=== PATIENT | male | born 1960 | race Caucasian/White ===

== ENCOUNTER 2021-03-27 00:45 | Inpatient (IN) | payer BC, SELFPAY ==
--- NOTE | ~2021-03-27 | US_ITS ---
EXAMINATION: US liver CLINICAL INFORMATION: Evaluate gallbladder, bile duct COMPARISON: CT scan from 03/27/2021 same day TECHNIQUE: High-frequency linear transducer ultrasound utilized, area of interest scanned, liver gallbladder and biliary tree FINDINGS: Cyst in the left lobe of the liver 1.8 x 1.8 x 1.3 cm, cyst in the right lobe 1.3 x 1.6 x 1.3 cm. The liver is diffusely echogenic suggesting hepatic steatosis. Difficult to confidently correlate to the finding on ultrasound by the described lesion on CT scan given the limitation of ultrasound. Gallbladder: There are multiple gallstones. No ultrasound evidence of cholecystitis. No wall thickening, no tenderness, no pericholecystic fluid. CBD normal in diameter 0.4 cm. Right kidney normal in size and texture 15.5 cm, there is a cyst in the right kidney 2.7 x 3.2 x 2.8 cm. US/US abdomen limited IMPRESSION: 1. Cholelithiasis without ultrasound evidence of acute cholecystitis. 2. Left kidney was not included on this limited liver ultrasound, described complex cystic lesion in the left kidney by CT scan not seen by ultrasound or evaluated, consider correlation with follow-up MRI. 3. Consider correlation with follow-up MRI to further characterize the hypodense liver cystic lesions seen on the CT scan.
--- NOTE | ~2021-03-27 | CT_ITS ---
EXAMINATION: CT ABDOMEN AND PELVIS WITHOUT CONTRAST CLINICAL INFORMATION: Right-sided pain COMPARISON: None TECHNIQUE: Multidetector volumetric imaging was performed from the superior aspect of the liver through the pubic symphysis. Sagittal and coronal reformatted images were obtained on the technologist's workstation. This CT examination was performed using dose optimization techniques as appropriate, variously including the following: *Automated exposure control *Adjustment of mA and/or kV according to patient size (this includes techniques or standardized protocols for targeted exams where dose is matched to indication/reason for exam; i.e. extremities or head) *Use of iterative reconstruction technique DLP: 893 mGy-cm FINDINGS: LUNG BASES: Minimal nodular density right base posteriorly measuring approximately 2 mm as well as the middle lobe x2 measuring 3 and 4 mm lateral segment. Pleural-based nodular density left base posterolaterally measures approximately 7 mm. There is nonspecific pleural thickening at the right base posteriorly. Minor pleural fluid not excluded. No pericardial disease. LIVER, GALLBLADDER, AND BILIARY TREE: Hepatomegaly with a slightly irregular contour to the liver prominence of the left lobe suggesting cirrhosis. Low-density focus within the right lobe measuring up to 11 mm segment 5. No biliary ductal dilatation grossly. Gallstones without acute inflammatory changes within the gallbladder lumen. PANCREAS: Mild peripancreatic haziness infiltration suggesting mild pancreatitis within the pancreatic head. The pancreatic duct dilatation or any gross abnormality on this nonenhanced study. Pancreatic duct appears top normal he up to 3 mm best seen coronally. No fluid collection. Acute inflammatory changes extend into the pelvis where there is free fluid measuring simple fluid at 2 Hounsfield units. SPLEEN: Splenule noted. ADRENAL GLANDS: Unremarkable. KIDNEYS AND URETERS: No hydronephrosis but there are multiple cysts high density well-defined lesions as well as cystic lesions. Lesion upper pole measures up to 73 Hounsfield units and up to 4.6 cm maximum diameter. These are all consistent with hyperdense cysts. No perinephric collection. No definite calculus obstructive uropathy. BLADDER: Unremarkable. GASTROINTESTINAL TRACT: The small and large bowel are unremarkable. The appendix is unremarkable. ABDOMINAL WALL: Small fat-containing umbilical hernia. LYMPH NODES: There is generalized reactive appearing lymphadenopathy starting at the bouchra hepatis as well as along the retroperitoneum. No pathologic enlargement. VASCULAR: Unremarkable. PELVIC VISCERA: Unremarkable. OSSEOUS STRUCTURES: Unremarkable. CT/CT abdomen pelvis wo con IMPRESSION: 1. Findings are most consistent with acute pancreatitis on this nonenhanced study. Consider elective follow-up to exclude an underlying lesion with contrast. 2. Findings of cirrhosis with nonspecific segment 5 lesion which should be assessed with MRI with contrast more definitively. 3. Multiple renal lesions favoring hyperdense cyst and benign cysts which can also be definitively characterized on MRI. 4. Gallstones without acute inflammatory changes. 5. Nonspecific pulmonary nodules at the bases as above. According to the UPDATED 2017 Fleischner Society recommendations, the advised follow-up imaging for multiple solid nodules, the largest measuring 6 mm or greater, is: LOW RISK PATIENT: CT at 3-6 months, then consider CT at 18-24 months. HIGH RISK PATIENT: CT at 3-6 months, then at 18-24 months.
[2021-03-27 01:04] VITALS: BP 153/89; PULSE 105; RESP 22; TEMP 36.5; O2SAT 96; BMI 30.9
[2021-03-27 06:34] VITALS: BP 135/89; PULSE 109; RESP 16; TEMP 37; O2SAT 96
[2021-03-27 06:52] LABS: MANUAL DIFF FLAG NO
--- NOTE | 2021-03-27 06:53 | ED.ABDPAIN ---
HPI - Abdominal Pain General Chief Complaint: Abdominal Pain Stated Complaint: abd and side pain Time Seen by Provider: 03/27/21 06:53 Source: patient Mode of arrival: ambulatory Limitations: no limitations History of Present Illness HPI narrative: Patient constipated for last 2 weeks, took stool softener moving his bowels now, complaining of diffuse abdominal pain mostly localized in right upper quadrant epigastric and left lower quadrant patient keep moving from 1 location on the location no relation with food patient does not feel hungry feel bloated all the time . Patient never had any gallstone or kidney stone no hematuria no fever no chills no blood in the stool never had similar pain in the past no abdominal surgeries in the past. Related Data Home Medications Medication Instructions Recorded Confirmed allopurinol 300 mg tablet 300 mg PO DAILY 12/02/20 03/27/21 timolol 0.25 % eye drops 1 drp OPHTHALMIC (EYE) DAILY 12/02/20 03/27/21 B-complex with vitamin C 1 tab PO DAILY 03/27/21 03/27/21 clonidine HCl 0.1 mg tablet 0.1 mg PO DAILY 03/27/21 03/27/21 multivitamin 1 tab PO DAILY 03/27/21 03/27/21 Previous Rx's Medication Instructions Recorded lisinopril 5 mg tablet 5 mg PO DAILY #100 tab 09/25/20 metformin 500 mg tablet 500 mg PO BID #60 tab 01/12/21 atorvastatin 10 mg tablet 10 mg PO DAILY #30 tab 02/25/21 amlodipine 5 mg tablet 5 mg PO DAILY #30 tab 03/09/21 Allergies Allergy/AdvReac Type Severity Reaction Status Date / Time No Known Allergies Allergy Unverified 12/02/20 07:42 [No Known Allergies*] Review of Systems Review of Systems Constitutional : No Weight loss, No Fever, No Chills ENT/Mouth : No sore throat, No Rhinorrhea Eyes: No Eye Pain, No Swelling Cardiovascular : No Chest Pain, no palpitations Respiratory : No Cough, No Sputum, no shortness of breath Gastrointestinal : no Nausea, No Vomiting, No Diarrhea, + abdominal Pain, no black stools Genitourinary : No Dysuria, No Urinary Frequency Musculoskeletal : No joint pain, No Myalgias, No Joint Swelling Skin : No Skin Lesions, No rash Neuro : No Weakness, No Numbness, No Dizziness, No Headache Psych : No Anxiety/Panic, No Depression Heme/Lymph: No Bruising, No Lymphadenopathy Endocrine : No Polyuria, No Polydipsia All other systems reviewed and are negative Physical Exam Vital Signs: Vital Signs: Last Vital Signs Temp 98.6 F 03/27/21 06:34 Pulse 94 03/27/21 10:51 Resp 18 03/27/21 10:51 BP 139/82 03/27/21 10:51 Pulse Ox 97 03/27/21 10:51 Body Mass Index 30.9 Appearance: Alert. Oriented X3. No acute distress. Eyes: No pallor or icterus ENT: Pharynx normal. Oral Mucosa moist Neck: Normal inspection. Neck supple. CVS: Normal heart rate and rhythm. Pulses normal. Respiratory: No respiratory distress. Equal air entry bilateral, no wheezing/rales/rhonchi Abdomen: Soft, mild tenderness epigastric area and right upper quadrant and mid abdomen no rebound tenderness or guarding Bowel sounds are present, no mass palpable, no CVA tenderness Skin: Skin warm and dry. Normal skin color. Normal skin turgor. Extremities: No lower extremity edema. No calf tenderness Neuro: Oriented X 3. MDM - Abdominal Pain MDM Narrative Medical decision making narrative: Patient history of alcohol use never had any pancreatitis in the past came here for 2 weeks of mid abdominal pain with slight nausea and fullness CT scan showed pancreatitis uncomplicated with gallstones. Lipase 3885. Will admit patient for IV hydration and pain management. Patient's triglyceridein 2018 was normal Differential Diagnosis Differential diagnosis: Likely abdominal pain Lab Data Attestation: I reviewed the patient's lab results. Result diagrams: 03/27/21 06:48 03/27/21 11:48 Labs: Lab Results 03/27/21 03/27/21 03/27/21 Range/Units 06:48 06:48 06:48 WBC 13.0 H (4.8-10.8) X10*3/uL RBC 4.37 L (4.60-5.80) X10*6/uL Hgb 14.7 (14.0-18.0) g/dl Hct 41.2 L (42-52) % MCV 94.3 (80-98) fL MCH 33.6 H (27.0-33.0) pg MCHC 35.7 (31.0-36.0) g/dl RDW 12.7 (11.0-16.0) % Plt Count 235 (160-400) X10*3/uL MPV 9.8 (9.4-12.4) fL Immature Gran % (Auto) 0.7 H (0.0-0.4) % Neut % (Auto) 78.2 H (45-73) % Lymph % (Auto) 9.2 L (20-40) % [place] % (Auto) 11.5 H (2-11) % Eos % (Auto) 0.2 (0-4) % Baso % (Auto) 0.2 (0-2) % Lymph # (Auto) 1.2 (1.2-4.9) X10*3/uL [place] # (Auto) 1.5 H (0.1-1.2) X10*3/uL Eos # (Auto) 0.0 (0.0-0.4) X10*3/uL Baso # (Auto) 0.0 (0.0-0.2) X10*3/uL Abs Immat Gran (auto) 0.09 H (0.00-0.03) X10*3/uL Absolute Neuts (auto) 10.2 H (2.0-8.3) X10*3/uL Absolute Nucleated RBC 0.000 (0.0-0.012) X10*3/uL Nucleated RBC % (auto) 0.0 (0.0-0.2) /100WBC Sodium 125 L (135-145) mmol/L Potassium 4.7 (3.3-5.1) mmol/L Chloride 92 L (96-108) mmol/L Carbon Dioxide 21 L (22-29) mmol/L Anion Gap 17 (12-20) BUN 7 L (9-16) mg/dL Creatinine 0.70 (0.5-1.4) mg/dL Estim Creat Clear Calc 151.9 Estimated GFR > 60 POC Glucose (60-115) mg/dL Random Glucose 173 H (60-115) mg/dL Osmolality (281-305) mosm/kg Calcium 9.7 (8.4-10.2) mg/dL Magnesium 2.1 (1.6-2.6) mg/dL Total Bilirubin 0.9 (0.0-1.0) mg/dL Direct Bilirubin 0.5 (0.0-0.5) mg/dL AST 70 H (5-37) U/L ALT 67 H (0-40) U/L Alkaline Phosphatase 261 H (39-117) U/L Total Protein 8.1 H (6.5-8.0) g/dL Albumin 4.2 (3.5-5.0) g/dL Triglycerides 104 mg/dL LDL Cholesterol Direct Cancelled Lipase 3885 H (8-78) U/L COVID-19 (RACHEL) (Negative) COVID-19 Clin Com 03/27/21 03/27/21 03/27/21 Range/Units 06:48 10:22 10:31 WBC (4.8-10.8) X10*3/uL RBC (4.60-5.80) X10*6/uL Hgb (14.0-18.0) g/dl Hct (42-52) % MCV (80-98) fL MCH (27.0-33.0) pg MCHC (31.0-36.0) g/dl RDW (11.0-16.0) % Plt Count (160-400) X10*3/uL MPV (9.4-12.4) fL Immature Gran % (Auto) (0.0-0.4) % Neut % (Auto) (45-73) % Lymph % (Auto) (20-40) % [place] % (Auto) (2-11) % Eos % (Auto) (0-4) % Baso % (Auto) (0-2) % Lymph # (Auto) (1.2-4.9) X10*3/uL [place] # (Auto) (0.1-1.2) X10*3/uL Eos # (Auto) (0.0-0.4) X10*3/uL Baso # (Auto) (0.0-0.2) X10*3/uL Abs Immat Gran (auto) (0.00-0.03) X10*3/uL Absolute Neuts (auto) (2.0-8.3) X10*3/uL Absolute Nucleated RBC (0.0-0.012) X10*3/uL Nucleated RBC % (auto) (0.0-0.2) /100WBC Sodium (135-145) mmol/L Potassium (3.3-5.1) mmol/L Chloride (96-108) mmol/L Carbon Dioxide (22-29) mmol/L Anion Gap (12-20) BUN (9-16) mg/dL Creatinine (0.5-1.4) mg/dL Estim Creat Clear Calc Estimated GFR POC Glucose 161 H (60-115) mg/dL Random Glucose (60-115) mg/dL Osmolality 266 L (281-305) mosm/kg Calcium (8.4-10.2) mg/dL Magnesium (1.6-2.6) mg/dL Total Bilirubin (0.0-1.0) mg/dL Direct Bilirubin (0.0-0.5) mg/dL AST (5-37) U/L ALT (0-40) U/L Alkaline Phosphatase (39-117) U/L Total Protein (6.5-8.0) g/dL Albumin (3.5-5.0) g/dL Triglycerides mg/dL LDL Cholesterol Direct Lipase (8-78) U/L COVID-19 (RACHEL) Negative (Negative) COVID-19 Clin Com See Note Imaging Data CT scan - abdomen: Attestation: I personally reviewed and interpreted this imaging study as follows: Radiologist's impression: [place] [id number] CT Scan Report Signed Patient: Jose De MR#: [id number] : 1960 Acct:[id number] Age/Sex: 61 / M ADM Date: 03/27/21 Loc: HO.ED Attending Dr: Ordering Physician: Juanito Vila MD Date of Service: 03/27/21 Procedure(s): CT abdomen pelvis wo con Accession Number(s): [id number] cc: Juanito Vila MD~ EXAMINATION: CT ABDOMEN AND PELVIS WITHOUT CONTRAST? CLINICAL INFORMATION: Right-sided pain? COMPARISON: None? TECHNIQUE: Multidetector volumetric imaging was performed from the superior aspect of the liver through the pubic symphysis. Sagittal and coronal reformatted images were obtained on the technologist's workstation.? This CT examination was performed using dose optimization techniques as appropriate, variously including the following: *Automated exposure control *Adjustment of mA and/or kV according to patient size (this includes techniques or standardized protocols for targeted exams where dose is matched to indication/reason for exam; i.e. extremities or head) *Use of iterative reconstruction technique DLP: 893 mGy-cm FINDINGS: LUNG BASES: Minimal nodular density right base posteriorly measuring approximately 2 mm as well as the middle lobe x2 measuring 3 and 4 mm lateral segment. Pleural-based nodular density left base posterolaterally measures approximately 7 mm. There is nonspecific pleural thickening at the right base posteriorly. Minor pleural fluid not excluded. No pericardial disease.? LIVER, GALLBLADDER, AND BILIARY TREE: Hepatomegaly with a slightly irregular contour to the liver prominence of the left lobe suggesting cirrhosis. Low-density focus within the right lobe measuring up to 11 mm segment 5. No biliary ductal dilatation grossly. Gallstones without acute inflammatory changes within the gallbladder lumen.? PANCREAS: Mild peripancreatic haziness infiltration suggesting mild pancreatitis within the pancreatic head. The pancreatic duct dilatation or any gross abnormality on this nonenhanced study. Pancreatic duct appears top normal he up to 3 mm best seen coronally. No fluid collection. Acute inflammatory changes extend into the pelvis where there is free fluid measuring simple fluid at 2 Hounsfield units. SPLEEN: Splenule noted.? ADRENAL GLANDS: Unremarkable.? KIDNEYS AND URETERS: No hydronephrosis but there are multiple cysts high density well-defined lesions as well as cystic lesions. Lesion upper pole measures up to 73 Hounsfield units and up to 4.6 cm maximum diameter. These are all consistent with hyperdense cysts. No perinephric collection. No definite calculus obstructive uropathy.? BLADDER: Unremarkable.? GASTROINTESTINAL TRACT: The small and large bowel are unremarkable. The appendix is unremarkable.? ABDOMINAL WALL: Small fat-containing umbilical hernia.? LYMPH NODES: There is generalized reactive appearing lymphadenopathy starting at the bouchra hepatis as well as along the retroperitoneum. No pathologic enlargement. VASCULAR: Unremarkable. PELVIC VISCERA: Unremarkable.? OSSEOUS STRUCTURES: Unremarkable.? CT/CT abdomen pelvis wo con IMPRESSION: ? 1. Findings are most consistent with acute pancreatitis on this nonenhanced study. Consider elective follow-up to exclude an underlying lesion with contrast. 2. Findings of cirrhosis with nonspecific segment 5 lesion which should be assessed with MRI with contrast more definitively. 3. Multiple renal lesions favoring hyperdense cyst and benign cysts which can also be definitively characterized on MRI. 4. Gallstones without acute inflammatory changes. 5. Nonspecific pulmonary nodules at the bases as above. According to the UPDATED 2017 Fleischner Society recommendations, the advised follow-up imaging for multiple solid nodules, the largest measuring 6 mm or greater, is: ?? LOW RISK PATIENT: CT at 3-6 months, then consider CT at 18-24 months. ?? HIGH RISK PATIENT: CT at 3-6 months, then at 18-24 months. Discharge Plan Discharge Clinical Impression: Pancreatitis Qualifiers: Chronicity: acute Pancreatitis type: alcohol induced Acute pancreatitis complication: no infection or necrosis Qualified Code(s): K85.20 - Alcohol induced acute pancreatitis without necrosis or infection Patient Disposition: Admitted As Inpatient [facility] Past Medical History Medical History Diabetes ETOH abuse HTN (hypertension) Hx of gout Hyperlipidemia Tobacco use Surgical History (Updated 03/27/21 @ 11:00 by ELIEL Azevedo) H/O left knee surgery Family History Family History (Updated 03/27/21 @ 11:04 by ELIEL Azevedo) Father Lung cancer Mother Diabetes Social History Social History (Updated 03/27/21 @ 11:05 by ELIEL Azevedo) Household Members: Spouse Alcohol intake: current Alcohol intake frequency: holidays/special occasions only Patient Tobacco Use Status: Never used Tobacco Use of substances other than those prescribed or required for medical reasons: No Advance Directives: No Advance Directives Information Provided: Yes
[2021-03-27 06:54] LABS: Basophils Percent Auto 0.2 % (0-2); Eosinophils Percent Auto 0.2 % (0-4); Hematocrit 41.2 % (42-52); Hemoglobin 14.7 g/dl (14.0-18.0); Imm Gran Abs Auto 0.09 X10*3/uL (0.00-0.03); Imm Gran Pct Auto 0.7 % (0.0-0.4); Lymphocytes Absolute Auto 1.2 X10*3/uL (1.2-4.9); Lymphocytes Percent Auto 9.2 % (20-40); Mean Corpuscular HGB Conc 35.7 g/dl (31.0-36.0); Mean Corpuscular Hemoglobin 33.6 pg (27.0-33.0); Mean Corpuscular Volume 94.3 fL (80-98); Mean Platelet Volume 9.8 fL (9.4-12.4); Monocytes Absolute Auto 1.5 X10*3/uL (0.1-1.2); Monocytes Percent Auto 11.5 % (2-11); Neutrophils Absolute Auto 10.2 X10*3/uL (2.0-8.3); Neutrophils Percent Auto 78.2 % (45-73); Platelet Count 235 X10*3/uL (160-400); Red Blood Count 4.37 X10*6/uL (4.60-5.80); Red Cell Distribution Width 12.7 % (11.0-16.0)
[2021-03-27 07:50] LABS: Alanine Aminotransferase 67 U/L (0-40); Albumin Level 4.2 g/dL (3.5-5.0); Alkaline Phosphatase 261 U/L (39-117); Anion Gap 17 (12-20); Aspartate Amino Transferase 70 U/L (5-37); Bilirubin Direct 0.5 mg/dL (0.0-0.5); Bilirubin Total 0.9 mg/dL (0.0-1.0); Blood Urea Nitrogen 7 mg/dL (9-16); Calcium 9.7 mg/dL (8.4-10.2); Carbon Dioxide 21 mmol/L (22-29); Chloride 92 mmol/L (96-108); Creatinine Clr Calc Pharmacy 151.9; Estimated Glomerular Filt Rate > 60; Glucose Random 173 mg/dL (60-115); Potassium 4.7 mmol/L (3.3-5.1); Sodium 125 mmol/L (135-145); Total Protein 8.1 g/dL (6.5-8.0)
[2021-03-27 07:55] LABS: Lipase 3885 U/L (8-78)
[2021-03-27] MEDS: 0.9 % Sodium Chloride 1,000 ML 999 ML IVCONT ×2 (08:17→10:41)
--- NOTE | 2021-03-27 08:18 | PC.NURSE ---
nad, ndeclined all meds, nad, sitting in chair w legs crossed
--- NOTE | 2021-03-27 10:27 | ECG_ITS ---
Test Reason : PANCREATITIS Blood Pressure : / mmHG Vent. Rate : 096 BPM Atrial Rate : 096 BPM P-R Int : 186 ms QRS Dur : 110 ms QT Int : 396 ms P-R-T Axes : 026 -28 016 degrees QTc Int : 500 ms Normal sinus rhythm Prolonged QT Abnormal ECG No previous ECGs available Referred By: Juanito Vila Electronically Signed By:SHI MONTIEL
--- NOTE | 2021-03-27 10:32 | PHA.MEDREC ---
Pharmacy Consult ? Medication Reconciliation Pharmacy has completed the medication reconciliation.
[2021-03-27 10:35] LABS: Glucose, Whole Blood 161 mg/dL (60-115)
[2021-03-27 10:48] LABS: Triglycerides 104 mg/dL
[2021-03-27 10:51] VITALS: BP 139/82; PULSE 94; RESP 18; O2SAT 97
[2021-03-27 10:52] LABS: COVID-19 Test Negative (Negative); IDNOW Serial# 9DD0AD1C
--- NOTE | 2021-03-27 10:55 | P.HPHOSP_ITS ---
History of Present Illness Date of Service: 03/27/21 <ELIEL Azevedo - Last Filed: 03/27/21 11:21> Chief Complaint: Abdominal pain <ELIEL Azevedo - Last Filed: 03/27/21 11:21> This is a <ELIEL Azevedo - Last Filed: 03/27/21 11:21> [facility] Medical History: Medical History Diabetes ETOH abuse HTN (hypertension) Hx of gout Hyperlipidemia Tobacco use <ELIEL Azevedo - Last Filed: 03/27/21 11:21> Functional capacity: independent ambulation <ELIEL Azevedo - Last Filed: 03/27/21 11:21> Family History: Family History (Updated 03/27/21 @ 11:04 by ELIEL Azevedo) Father Lung cancer Mother Diabetes <ELIEL Azevedo - Last Filed: 03/27/21 11:21> Surgical History: Surgical History (Updated 03/27/21 @ 11:00 by ELIEL Azevedo) H/O left knee surgery <ELIEL Azevedo - Last Filed: 03/27/21 11:21> Social History: Social History (Updated 03/27/21 @ 11:05 by ELIEL Azevedo) Household Members: Spouse Alcohol intake: current Alcohol intake frequency: holidays/special occasions only Patient Tobacco Use Status: Never used Tobacco Use of substances other than those prescribed or required for medical reasons: No Advance Directives: No Advance Directives Information Provided: Yes <ELIEL Azevedo - Last Filed: 03/27/21 11:21> Meds Allergies/Adverse reactions: Allergies Allergy/AdvReac Type Severity Reaction Status Date / Time No Known Allergies Allergy Unverified 12/02/20 07:42 [No Known Allergies*] <ELIEL Azevedo - Last Filed: 03/27/21 11:21> Active Medications: Current Medications Generic Name Dose Route Start Last Admin Trade Name Freq PRN Reason Stop Dose Admin Pharmacy Consult 1 each 03/27/21 10:17 Consult Rx Perform Med Rec MISCELLANE ONCE PRN Consult order <ELIEL Azevedo - Last Filed: 03/27/21 11:21> Home medications: Home Medications Medication Instructions Recorded Confirmed Last Taken Type allopurinol 300 mg tablet 300 mg PO DAILY 12/02/20 03/27/21 03/26/21 History timolol 0.25 % eye drops 1 drp OPHTHALMIC (EYE) DAILY 12/02/20 03/27/21 03/26/21 History B-complex with vitamin C 1 tab PO DAILY 03/27/21 03/27/21 03/26/21 History clonidine HCl 0.1 mg tablet 0.1 mg PO DAILY 03/27/21 03/27/21 03/26/21 History multivitamin 1 tab PO DAILY 03/27/21 03/27/21 03/26/21 History <ELIEL Azevedo - Last Filed: 03/27/21 11:21> Physical Exam Vital Signs and Narrative: Vital Signs: Last Vital Signs Temp 98.6 F 03/27/21 06:34 Pulse 94 03/27/21 10:51 Resp 18 03/27/21 10:51 BP 139/82 03/27/21 10:51 Pulse Ox 97 03/27/21 10:51 Body Mass Index 30.9 <ELIEL Azevedo - Last Filed: 03/27/21 11:21> Const: General: healthy appearing, comfortable, alert and awake <ELIEL Azevedo Last Filed: 03/27/21 11:21> Nutritional Appearance: well nourished <ELIEL Azevedo Last Filed: 03/27/21 11:21> Orientation/consciousness: patient oriented x3 <ELIEL Azevedo Last Filed: 03/27/21 11:21> HENMT: Head: Yes normocephalic and Yes atraumatic <ELIEL Azevedo Last Filed: 03/27/21 11:21> Eyes: Sclerae: sclerae normal <ELIEL Azevedo Last Filed: 03/27/21 11:21> Chest: Chest palpation & inspection: normal inspection of the chest <ELIEL Landa Last Filed: 03/27/21 11:21> Resp: Effort & Inspection: normal respiratory effort and no respiratory distress <ELIEL Azevedo Last Filed: 03/27/21 11:21> Cardio: Rate: regular rate <ELIEL Azevedo - Last Filed: 03/27/21 11:21> Rhythm: regular rhythm <ELIEL Azevedo - Last Filed: 03/27/21 11:21> GI: Other: mild tenderness to palpation in epigastrum <ELIEL Azevedo - Last Filed: 03/27/21 11:21> Palpation (GI): Soft to palpation and no guarding <ELIEL Azevedo - Last Filed: 03/27/21 11:21> Neuro: General: patient oriented x3 <ELIEL Azevedo - Last Filed: 03/27/21 11:21> Cranial nerves: Yes CN's II-XII intact bilaterally and Yes Bilaterally intact EOM present <ELIEL Azevedo - Last Filed: 03/27/21 11:21> Results Labs CBC and Chem 7: : 03/27/21 06:48 03/27/21 11:48 <ELIEL Azevedo - Last Filed: 03/27/21 11:21> Labs: Laboratory Results - last 24 hr 03/27/21 03/27/21 03/27/21 06:48 06:48 06:48 MCV 94.3 MCH 33.6 H MCHC 35.7 RDW 12.7 Plt Count 235 MPV 9.8 Immature Gran % (Auto) 0.7 H Neut % (Auto) 78.2 H Lymph % (Auto) 9.2 L [place] % (Auto) 11.5 H Eos % (Auto) 0.2 Baso % (Auto) 0.2 Lymph # (Auto) 1.2 [place] # (Auto) 1.5 H Eos # (Auto) 0.0 Baso # (Auto) 0.0 Abs Immat Gran (auto) 0.09 H Absolute Neuts (auto) 10.2 H Absolute Nucleated RBC 0.000 Nucleated RBC % (auto) 0.0 Anion Gap 17 Estim Creat Clear Calc 151.9 Estimated GFR > 60 POC Glucose Random Glucose 173 H Calcium 9.7 Total Bilirubin 0.9 Direct Bilirubin 0.5 AST 70 H ALT 67 H Alkaline Phosphatase 261 H Total Protein 8.1 H Albumin 4.2 Triglycerides 104 LDL Cholesterol Direct Cancelled Lipase 3885 H COVID-19 (RACHEL) COVID-19 Clin Com 03/27/21 03/27/21 10:22 10:31 MCV MCH MCHC RDW Plt Count MPV Immature Gran % (Auto) Neut % (Auto) Lymph % (Auto) [place] % (Auto) Eos % (Auto) Baso % (Auto) Lymph # (Auto) [place] # (Auto) Eos # (Auto) Baso # (Auto) Abs Immat Gran (auto) Absolute Neuts (auto) Absolute Nucleated RBC Nucleated RBC % (auto) Anion Gap Estim Creat Clear Calc Estimated GFR POC Glucose 161 H Random Glucose Calcium Total Bilirubin Direct Bilirubin AST ALT Alkaline Phosphatase Total Protein Albumin Triglycerides LDL Cholesterol Direct Lipase COVID-19 (RACHEL) Negative COVID-19 Clin Com See Note <ELIEL Azevedo - Last Filed: 03/27/21 11:21> Imaging Radiologist's Impressions: Impressions Abdomen/Pelvis CT 03/27/21 07:22 IMPRESSION: 1. Findings are most consistent with acute pancreatitis on this nonenhanced study. Consider elective follow-up to exclude an underlying lesion with contrast. 2. Findings of cirrhosis with nonspecific segment 5 lesion which should be assessed with MRI with contrast more definitively. 3. Multiple renal lesions favoring hyperdense cyst and benign cysts which can also be definitively characterized on MRI. 4. Gallstones without acute inflammatory changes. 5. Nonspecific pulmonary nodules at the bases as above. According to the UPDATED 2017 Fleischner Society recommendations, the advised follow-up imaging for multiple solid nodules, the largest measuring 6 mm or greater, is: LOW RISK PATIENT: CT at 3-6 months, then consider CT at 18-24 months. HIGH RISK PATIENT: CT at 3-6 months, then at 18-24 months. <ELIEL Azevedo - Last Filed: 03/27/21 11:21> Assessment and Plan (1) Pancreatitis: Qualifiers: Acute pancreatitis complication: no infection or necrosis Chronicity: acute Pancreatitis type: alcohol induced Qualified Code(s): K85.20 - Alcohol induced acute pancreatitis without necrosis or infection <ELIEL Azevedo - Last Filed: 03/27/21 11:21> Status: Acute <ELIEL Azevedo - Last Filed: 03/27/21 11:21> 61-year-old male with history of hypertension, hyperlipidemia, diabetes, alcohol use disorder who presents to emergency department with abdominal pain found to have acute pancreatitis Acute pancreatitis Likely secondary to underlying alcohol use -will check TG; gallstones on imaging but without acute inflammatory -clear liquid diet, ADAT -pain control -IV fluid -trend lipase Hyponatremia Likely secondary to etoh -check urine studies -repeat BMP this afternoon Elevated LFTs likely r/t etoh use -follow liver function alcohol use disorder no evidence of alcohol withdrawal at this time no h/o alcohol withdrawal -CIWA -vitamin supplementation -check lytes, replace prn DM -hold metformin -SSI HTN BP controlled -continue Norvasc, clonidine HLD -continue statin Gout -hold allopurinol dvt ppx - lovenox code status - full Attending: Dr. Henriquez <ELIEL Azevedo - Last Filed: 03/27/21 11:21> 61-year-old male with history of hypertension, hyperlipidemia, diabetes, alcohol use disorder who presents to emergency department with abdominal pain found to have acute pancreatitis Acute pancreatitis Likely secondary to underlying alcohol use -will check TG; gallstones on imaging but without acute inflammatory -clear liquid diet, ADAT -pain control -IV fluid -trend lipase Hyponatremia Likely secondary to etoh -check urine studies -repeat BMP this afternoon Elevated LFTs likely r/t etoh use -follow liver function alcohol use disorder no evidence of alcohol withdrawal at this time no h/o alcohol withdrawal -CIWA -vitamin supplementation -check lytes, replace prn DM -hold metformin -SSI HTN BP controlled -continue Norvasc, clonidine HLD -continue statin Gout -hold allopurinol dvt ppx - lovenox code status - full Attending: Dr. Henriquez Attending Attestation: Patient seen and examined independently and I was present during [place] portion of E/M service. Agree with ELIEL Braxton's history, physical, assessment, and plan as above. 61 yo being admitted for pancreatitis, suspected due to EtOH use. Also has sto nabila on CT. Will hydrate, pain control. Check u/s to rule out biliary issues. <Igor Henriquez MD - Last Filed: 03/27/21 13:12> Quality Stroke Does the patient have a stroke diagnosis?: No <ELIEL Azevedo - Last Filed: 03/27/21 11:21> VTE Prior VTE?: No <ELIEL Azevedo - Last Filed: 03/27/21 11:21> VTE Risk Level:: Medical - moderate - high <ELIEL Azevedo - Last Filed: 03/27/21 11:21> VTE Device Contraindication: Treatment Not Indicated <ELIEL Azevedo - Last Filed: 03/27/21 11:21> VTE Drug Contraindication: N/A - Med Ordered <ELIEL Azevedo - Last Filed: 03/27/21 11:21>
[2021-03-27 11:17] LABS: Magnesium 2.1 mg/dL (1.6-2.6)
[2021-03-27 11:27] LABS: Osmolality, Serum 266 mosm/kg (281-305)
[2021-03-27 12:08] LABS: Glucose, Whole Blood 142 mg/dL (60-115)
[2021-03-27 12:31] LABS: Anion Gap 13 (12-20); Blood Urea Nitrogen 6 mg/dL (9-16); Calcium 8.7 mg/dL (8.4-10.2); Carbon Dioxide 19 mmol/L (22-29); Chloride 98 mmol/L (96-108); Creatinine Clr Calc Pharmacy 180.2; Estimated Glomerular Filt Rate > 60; Glucose Random 145 mg/dL (60-115); Potassium 4.2 mmol/L (3.3-5.1); Sodium 126 mmol/L (135-145)
[2021-03-27 17:10] LABS: Glucose, Whole Blood 128 mg/dL (60-115)
[2021-03-27 17:20] LABS: Glucose Urine UA NEG (NEG); Leukocyte Esterase Urine NEG (NEG); Nitrite Urine NEG (NEG); Specific Gravity - Urine <= 1.005 (1.005-1.025); Urine Blood NEG (NEG); Urine Ketones NEG (NEG); Urine Protein NEG (NEG-TRACE)
[2021-03-27 17:24] LABS: Appearance Urine CLEAR; Color Urine YELLOW
[2021-03-27 17:44] LABS: RBC Urine 0 /HPF (0); Squamous Epithelial Cell Urine TRACE /LPF; WBC Urine 0-2 /HPF (0-4)
[2021-03-27 20:31] VITALS: BP 146/86; PULSE 103; RESP 20; TEMP 36.8; O2SAT 94
[2021-03-27] MEDS: Lactated Ringers 1,000 ML 125 ML IVCONT (20:32)
[2021-03-27] MEDS: 0.9 % Sodium Chloride Flush 3 ML SYRINGE IVFLUSH (20:32)
[2021-03-27 20:40] LABS: Glucose, Whole Blood 147 mg/dL (60-115)
[2021-03-27] MEDS: Enoxaparin Sodium 40 MG/0.4 ML SYRINGE SUBCUT (20:41)
[2021-03-27 23:31] VITALS: BP 136/69; PULSE 88; RESP 19; TEMP 36.7; O2SAT 95
[2021-03-28] VITALS (8 sets, daily range): BP systolic 113–158; BP diastolic 61–95; PULSE 72–87; RESP 18–20; TEMP 36.2–37; O2SAT 94–96
[2021-03-28] MEDS: Lactated Ringers 1,000 ML 125 ML IVCONT ×3 (04:03→20:09)
[2021-03-28 06:57] LABS: Hematocrit 37.6 % (42-52); Hemoglobin 13.3 g/dl (14.0-18.0); Mean Corpuscular HGB Conc 35.4 g/dl (31.0-36.0); Mean Corpuscular Hemoglobin 33.7 pg (27.0-33.0); Mean Corpuscular Volume 95.2 fL (80-98); Mean Platelet Volume 10.3 fL (9.4-12.4); Platelet Count 197 X10*3/uL (160-400); Red Blood Count 3.95 X10*6/uL (4.60-5.80); White Blood Count 6.4 X10*3/uL (4.8-10.8)
[2021-03-28 07:22] LABS: Glucose, Whole Blood 146 mg/dL (60-115)
[2021-03-28 07:29] LABS: Alanine Aminotransferase 56 U/L (0-40); Albumin Level 3.7 g/dL (3.5-5.0); Alkaline Phosphatase 233 U/L (39-117); Anion Gap 14 (12-20); Aspartate Amino Transferase 54 U/L (5-37); Bilirubin Direct 0.5 mg/dL (0.0-0.5); Bilirubin Total 0.8 mg/dL (0.0-1.0); Blood Urea Nitrogen 7 mg/dL (9-16); Calcium 9.3 mg/dL (8.4-10.2); Carbon Dioxide 23 mmol/L (22-29); Chloride 100 mmol/L (96-108); Creatinine Clr Calc Pharmacy 161.1; Estimated Glomerular Filt Rate > 60; Glucose Random 142 mg/dL (60-115); Potassium 4.7 mmol/L (3.3-5.1); Sodium 132 mmol/L (135-145); Total Protein 7.1 g/dL (6.5-8.0)
[2021-03-28 08:10] LABS: Lipase 1467 U/L (8-78)
[2021-03-28] MEDS: lisinopriL 5 MG TABLET PO (08:46)
[2021-03-28] MEDS: cloNIDine HCL 0.1 MG TABLET PO (08:46)
[2021-03-28] MEDS: Atorvastatin Calcium 10 MG TABLET PO (08:46)
[2021-03-28] MEDS: Multivitamin TABLET 1 TAB PO (08:46)
[2021-03-28] MEDS: Thiamine HCL 100 MG TABLET PO (08:46)
[2021-03-28] MEDS: amLODIPine Besylate 5 MG TABLET PO (08:47)
[2021-03-28] MEDS: Folic Acid 1 MG TABLET PO (08:47)
--- NOTE | 2021-03-28 10:39 | HO.PM.IMPN ---
Subjective Subjective Date of Service: 03/28/21 Interval History: seen and examined this AM feeling better, no abdominal pain wants to advance diet Review of Systems General - no fevers or chills Cardiovascular - no chest pain Respiratory - no shortness of breath or cough Abdominal- no abdominal pain, nausea, vomiting, diarrhea Physical Exam Vital Signs: Vital Signs: Last Vital Signs Temp 98.6 F 03/28/21 07:23 Pulse 87 03/28/21 08:47 Resp 19 03/28/21 07:23 BP 134/78 03/28/21 08:47 Pulse Ox 94 03/28/21 07:23 Body Mass Index 30.9 Const: Other: General - no acute distress, appears comfortable Cardiovascular - regular rate and rhythm, S1-S2 Lungs - normal respiratory effort, clear to auscultation bilaterally, no wheezing Abdomen - soft, nontender, no rebound or guarding Extremities - no edema bilaterally Neuro - awake and alert, no focal deficits General: healthy appearing, comfortable, alert and awake Nutritional Appearance: well nourished Orientation/consciousness: patient oriented x3 HENMT: Head: Yes normocephalic and Yes atraumatic Eyes: Sclerae: sclerae normal Chest: Chest palpation & inspection: normal inspection of the chest Resp: Effort & Inspection: normal respiratory effort and no respiratory distress Cardio: Rate: regular rate Rhythm: regular rhythm GI: Other: mild tenderness to palpation in epigastrum Palpation (GI): Soft to palpation and no guarding Neuro: General: patient oriented x3 Cranial nerves: Yes CN's II-XII intact bilaterally and Yes Bilaterally intact EOM present Objective Data Current Medications Generic Name Dose Route Start Last Admin Trade Name Batool PRN Reason Stop Dose Admin Acetaminophen 650 mg 03/27/21 20:05 Acetaminophen 325 Mg Tablet PO Q6H PRN Pain, Mild (Pain Scale 1-3) Amlodipine Besylate 5 mg 03/28/21 09:00 03/28/21 08:47 Amlodipine Besylate 5 Mg Tablet PO 5 mg DAILY LUAREN Administration Protocol Atorvastatin Calcium 10 mg 03/28/21 09:00 03/28/21 08:46 Atorvastatin Calcium 10 Mg Tablet PO 10 mg DAILY LAUREN Administration Clonidine HCl 0.1 mg 03/28/21 09:00 03/28/21 08:46 Clonidine Hcl 0.1 Mg Tablet PO 0.1 mg DAILY LAUREN Administration Protocol Dextrose 25 gm 03/27/21 11:16 Dextrose 50 % 25 Gm/50 Ml Vial IVPUSH Q15M PRN per Hypoglycemia Standing Ord. Protocol Docusate Sodium 100 mg 03/27/21 20:05 Docusate Sodium 100 Mg Capsule PO DAILY PRN Constipation Enoxaparin Sodium 40 mg 03/27/21 21:00 03/27/21 20:41 Enoxaparin Sodium 40 Mg/0.4 Ml Syringe SUBCUT 40 mg Q24H LAUREN Administration Folic Acid 1 mg 03/28/21 09:00 03/28/21 08:47 Folic Acid 1 Mg Tablet PO 1 mg DAILY LAUREN Administration Glucose 15 gm 03/27/21 11:16 Glucose Gel 15 Gm Gel..Gram. PO Q15M PRN per Hypoglycemia Standing Ord. Protocol Lactated Ringer's 1,000 mls @ 125 mls/hr 03/27/21 20:05 03/28/21 04:03 Lr IVCONT 125 mls/hr .Q8H LAUREN Administration Insulin Human Lispro 0 unit 03/27/21 11:30 03/28/21 07:25 Insulin Lispro 100 Unit/Ml 3 Ml Vial SUBCUT Not Given QIDACHS [facility] Protocol Lisinopril 5 mg 03/28/21 09:00 03/28/21 08:46 Lisinopril 5 Mg Tablet PO 5 mg DAILY LAUREN Administration Protocol Morphine Sulfate 2 mg 03/27/21 20:05 Morphine Sulfate 4 Mg/Ml Cartridge IVPUSH Q4H PRN Pain, Severe (Pain Scale 7-10) Protocol Multivitamins 1 tab 03/28/21 09:00 03/28/21 08:46 B-Complex With Vitamin C Tablet PO 1 tab DAILY LAUREN Administration Multivitamins/Vitamin C 1 tab 03/28/21 09:00 03/28/21 08:46 Multivitamin Tablet PO 1 tab DAILY LAUREN Administration Ondansetron HCl 4 mg 03/27/21 20:05 Ondansetron Hcl 4 Mg/2 Ml Vial IVPUSH Q8H PRN Nausea and Vomiting Pharmacy Consult 1 each 03/27/21 10:17 Consult Rx Perform Med Rec MISCELLANE ONCE PRN Consult order Sodium Chloride 3 ml 03/27/21 20:05 03/28/21 08:50 0.9 % Sodium Chloride Flush 3 Ml Syringe IVFLUSH Not Given QSHIFT [facility] Thiamine HCl 100 mg 03/28/21 09:00 03/28/21 08:46 Thiamine Hcl 100 Mg Tablet PO 100 mg DAILY LAUREN Administration Timolol Maleate 1 drop 03/28/21 09:00 03/28/21 08:47 Timolol Maleate Xe 0.25 % Gel 5 Ml Drbtl EYE-BOTH 1 drop DAILY LAUREN Administration Labs CBC & Chem 7: 03/28/21 05:35 03/28/21 05:35 Labs: Laboratory Results - last 24 hr 03/27/21 03/27/21 03/27/21 06:48 06:48 06:48 MCV MCH MCHC RDW Plt Count MPV Absolute Nucleated RBC Nucleated RBC % (auto) Anion Gap Estim Creat Clear Calc Estimated GFR POC Glucose Random Glucose Osmolality 266 L Calcium Magnesium 2.1 Total Bilirubin Direct Bilirubin AST ALT Alkaline Phosphatase Total Protein Albumin Triglycerides 104 LDL Cholesterol Direct Cancelled Lipase Urine Color Urine Appearance Urine pH Ur Specific Jamison Urine Protein Urine Glucose (UA) Urine Ketones Urine Blood Urine Nitrite Ur Leukocyte Esterase Urine RBC Urine WBC Ur Squamous Epith Cells Urine Bacteria COVID-19 (RACHEL) COVID-19 Clin Com 03/27/21 03/27/21 03/27/21 10:22 11:48 12:00 MCV MCH MCHC RDW Plt Count MPV Absolute Nucleated RBC Nucleated RBC % (auto) Anion Gap 13 Estim Creat Clear Calc 180.2 Estimated GFR > 60 POC Glucose 142 H Random Glucose 145 H Osmolality Calcium 8.7 D Magnesium Total Bilirubin Direct Bilirubin AST ALT Alkaline Phosphatase Total Protein Albumin Triglycerides LDL Cholesterol Direct Lipase Urine Color Urine Appearance Urine pH Ur Specific Jamison Urine Protein Urine Glucose (UA) Urine Ketones Urine Blood Urine Nitrite Ur Leukocyte Esterase Urine RBC Urine WBC Ur Squamous Epith Cells Urine Bacteria COVID-19 (RACHEL) Negative COVID-19 Clin Com See Note 03/27/21 03/27/21 03/27/21 17:06 17:10 17:10 MCV MCH MCHC RDW Plt Count MPV Absolute Nucleated RBC Nucleated RBC % (auto) Anion Gap Estim Creat Clear Calc Estimated GFR POC Glucose 128 H Random Glucose Osmolality Calcium Magnesium Total Bilirubin Direct Bilirubin AST ALT Alkaline Phosphatase Total Protein Albumin Triglycerides LDL Cholesterol Direct Lipase Urine Color YELLOW Cancelled Urine Appearance CLEAR Cancelled Urine pH 6.0 Cancelled Ur Specific Jamison <= 1.005 Cancelled Urine Protein NEG Cancelled Urine Glucose (UA) NEG Cancelled Urine Ketones NEG Cancelled Urine Blood NEG Cancelled Urine Nitrite NEG Cancelled Ur Leukocyte Esterase NEG Cancelled Urine RBC 0 Urine WBC 0-2 Ur Squamous Epith Cells TRACE Urine Bacteria NONE COVID-19 (RACHEL) COVID-19 [employer] Com 03/27/21 03/28/21 03/28/21 20:34 05:35 05:35 MCV 95.2 MCH 33.7 H MCHC 35.4 RDW 13.0 Plt Count 197 MPV 10.3 Absolute Nucleated RBC 0.000 Nucleated RBC % (auto) 0.0 Anion Gap 14 Estim Creat Clear Calc 161.1 Estimated GFR > 60 POC Glucose 147 H Random Glucose 142 H Osmolality Calcium 9.3 D Magnesium Total Bilirubin 0.8 Direct Bilirubin 0.5 AST 54 H ALT 56 H Alkaline Phosphatase 233 H Total Protein 7.1 Albumin 3.7 Triglycerides LDL Cholesterol Direct Lipase Urine Color Urine Appearance Urine pH Ur Specific Jamison Urine Protein Urine Glucose (UA) Urine Ketones Urine Blood Urine Nitrite Ur Leukocyte Esterase Urine RBC Urine WBC Ur Squamous Epith Cells Urine Bacteria COVID-19 (RACHEL) COVID-19 [employer] Com 03/28/21 03/28/21 05:35 07:17 MCV MCH MCHC RDW Plt Count MPV Absolute Nucleated RBC Nucleated RBC % (auto) Anion Gap Estim Creat Clear Calc Estimated GFR POC Glucose 146 H Random Glucose Osmolality Calcium Magnesium Total Bilirubin Direct Bilirubin AST ALT Alkaline Phosphatase Total Protein Albumin Triglycerides LDL Cholesterol Direct Lipase 1467 H Urine Color Urine Appearance Urine pH Ur Specific Jamison Urine Protein Urine Glucose (UA) Urine Ketones Urine Blood Urine Nitrite Ur Leukocyte Esterase Urine RBC Urine WBC Ur Squamous Epith Cells Urine Bacteria COVID-19 (RACHEL) COVID-19 Clin [facility] Assessment and Plan (1) Pancreatitis: Status: Acute Assessment and Plan: 61-year-old male with history of hypertension, hyperlipidemia, diabetes, alcohol use disorder who presents to emergency department with abdominal pain found to have acute pancreatitis Acute pancreatitis suspected secondary to EtOH; has gallstones, but no evidence of cbd stones advance diet pain control ivf Cirrhosis / liver lesion by imaging patient not aware will get GI to see him outpatient MRI to better evaluate that lesion Hyponatremia ? beer potomania improved with fluids Elevated LFTs likely r/t etoh use decreased alcohol use disorder no evidence of alcohol withdrawal at this time no h/o alcohol withdrawal -CIWA -vitamin supplementation -check lytes, replace prn DM -hold metformin -SSI HTN BP controlled -continue Norvasc, clonidine HLD -continue statin Gout -hold allopurinol full code dvt pptx, lovenox Quality Stroke Does the patient have a stroke diagnosis?: No VTE Prior VTE?: No VTE Risk Level:: Medical - moderate - high VTE Device Contraindication: Treatment Not Indicated VTE Drug Contraindication: N/A - Med Ordered
[2021-03-28 11:50] LABS: Glucose, Whole Blood 135 mg/dL (60-115)
[2021-03-28 15:56] LABS: Glucose, Whole Blood 127 mg/dL (60-115)
--- NOTE | 2021-03-28 19:03 | P.EN_ITS ---
Event Note Date of Service: 03/28/21 Event Note: GI Consult-Full note dictated-Hx via patient and EMR Imp: Acute pancreatitis, as well as liver disease, most likely in relation to EtOH, although he does have gallstones as well. However, his imaging studies do not show any signs of biliary disease. He is clinically improving. He currently reports that he is pain free and tolerating his diet. His abdominal exam is benign. Rec: Continue supportive care and current diet. F/U labs in AM, including LFT's and lipase. I will order a liver w/u for the AM although this certainly appears to be EtOH-related. I did advise him of the diagnosis of gallstones and liver disease. 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 We discussed that he should have a F/U CT of his abdomen in 4-6 weeks. He can arrange that through his PCP. If he remains abstinent, but has further episodes of pancreatitis, he would then need to see a surgeon re: cholecystectomy. D/W patient in detail and he is comfortable with this plan. Thanks.
[2021-03-28 20:15] LABS: Glucose, Whole Blood 160 mg/dL (60-115)
--- NOTE | 2021-03-28 22:29 | CONS_ITS ---
DATE OF SERVICE: 03/28/2021 REASON FOR CONSULTATION: Abdominal pain, pancreatitis, and elevated LFTs. HISTORY OF PRESENT ILLNESS: This has been obtained from the patient and the medical record. The patient is a 61-year-old male with a long-standing history of chronic alcohol use, who was in his usual state of health up until about a week or so ago. He describes the progressive onset of some back and abdominal pain. The abdominal pain became quite severe in the mid abdomen, prompting his ER visit and subsequent admission. He describes a distant history of pancreatitis when he developed diabetes years ago. However, he has had no recurrent problems from that. Since admission here, he does report that he is feeling much better and today is tolerating his diet without any further abdominal pain. The patient does describe a daily history of beer drinking ranging from just 2 or 3 beers a day to as many as 6 or 8 beers a day. He does not drink any liquor. He denies any history of jaundice. He describes that his brother of cirrhosis in relation to alcohol and drug use. There is no family history of pancreatic disease. He has not noticed any jaundice. During the past week or so, he has not had any vomiting, diarrhea, hematochezia, nor melena. He denies any fevers. Prior to the past week or so, he reports he was eating comfortably and denies any dysphagia nor early satiety. MEDICATIONS: At home included allopurinol, amlodipine, atorvastatin, , clonidine, lisinopril, metformin, vitamins, and eyedrops. His medications here in the hospital include amlodipine, atorvastatin, clonidine, Colace, Lovenox, famotidine, folic acid, lisinopril, morphine, vitamins, Zofran, thiamine, eyedrops. PAST MEDICAL HISTORY: Knee surgery. Diabetes mellitus. Hyperlipidemia. Hypertension. Gout. SOCIAL HISTORY: He is . He is a former smoker. Alcohol as above. FAMILY HISTORY: Noncontributory. REVIEW OF SYSTEMS: CONSTITUTIONAL: Up until the past week or so, he had been feeling well with good energy and good appetite. SKIN: No rash. No pruritus. CARDIAC: No chest pain. PULMONARY: No cough. No hemoptysis. GASTROINTESTINAL: As above. URINARY: No dysuria. No hematuria. PHYSICAL EXAMINATION: GENERAL: The patient is a pleasant, alert, comfortable-appearing male. SKIN: Warm and dry. HEENT: Anicteric sclerae. NECK: Supple without lymphadenopathy. ABDOMEN: Soft, nondistended, nontender without palpable mass. EXTREMITIES: Without edema. LABORATORY DATA: Admitting white count 13.0 with repeat today is 6.4, hemoglobin 14.7 and today's hemoglobin is 13.3. Platelet count 197,000. Sodium 132, potassium 4.7, chloride 100, CO2 of 23, BUN 7, creatinine 0.7. Admitting liver profile showed total bilirubin 0.9, AST 70, ALT 67, alkaline phosphatase 261. The lipase on admission was 3885. Followup labs from today showed a total bilirubin of 0.8, AST 54, ALT 56, alkaline phosphatase 233, and lipase 1467. His CT scan on admission showed hepatomegaly and changes consistent with cirrhosis. There is a probable cyst in the right lobe of the liver. Gallstones, but without any sign of cholecystitis nor biliary disease. There was changes consistent with mild pancreatitis, but no definitive evidence of pancreatic mass. There was no sign of any necrosis nor pancreatic pseudocyst. His ultrasound of the abdomen described liver cysts, gallstones, and no biliary disease. IMPRESSION: Given the patient's clinical history, I suspect we are dealing with acute pancreatitis in relation to chronic alcohol use as opposed to his gallstones. However, given the elevated LFTs and the presence of the gallstones, this does raise the possibility of a biliary source of pancreatitis. Nonetheless, he is presently feeling quite well at the present time and his symptoms have improved, although his lipase did remain elevated today. At this point given his good clinical appearance and benign abdomen, I would continue his current diet and simply repeat his laboratories tomorrow. If he remains pain-free and his laboratories continued to improve, then he should be able to be discharged by tomorrow. I did have a detailed discussion with him today that his pancreatitis was most likely related to alcohol use. Based on that and his liver disease, he needs to remain completely abstinent from alcohol on a long-term basis in hopes of preventing further morbidity and early mortality in the future. Of note, we did review the possibility that his gallstones may have been contributing to the pancreatitis and if indeed he develops further episodes of pancreatitis despite abstinence from alcohol, then I would recommend that he see a surgeon to discuss cholecystectomy. PLAN: At this point, I would recommend a liver workup to exclude other causes of liver disease, although most likely this is in relation to his alcohol use. I have ordered a liver workup for the morning before he gets discharged. I would recommend a followup CAT scan in the next 4 to 6 weeks to reinspect the pancreas to be sure all the inflammation has resolved, and there is no underlying mass, that could be arranged to his primary care physician. I did review all this in detail with him and he is comfortable with this plan. Thank you for the consultation. MD GIANA Menjivar/CROW / [id number]
[2021-03-29 03:20] VITALS: BP 138/86; PULSE 81; RESP 18; TEMP 36.7; O2SAT 94
[2021-03-29] MEDS: Lactated Ringers 1,000 ML 125 ML IVCONT (03:53)
[2021-03-29 07:21] LABS: Ferritin 404 ng/mL (20-250)
[2021-03-29 07:22] LABS: Alanine Aminotransferase 52 U/L (0-40); Albumin Level 3.6 g/dL (3.5-5.0); Alkaline Phosphatase 230 U/L (39-117); Aspartate Amino Transferase 51 U/L (5-37); Bilirubin Direct 0.5 mg/dL (0.0-0.5); Bilirubin Total 0.9 mg/dL (0.0-1.0); Iron 41 mcg/dL (45-160); Lipase 375 U/L (8-78); Total Protein 6.9 g/dL (6.5-8.0)
[2021-03-29 07:47] VITALS: BP 151/65; PULSE 83; RESP 18; TEMP 36.8; O2SAT 93
[2021-03-29 08:02] LABS: Glucose, Whole Blood 149 mg/dL (60-115)
[2021-03-29 08:13] VITALS: BP 151/65; PULSE 83
[2021-03-29] MEDS: lisinopriL 5 MG TABLET PO (08:13)
[2021-03-29] MEDS: cloNIDine HCL 0.1 MG TABLET PO (08:13)
[2021-03-29] MEDS: Thiamine HCL 100 MG TABLET PO (08:13)
[2021-03-29] MEDS: Folic Acid 1 MG TABLET PO (08:13)
[2021-03-29 08:14] VITALS: BP 151/65; PULSE 83
[2021-03-29] MEDS: amLODIPine Besylate 5 MG TABLET PO (08:14)
[2021-03-29] MEDS: Atorvastatin Calcium 10 MG TABLET PO (08:14)
[2021-03-29] MEDS: Multivitamin TABLET 1 TAB PO (08:14)
--- NOTE | 2021-03-29 08:30 | P.DS_ITS ---
DS: Providers Provider Date of Service: 03/29/21 Date of admission: 03/27/21 10:51 Date of discharge: 03/29/21 Primary care physician: Cj Blackburn [facility] Admitting clinician: Luz Maria Vines Attending physician on admission: Igor Henriquez Consults: 03/28/21 10:42 Consult to Gastroenterology Routine Consulting Provider: Ben Duval Reason for consultation: acute pancreatitis, cirrhosis Attending physician on discharge: Ankush Mario Discharging clinician: Chayo Gomez DS: Diagnosis Discharge Diagnosis (1) Pancreatitis: Status: Acute DS: Medications Discharge Medications Home Medications: Home Medications Medication Instructions Recorded Confirmed allopurinol 300 mg tablet 300 mg PO DAILY 12/02/20 03/27/21 B-complex with vitamin C 1 tab PO DAILY 03/27/21 03/27/21 clonidine HCl 0.1 mg tablet 0.1 mg PO DAILY 03/27/21 03/27/21 multivitamin 1 tab PO DAILY 03/27/21 03/27/21 timolol maleate 0.25 % eye gel 1 drp QAM 03/27/21 03/27/21 forming solution Previous Rx's Medication Instructions Recorded lisinopril 5 mg tablet 5 mg PO DAILY #100 tab 09/25/20 metformin 500 mg tablet 500 mg PO BID #60 tab 01/12/21 atorvastatin 10 mg tablet 10 mg PO DAILY #30 tab 02/25/21 amlodipine 5 mg tablet 5 mg PO DAILY #30 tab 03/09/21 DS: Summary Hospital Course Hospital Course: 61-year-old male with history of hypertension, hyperlipidemia, diabetes, alcohol use disorder who presents to emergency department with abdominal pain found to have acute pancreatitis Pancreatitis. Patient has a hx of alcohol abuse. He drinks about 3-4 beers a day however he cut down from 10-12 beers a day from last year. He never really had significant complaints of pain, nausea or vomiting. His lipase peaked at 3885 and came down to 375. His diet was advanced and he did well with that. He was seen and evaluated by GI with rec to have a follow up CT in 4-6 weeks to assess for complete resolution of pancreatic inflammation. He was encouraged to stop drinking alcohol completely. Time Spent with Patient Time attestation: Total time spent providing and/or coordinating discharge services: Discharge coordination time: Greater than 30 minutes Quality: Stroke Does the patient have a stroke diagnosis?: No Physical Exam Vital Signs: Vital Signs: Last Vital Signs Temp 98.3 F 03/29/21 07:47 Pulse 83 03/29/21 08:14 Resp 18 03/29/21 07:47 BP 151/65 H 03/29/21 08:14 Pulse Ox 93 03/29/21 07:47 Body Mass Index 30.9 Appearing in no acute distress head is normocephalic atraumatic eyes pupils are PERRLA sclera is anicteric mouth throat mucous membranes are intact and moist neck is supple no lymphadenopathy, no JVD noted lung sounds are clear to auscultation heart regular rate rhythm, clear S1, S2 positive bowel sounds, abdomen is soft, nontender neuro patient is alert x3, no focal deficits DS: Data Data Completed and Pending Labs on day of discharge: Laboratory Results - last 24 hr 03/28/21 03/28/21 03/28/21 11:15 15:44 20:07 POC Glucose 135 H 127 H 160 H Iron Ferritin Total Bilirubin Direct Bilirubin AST ALT Alkaline Phosphatase Total Protein Albumin Lipase 03/29/21 03/29/21 05:31 07:57 POC Glucose 149 H Iron 41 L Ferritin 404 H Total Bilirubin 0.9 Direct Bilirubin 0.5 AST 51 H ALT 52 H Alkaline Phosphatase 230 H Total Protein 6.9 Albumin 3.6 Lipase 375 H Discharge Plan Discharge Anticipated Discharge Date/Time: 03/29/21 08:27 Patient Disposition: Home, Self-Care Discharge Diagnosis: Pancreatitis alcohol abuse Referrals: Cj Blackburn [facility] [Primary Care Provider] - 1 Week Discharge Medications: Continued lisinopril 5 mg tablet 5 mg PO DAILY Qty: 100 RF: 3 metformin 500 mg tablet 500 mg PO BID Qty: 60 RF: 2 atorvastatin 10 mg tablet 10 mg PO DAILY Qty: 30 RF: 3 amlodipine 5 mg tablet 5 mg PO DAILY Qty: 30 RF: 2 multivitamin Tablet 1 tab PO DAILY RF: 0 B-complex with vitamin C Tablet 1 tab PO DAILY RF: 0 clonidine HCl 0.1 mg tablet 0.1 mg PO DAILY RF: 0 timolol maleate 0.25 % gel forming solution 1 drp QAM RF: 0 allopurinol 300 mg tablet 300 mg PO DAILY RF: 0 Discharge Orders: Discharge Order (Routine); Ordered 03/29/21 Ordered By: Chayo Jason Diet: advance to usual diet Activity on Discharge: As tolerated Stand Alone Forms: Patient Portal Discharge page Care Plan Goals: Complete resolution of pancreatitis. Health Concerns: Pancreatitis Plan of Treatment: Follow up with your primary care provider as needed to arrange a follow up CT scan in 4-6 weeks to assess for complete improvement in inflammation of pancreas. Stop drinking alcohol. Assessment: See dischage summary
--- NOTE | 2021-03-29 08:54 | MHC.CM.PN ---
CM MET WITH PT WHO REPORTS HE LIVES AT HOME WITH HIS AND IS INDEPENDENT WITH ALL CARE AND MOBILITY. PT DENIES USE OF DME OR HOME/COMMUNITY SERVICES. PT REPORTS HE HAS A HCP COMPLETED NAMING HIS , ALIX, HIS AGENT AND HE CONFIRMS HIS PCP IS RANGEL FIGUEROA. PT REPORTS HE WAS TOLD BY THE MD HE WOULD BE DISCHARGED TODAY AND ASKS THAT IT BE EARLY POSSIBLE HE IS CONCERNED ABOUT THE EXPECTED STORM. PTS REQUEST WAS FORWARDED TO PROVIDER. PT WILL DC HOME TODAY WITH NO SERVICES PT WILL SELF ARRANGE TRANSPORT
[2021-03-30 03:28] LABS: HBsAGNum1 0.17 S/CO (0.00-0.99); Hepatitis B Core Antibody Nonreactive (Nonreactive); Hepatitis B Surface Antigen Negative (Negative); ~HepC Num1 0.34 S/CO (0.00-0.79); ~Hepatitis C Antibody Nonreactive (Nonreactive)
[2021-03-30 03:31] LABS: ~Hepatitis B Surface Antibody NONREACTIVE (Nonreactive)
[2021-03-30 12:36] LABS: Alpha Fetoprotein 18.3 ng/mL (<6.1)
[2021-03-30 17:42] LABS: Alpha 1 Anti-trypsin 217 mg/dL (83-199)
[2021-03-30 19:07] LABS: Anti Nuclear Antibody Screen POSITIVE (NEGATIVE)
[2021-03-31 15:57] LABS: Mitochondrial Antibodies NEGATIVE (NEGATIVE)
[2021-04-01 11:48] LABS: Smooth Muscle Antibody <20 U (<20)
[2021-04-01 15:07] LABS: Percent Iron Saturation 20 % (15-50); Total Iron Binding Capacity 209 mcg/dL (228-428); Unsaturated Iron Binding 168 ug/dL
== END 2021-03-29 10:12 | disposition home or self-care (01) | DRG 282 ==
LOC: HO.ED 10:27 → HO.EDOVER 10:59 → HO.IMC 19:19
PROVIDERS: Family Medicine; Internal Medicine; Admitting Provider Physician Assistant Medical; Emergency Provider Internal Medicine; PCP Nurse Practitioner Family; Visit Provider Internal Medicine
DX: K85.20 Alcohol induced acute pancreatitis without necrosis or infection (principal); K70.30 Alcoholic cirrhosis of liver without ascites; I10 Essential (primary) hypertension; E87.1 Hypo-osmolality and hyponatremia; E78.5 Hyperlipidemia, unspecified; M10.9 Gout, unspecified; F11.10 Opioid abuse, uncomplicated; E11.9 Type 2 diabetes mellitus without complications; Z20.822 Contact with and (suspected) exposure to COVID-19; Z79.84 Long term (current) use of oral hypoglycemic drugs; Z79.899 Other long term (current) drug therapy
CPT/HCPCS: 36415; 74176; 76705; 80048; 80076; 81001; 82103; 82105; 82728; 82947; 83540; 83690; 83735; 83930; 84478; 85025; 85027; 86038; 86039; 86255; 86256; 86704; 86706; 86803; 87340; 87635; 93005; 96361; 96374; 96375; 99285; J1650

== ENCOUNTER 2021-04-16 08:14 | Outpatient (REF) | payer BC, SELFPAY ==
--- NOTE | ~2021-04-16 | XR_ITS ---
EXAMINATION: XR CHEST CLINICAL INFORMATION: R06.02 - Shortness of breath COMPARISON: Chest radiographs 11/07/2015, CT abdomen 03/27/2021 TECHNIQUE: Frontal view and 2 lateral projections of the chest are obtained for 3 views. FINDINGS: There is band-like atelectasis at the right posterior medial base with probable trace right effusion. There is fine linear scar versus disc atelectasis left lateral base. There is no pneumothorax and no lobar or segmental airspace consolidation. The vascularity is normal. The heart is normal in size. The hilar and mediastinal contours are normal. No acute bony abnormality. Again, there is some mild loss of height midthoracic vertebral body similar to 2016. XR/XR chest 2V IMPRESSION: 1. Atelectasis right posterior medial base with probable trace right effusion. 2. Fine linear scar versus disc atelectasis left lateral base.
[2021-04-16 11:12] LABS: Basophils Absolute Auto 0.1 X10*3/uL (0.0-0.2); Basophils Percent Auto 0.2 % (0-2); Eosinophils Absolute Auto 0.1 X10*3/uL (0.0-0.4); Eosinophils Percent Auto 0.4 % (0-4); Hemoglobin 13.1 g/dl (14.0-18.0); Imm Gran Abs Auto 1.01 X10*3/uL (0.00-0.03); Imm Gran Pct Auto 4.6 % (0.0-0.4); Lymphocytes Absolute Auto 2.2 X10*3/uL (1.2-4.9); Lymphocytes Percent Auto 9.8 % (20-40); MANUAL DIFF FLAG SCAN; Mean Corpuscular HGB Conc 35.4 g/dl (31.0-36.0); Mean Corpuscular Hemoglobin 32.3 pg (27.0-33.0); Mean Corpuscular Volume 91.4 fL (80-98); Mean Platelet Volume 10.5 fL (9.4-12.4); Monocytes Absolute Auto 1.7 X10*3/uL (0.1-1.2); Monocytes Percent Auto 7.7 % (2-11); Neutrophils Absolute Auto 17.1 X10*3/uL (2.0-8.3); Neutrophils Percent Auto 77.3 % (45-73); Platelet Count 228 X10*3/uL (160-400); Red Blood Count 4.05 X10*6/uL (4.60-5.80); Red Cell Distribution Width 14.7 % (11.0-16.0); SCAN SMEAR FLAG 1; White Blood Count 22.1 X10*3/uL (4.8-10.8)
[2021-04-16 11:34] LABS: SLIDE REVIEW VERIFIED
[2021-04-16 11:52] LABS: Alanine Aminotransferase 69 U/L (0-40); Albumin Level 3.3 g/dL (3.5-5.0); Alkaline Phosphatase 578 U/L (39-117); Anion Gap 16 (12-20); Aspartate Amino Transferase 73 U/L (5-37); Bilirubin Total 4.2 mg/dL (0.0-1.0); Blood Urea Nitrogen 11 mg/dL (9-16); Calcium 9.3 mg/dL (8.4-10.2); Carbon Dioxide 21 mmol/L (22-29); Chloride 94 mmol/L (96-108); Cholesterol 142 mg/dL; Estimated Glomerular Filt Rate > 60; Glucose Fasting 123 mg/dL (60-99); HDL Cholesterol 13 mg/dL; LDL Cholesterol Calculated 105 mg/dl; Lipase 789 U/L (8-78); Potassium 4.5 mmol/L (3.3-5.1); Sodium 126 mmol/L (135-145); Triglycerides 120 mg/dL; Uric Acid 3.4 mg/dL (3.4-7.0)
[2021-04-16 12:01] LABS: Estimated Average Glucose 140 mg/dL; Hemoglobin A1c % 6.5 %
[2021-04-16 12:06] LABS: Prostate Specific Antigen Scr 0.26 ng/mL (<0.05-4.0); TSH reflex Free T4 1.72 uIU/mL (0.32-4.0)
== END 2021-04-16 08:15 | disposition home or self-care (01) ==
LOC: HO.HMGCX 08:14
PROVIDERS: PCP Nurse Practitioner Family; Visit Provider Nurse Practitioner Family
DX: Z00.00 Encounter for general adult medical examination without abnormal findings (principal); K85.90 Acute pancreatitis without necrosis or infection, unspecified; E11.9 Type 2 diabetes mellitus without complications; R06.02 Shortness of breath; Z12.5 Encounter for screening for malignant neoplasm of prostate; Z87.39 Personal history of other diseases of the musculoskeletal system and connective tissue
CPT/HCPCS: 36415; 71046; 80053; 80061; 83036; 83690; 84153; 84443; 84550; 85025

== ENCOUNTER 2021-04-16 17:47 | Inpatient (IN) | payer BC, SELFPAY ==
--- NOTE | ~2021-04-16 | US_ITS ---
EXAMINATION: ULTRASOUND-GUIDED LIVER BIOPSY CLINICAL INFORMATION: Pancreas and liver lesions COMPARISON: Previous CT of the abdomen and pelvis most recent 04/16/2021 and abdominal ultrasound March 2021 TECHNIQUE: Procedure and risks and benefits including bleeding and infection were discussed with the patient and informed consent was obtained. Using ultrasound guidance and a coaxial system, access to a lesion in the left lobe of the liver was obtained. 4 20-gauge core biopsies were obtained. There is no complication. Hemostasis was achieved using Gelfoam pledgets. Patient received Versed 1 mg and fentanyl 50 mcg intravenously during the procedure. Total sedation time was 20 minutes. FINDINGS: There are multiple hypoechoic liver lesions. A 4 x 5 cm hypoechoic lesion in the left lobe of the liver was targeted for biopsy. US/US biopsy liver IMPRESSION: Ultrasound-guided liver biopsy.
--- NOTE | ~2021-04-16 | CT_ITS ---
EXAMINATION: CT CHEST, ABDOMEN AND PELVIS WITHOUT CONTRAST CLINICAL INFORMATION: Abdominal pain. Hyponatremia. COMPARISON: Chest radiograph done earlier the same day. CT abdomen/pelvis dated 03/27/2021. TECHNIQUE: Contiguous axial thin section helical images of the chest, abdomen and pelvis were performed without IV contrast. The data set was reformatted in the coronal and sagittal planes and reviewed on an independent workstation. This CT examination was performed using dose optimization techniques as appropriate, variously including the following: *Automated exposure control *Adjustment of mA and/or kV according to patient size (this includes techniques or standardized protocols for targeted exams where dose is matched to indication/reason for exam; i.e. extremities or head) *Use of iterative reconstruction technique DLP: 1358 mGy-cm FINDINGS: LUNGS: Right lower lobe atelectasis versus infiltrates. Linear atelectasis versus scarring within the left lower lobe. There are innumerable bilateral noncalcified pulmonary nodules, the largest within the right middle lobe measuring 0.8 and 0.5 cm (axial image 285 and 300/501). No large pulmonary mass. The central airways are patent. PLEURA: Small right-sided pleural effusion. No pneumothorax. MEDIASTINUM: No cardiomegaly. No significant pericardial effusion. Mild dilatation of the ascending thoracic aorta measuring up to 4.1 cm. Atherosclerotic calcifications. Prominence of the main pulmonary arteries, which can be seen in the setting of pulmonary hypertension. Mildly prominent superior mediastinal lymph nodes, the largest of which is in the subcarinal region measuring up to 1.2 x 2.3 cm. CHEST WALL/AXILLA: No lymphadenopathy. THYROID: Partially visualized and unremarkable. LIVER, GALLBLADDER, AND BILIARY TREE: The liver is enlarged with slightly nodular contour, which can be seen in the setting of steatosis. There are multiple hypoenhancing hepatic parenchymal lesions, the largest of which is within the right hepatic dome measuring up to 5.2 x 3.8 cm in greatest axial dimension. Findings are concerning for metastatic lesions. The gallbladder is dilated with dependent stones. No evidence of acute cholecystitis. PANCREAS: There is prominence and heterogeneity throughout the pancreatic head, similar when compared to the prior examination. The pancreatic head measures up to 5.1 x 6.3 cm in greatest axial dimension. Mild increase in dilatation of the main pancreatic duct. Hypoenhancing, irregular cystic focus within the uncinate process of the pancreas measuring up to 1.9 x 1.4 cm in greatest axial dimension. Findings are concerning for a pancreatic parenchymal lesion and endoscopic ultrasound or abdominal MRI without and with contrast could help further evaluate. Redemonstration of peripancreatic stranding, increased when compared to the prior examination. SPLEEN: Unremarkable. ADRENAL GLANDS: Redemonstration of a solid left adrenal nodule measuring 1.8 x 2.5 cm and 51.6 Hounsfield units, concerning for a metastatic lesion. KIDNEYS AND URETERS: Redemonstration of a hyperdense left renal upper pole lesion measuring up to 4.6 cm, unchanged. Calcified left anterior midpole renal lesion, unchanged. Stable left lower pole renal hyperdensity, unchanged. Additional bilateral renal hypodensities are unchanged. No renal or ureteral stone. No hydronephrosis or hydroureter. BLADDER: Unremarkable. GASTROINTESTINAL TRACT: Scattered sigmoid diverticulosis without evidence of acute diverticulitis. No bowel wall thickening or associated inflammatory change. No small or large bowel obstruction. The appendix is not seen. PERITONEAL CAVITY: Xplu-bo-rykvbpbd ascites, new when compared to the prior examination. No intra-abdominal free air. No organized fluid collection/abscess formation. ABDOMINAL WALL: No significant abdominal wall hernia. LYMPH NODES: Redemonstration of prominent retroperitoneal and periportal lymph nodes with the largest anterior to the left renal vein measuring 1.1 x 3.3 cm (axial image 31/101). VASCULAR: No abdominal aortic dilatation. Scattered atherosclerotic calcifications. The IVC is unremarkable. PELVIC VISCERA: The prostate and seminal vesicles are unremarkable. OSSEOUS STRUCTURES: No lytic or blastic osseous lesion. CT/CT abdomen pelvis w con IMPRESSION: 1. Small right-sided pleural effusion with bibasilar atelectasis versus infiltrates, increased when compared to the prior examination. Innumerable bilateral pulmonary nodules measuring up to 0.8 cm. Findings are concerning for metastatic disease. 2. Dilatation of the ascending thoracic aorta measuring up to 4.1 cm. Prominence of the main pulmonary arteries, which can be seen in the setting of pulmonary hypertension. 3. Prominence of the pancreatic head with a lobulated cystic focus within the uncinate process. Increasing dilatation of the main pancreatic duct with increasing adjacent inflammatory change. Findings are concerning for a pancreatic neoplastic lesion. Endoscopic ultrasound or abdominal MRI without and with contrast could help further evaluate. 4. Multiple hepatic parenchymal lesions, the largest of which is within the hepatic dome. Findings are concerning for hepatic parenchymal metastases. No intra- or extrahepatic biliary ductal dilatation. 5. Wmgz-vu-okkpcfef abdominal ascites, new when compared to the prior examination. Stable prominent periportal and retroperitoneal lymph nodes, concerning for metastatic disease. 6. Redemonstration of a left adrenal nodule measuring up to 2.5 cm, concerning for a metastatic lesion. 7. Multiple bilateral hyper and hypodense renal parenchymal lesions are unchanged.
--- NOTE | ~2021-04-16 | US_ITS ---
EXAMINATION: ULTRASOUND-GUIDED PARACENTESIS CLINICAL INFORMATION: Ascites COMPARISON: Previous CT of the abdomen and pelvis most recent from yesterday and abdominal ultrasound March 2021 TECHNIQUE: Procedure and risks and benefits including bleeding, infection and low blood pressure were discussed with the patient and informed consent was obtained. The right lower quadrant was prepped and draped in the usual fashion. The skin and soft tissues were anesthetized with 1% lidocaine plain. Using ultrasound guidance and a 5 [place] rapid centesis catheter, access to the ascitic fluid was obtained. 2.2 L of slightly cloudy yellow fluid was removed. Diagnostic specimen was sent. FINDINGS: There is a large amount of ascites. US/US paracentesis abd w/image IMPRESSION: Ultrasound-guided paracentesis.
--- NOTE | ~2021-04-16 | US_ITS ---
EXAMINATION: US ABDOMEN LIMITED Please see combined limited abdominal ultrasound and abdominal Doppler exam report.
--- NOTE | ~2021-04-16 | US_ITS ---
EXAMINATION: LIMITED ABDOMINAL ULTRASOUND WITH DOPPLER CLINICAL INFORMATION: Question of a portal vein thrombus on CT scan. New onset ascites. COMPARISON: Previous abdominal ultrasound 03/27/[address] of the abdomen and pelvis from yesterday TECHNIQUE: Doppler, color and grayscale evaluation of the right upper quadrant. Doppler color and grayscale evaluation including waveform spectral analysis of the liver vessels. Exam is difficult due to patient body habitus and bowel gas. FINDINGS: The liver is heterogeneous in echotexture. There are multiple solid hypoechoic liver lesions seen. There is a 1.8 x 1.7 x 1.4 cm complex cystic lesion in the right lobe. The gallbladder is upper normal in size. There are gallstones. There is mild intrahepatic biliary duct dilatation. Common bile duct is prominent measuring 1.6 cm. The pancreas is not well seen. The right kidney is slightly enlarged measuring 15 cm in length. There are multiple right renal cysts. No significant ascites is seen post paracentesis. Abdominal Doppler exam: Exam is technically difficult due to patient body habitus and bowel gas. The IVC is patent and demonstrates normal waveform. The hepatic veins are patent and demonstrate normal waveforms. The extrahepatic portal vein, main, right and left portal veins appear occluded. The splenic vein is difficult to evaluate. The hepatic artery is patent. Main hepatic artery peak systolic velocity is normal measuring 92 cm/s. US/US duplex arterial venous comp IMPRESSION: Technically difficult exam but portal veins appear occluded. Question mild intrahepatic biliary duct dilatation. Dilated common bile duct measuring 1.6 cm. Gallstones. Multiple solid hypoechoic liver lesions worrisome for neoplasm. Enlarged right kidney. Nonvisualization of the pancreas.
[2021-04-16 18:10] VITALS: BP 109/76; PULSE 100; RESP 16; TEMP 36.9; O2SAT 96; BMI 30.9
--- NOTE | 2021-04-16 20:31 | ED.GENADULT ---
HPI - General Adult General Chief complaint: Recheck/Abnormal Lab/Rx Stated complaint: abnormal labs Source: patient Mode of arrival: ambulatory Limitations: no limitations History of Present Illness HPI narrative: 61-year-old male presents with abnormal lab levels. He was called by his primary care physician to present to the emergency department for elevated white count, and labs consistent with pancreatitis. He was admitted the end of March and discharged on 03/29. Onset (ago): week(s) Severity: moderate Treatments prior to arrival: none Related Data Home Medications Medication Instructions Recorded Confirmed allopurinol 300 mg tablet 300 mg PO DAILY 12/02/20 04/16/21 B-complex with vitamin C 1 tab PO DAILY 03/27/21 04/16/21 multivitamin 1 tab PO DAILY 03/27/21 04/16/21 timolol maleate 0.25 % eye gel 1 drp QAM 03/27/21 04/16/21 forming solution Previous Rx's Medication Instructions Recorded lisinopril 5 mg tablet 5 mg PO DAILY #100 tab 09/25/20 metformin 500 mg tablet 500 mg PO BID #60 tab 01/12/21 atorvastatin 10 mg tablet 10 mg PO DAILY #30 tab 02/25/21 amlodipine 5 mg tablet 5 mg PO DAILY #30 tab 03/09/21 clonidine HCl 0.1 mg tablet 0.1 mg PO DAILY 90 Days #90 tab 04/06/21 Allergies Allergy/AdvReac Type Severity Reaction Status Date / Time No Known Allergies Allergy Verified 04/15/21 17:57 [No Known Allergies*] Review of Systems Review of Systems: Constitutional: No Fever, No Chills ENT/Mouth: No Ear Pain, No Hoarseness, No sore throat Eyes: No Eye Pain, No Swelling, No Redness, No Foreign Body Cardiovascular: No Chest Pain, No SOB Respiratory: No Cough, No Dyspnea Gastrointestinal: No Nausea, No Vomiting, No Diarrhea, No abdominal Pain Genitourinary: No Dysuria, No Hematuria Musculoskeletal: No joint pain, No Myalgias, No Joint Swelling Skin: Positive jaundice, No Skin lacerations, No rash Neuro: No Weakness, No Numbness, No Paresthesias, No Loss of Consciousness, No Dizziness, No Headache Psych: No Anxiety/Panic, No Depression Heme/Lymph: no easy bruising, no Lymphadenopathy Endocrine: No Polyuria, No Polydipsia Yes all other systems are reviewed and are negative PMFSH Past Medical History Attestation statement: The following information was validated with the patient. Source: old records reviewed Medical History Diabetes ETOH abuse HTN (hypertension) Hx of gout Hyperlipidemia Tobacco use Surgical History H/O left knee surgery Family History Family History Father Lung cancer Mother Diabetes Social History Social History Household Members: Spouse Housing: House Alcohol intake: current Alcohol intake frequency: a few times a week Patient Tobacco Use Status: Former Tobacco user Years Smoked: 2.5 years ago e-Cigarette/Vaping Use: Never Used Second Hand Smoke Exposure: No Use of substances other than those prescribed or required for medical reasons: No Advance Directives: No Advance Directives Information Provided: No service: No Current occupational status: employed and retired Physical Exam Vital Signs: Vital Signs: Last Vital Signs Temp 98.7 F 04/16/21 22:11 Pulse 87 04/17/21 00:08 Resp 18 04/17/21 00:08 BP 135/74 04/17/21 00:08 Pulse Ox 96 04/17/21 00:08 Body Mass Index 30.9 Appearance: Alert. Oriented X3. No acute distress. Eyes: Pupils equal, round and reactive to light. Sclera mildly icteric. ENT: Pharynx normal. Moist mucous membranes. Neck: Normal inspection. Neck supple. CVS: Normal heart rate and rhythm. Pulses normal. Respiratory: No respiratory distress. Breath sounds normal. Abdomen: Soft and diffusely tender. Distended. Skin: Skin warm and dry. Normal skin color. Normal skin turgor. Extremities: No lower extremity edema. Gait well balanced well coordinated. Neuro: No motor deficit. No sensory deficit. Cranial nerves 2-12 intact. Course Course Course Narrative: 8: 20 p.m. fluid resuscitation for sepsis protocol initiated. Patient has been waiting in the waiting room for approximately 4 hours. Patient does fit sepsis protocol, patient's lab levels do indicate pancreatitis. CT scan is suggestive of metastatic cancer. CT scan of abdomen and pelvis indicates pancreatic cancer, highly suggestive of metastatic to lungs and liver. Discussion with hospitalist, patient admitted. Consultations Consultation #1: Ritchie Time: 22:00 Medical Decision Making Differential Diagnosis Differential Diagnosis: Pancreatitis, sepsis Medical Records Medical records reviewed: Yes I reviewed the patient's medical records. Lab Data Lab results reviewed: Yes I reviewed the patient's lab results. Result diagrams: 04/16/21 20:33 04/16/21 20:33 Labs: Lab Results 04/16/21 04/16/21 04/16/21 Range/Units 20:33 20:33 20:56 WBC 18.4 H (4.8-10.8) X10*3/uL RBC 3.79 L (4.60-5.80) X10*6/uL Hgb 12.3 L (14.0-18.0) g/dl Hct 34.5 L (42-52) % MCV 91.0 (80-98) fL MCH 32.5 (27.0-33.0) pg MCHC 35.7 (31.0-36.0) g/dl RDW 14.4 (11.0-16.0) % Plt Count 185 (160-400) X10*3/uL MPV 10.6 (9.4-12.4) fL Immature Gran % (Auto) 3.2 H (0.0-0.4) % Neut % (Auto) 81.0 H (45-73) % Lymph % (Auto) 7.6 L (20-40) % Crane % (Auto) 7.6 (2-11) % Eos % (Auto) 0.4 (0-4) % Baso % (Auto) 0.2 (0-2) % Lymph # (Auto) 1.4 (1.2-4.9) X10*3/uL Crane # (Auto) 1.4 H (0.1-1.2) X10*3/uL Eos # (Auto) 0.1 (0.0-0.4) X10*3/uL Baso # (Auto) 0.0 (0.0-0.2) X10*3/uL Abs Immat Gran (auto) 0.59 H (0.00-0.03) X10*3/uL Absolute Neuts (auto) 14.9 H (2.0-8.3) X10*3/uL Absolute Nucleated RBC 0.000 (0.0-0.012) X10*3/uL Nucleated RBC % (auto) 0.0 (0.0-0.2) /100WBC PT (9.9-13.0) SEC INR (0.9-1.1) APTT (24.1-38.0) SEC Sodium 124 L (135-145) mmol/L Potassium 4.9 (3.3-5.1) mmol/L Chloride 95 L (96-108) mmol/L Carbon Dioxide 20 L (22-29) mmol/L Anion Gap 14 (12-20) BUN 14 (9-16) mg/dL Creatinine 0.64 (0.5-1.4) mg/dL Estim Creat Clear Calc 166.1 Estimated GFR > 60 Random Glucose 136 H (60-115) mg/dL Lactic Acid 2.7 H* (0.5-2.0) mmol/L Lactic Acid Fup @ 2Hr (0.5-2.0) mmol/L Calcium 9.2 (8.4-10.2) mg/dL Total Bilirubin 3.3 H (0.0-1.0) mg/dL AST 71 H (5-37) U/L ALT 62 H (0-40) U/L Alkaline Phosphatase 531 H (39-117) U/L B-Natriuretic Peptide (<100) pg/mL Total Protein 6.8 (6.5-8.0) g/dL Albumin 3.1 L (3.5-5.0) g/dL Lipase (8-78) U/L Coronavirus (PCR) (Negative) Influenza Type A (PCR) (Negative) Influenza Type B (PCR) (Negative) RSV RNA Qual (PCR) (Negative) 04/16/21 04/16/21 04/16/21 Range/Units 20:57 20:57 20:57 WBC (4.8-10.8) X10*3/uL RBC (4.60-5.80) X10*6/uL Hgb (14.0-18.0) g/dl Hct (42-52) % MCV (80-98) fL MCH (27.0-33.0) pg MCHC (31.0-36.0) g/dl RDW (11.0-16.0) % Plt Count (160-400) X10*3/uL MPV (9.4-12.4) fL Immature Gran % (Auto) (0.0-0.4) % Neut % (Auto) (45-73) % Lymph % (Auto) (20-40) % Crane % (Auto) (2-11) % Eos % (Auto) (0-4) % Baso % (Auto) (0-2) % Lymph # (Auto) (1.2-4.9) X10*3/uL Crane # (Auto) (0.1-1.2) X10*3/uL Eos # (Auto) (0.0-0.4) X10*3/uL Baso # (Auto) (0.0-0.2) X10*3/uL Abs Immat Gran (auto) (0.00-0.03) X10*3/uL Absolute Neuts (auto) (2.0-8.3) X10*3/uL Absolute Nucleated RBC (0.0-0.012) X10*3/uL Nucleated RBC % (auto) (0.0-0.2) /100WBC PT 18.4 H (9.9-13.0) SEC INR 1.6 H (0.9-1.1) APTT 33.9 (24.1-38.0) SEC Sodium (135-145) mmol/L Potassium (3.3-5.1) mmol/L Chloride (96-108) mmol/L Carbon Dioxide (22-29) mmol/L Anion Gap (12-20) BUN (9-16) mg/dL Creatinine (0.5-1.4) mg/dL Estim Creat Clear Calc Estimated GFR Random Glucose (60-115) mg/dL Lactic Acid (0.5-2.0) mmol/L Lactic Acid Fup @ 2Hr (0.5-2.0) mmol/L Calcium (8.4-10.2) mg/dL Total Bilirubin (0.0-1.0) mg/dL AST (5-37) U/L ALT (0-40) U/L Alkaline Phosphatase (39-117) U/L B-Natriuretic Peptide 39 (<100) pg/mL Total Protein (6.5-8.0) g/dL Albumin (3.5-5.0) g/dL Lipase (8-78) U/L Coronavirus (PCR) NEGATIVE (Negative) Influenza Type A (PCR) NEGATIVE (Negative) Influenza Type B (PCR) NEGATIVE (Negative) RSV RNA Qual (PCR) NEGATIVE (Negative) 04/16/21 04/16/21 Range/Units 20:57 23:17 WBC (4.8-10.8) X10*3/uL RBC (4.60-5.80) X10*6/uL Hgb (14.0-18.0) g/dl Hct (42-52) % MCV (80-98) fL MCH (27.0-33.0) pg MCHC (31.0-36.0) g/dl RDW (11.0-16.0) % Plt Count (160-400) X10*3/uL MPV (9.4-12.4) fL Immature Gran % (Auto) (0.0-0.4) % Neut % (Auto) (45-73) % Lymph % (Auto) (20-40) % Crane % (Auto) (2-11) % Eos % (Auto) (0-4) % Baso % (Auto) (0-2) % Lymph # (Auto) (1.2-4.9) X10*3/uL Crane # (Auto) (0.1-1.2) X10*3/uL Eos # (Auto) (0.0-0.4) X10*3/uL Baso # (Auto) (0.0-0.2) X10*3/uL Abs Immat Gran (auto) (0.00-0.03) X10*3/uL Absolute Neuts (auto) (2.0-8.3) X10*3/uL Absolute Nucleated RBC (0.0-0.012) X10*3/uL Nucleated RBC % (auto) (0.0-0.2) /100WBC PT (9.9-13.0) SEC INR (0.9-1.1) APTT (24.1-38.0) SEC Sodium (135-145) mmol/L Potassium (3.3-5.1) mmol/L Chloride (96-108) mmol/L Carbon Dioxide (22-29) mmol/L Anion Gap (12-20) BUN (9-16) mg/dL Creatinine (0.5-1.4) mg/dL Estim Creat Clear Calc Estimated GFR Random Glucose (60-115) mg/dL Lactic Acid (0.5-2.0) mmol/L Lactic Acid Fup @ 2Hr 1.8 (0.5-2.0) mmol/L Calcium (8.4-10.2) mg/dL Total Bilirubin (0.0-1.0) mg/dL AST (5-37) U/L ALT (0-40) U/L Alkaline Phosphatase (39-117) U/L B-Natriuretic Peptide (<100) pg/mL Total Protein (6.5-8.0) g/dL Albumin (3.5-5.0) g/dL Lipase 394 H (8-78) U/L Coronavirus (PCR) (Negative) Influenza Type A (PCR) (Negative) Influenza Type B (PCR) (Negative) RSV RNA Qual (PCR) (Negative) Imaging Data CT abdomen chest pelvis: Attestation: I personally reviewed and interpreted this imaging study as follows: Radiologist's impression: EXAMINATION: CT CHEST, ABDOMEN AND PELVIS WITHOUT CONTRAST CLINICAL INFORMATION: Abdominal pain. Hyponatremia. COMPARISON: Chest radiograph done earlier the same day. CT abdomen/pelvis dated 03/27/2021. TECHNIQUE: Contiguous axial thin section helical images of the chest, abdomen and pelvis were performed without IV contrast. The data set was reformatted in the coronal and sagittal planes and reviewed on an independent workstation. This CT examination was performed using dose optimization techniques as appropriate, variously including the following: *Automated exposure control *Adjustment of mA and/or kV according to patient size (this includes techniques or standardized protocols for targeted exams where dose is matched to indication/reason for exam; i.e. extremities or head) *Use of iterative reconstruction technique DLP: 1358 mGy-cm FINDINGS: LUNGS: Right lower lobe atelectasis versus infiltrates. Linear atelectasis versus scarring within the left lower lobe. There are innumerable bilateral noncalcified pulmonary nodules, the largest within the right middle lobe measuring 0.8 and 0.5 cm (axial image 285 and 300/501). No large pulmonary mass. The central airways are patent. PLEURA: Small right-sided pleural effusion. No pneumothorax. MEDIASTINUM: No cardiomegaly. No significant pericardial effusion. Mild dilatation of the ascending thoracic aorta measuring up to 4.1 cm. Atherosclerotic calcifications. Prominence of the main pulmonary arteries, which can be seen in the setting of pulmonary hypertension. Mildly prominent superior mediastinal lymph nodes, the largest of which is in the subcarinal region measuring up to 1.2 x 2.3 cm. CHEST WALL/AXILLA: No lymphadenopathy.? THYROID: Partially visualized and unremarkable. LIVER, GALLBLADDER, AND BILIARY TREE: The liver is enlarged with slightly nodular contour, which can be seen in the setting of steatosis. There are multiple hypoenhancing hepatic parenchymal lesions, the largest of which is within the right hepatic dome measuring up to 5.2 x 3.8 cm in greatest axial dimension. Findings are concerning for metastatic lesions. The gallbladder is dilated with dependent stones. No evidence of acute cholecystitis.? PANCREAS: There is prominence and heterogeneity throughout the pancreatic head, similar when compared to the prior examination. The pancreatic head measures up to 5.1 x 6.3 cm in greatest axial dimension. Mild increase in dilatation of the main pancreatic duct. Hypoenhancing, irregular cystic focus within the uncinate process of the pancreas measuring up to 1.9 x 1.4 cm in greatest axial dimension. Findings are concerning for a pancreatic parenchymal lesion and endoscopic ultrasound or abdominal MRI without and with contrast could help further evaluate. Redemonstration of peripancreatic stranding, increased when compared to the prior examination.? SPLEEN: Unremarkable.? ADRENAL GLANDS: Redemonstration of a solid left adrenal nodule measuring 1.8 x 2.5 cm and 51.6 Hounsfield units, concerning for a metastatic lesion.? KIDNEYS AND URETERS: Redemonstration of a hyperdense left renal upper pole lesion measuring up to 4.6 cm, unchanged. Calcified left anterior midpole renal lesion, unchanged. Stable left lower pole renal hyperdensity, unchanged. Additional bilateral renal hypodensities are unchanged. No renal or ureteral stone. No hydronephrosis or hydroureter.? BLADDER: Unremarkable.? GASTROINTESTINAL TRACT: Scattered sigmoid diverticulosis without evidence of acute diverticulitis. No bowel wall thickening or associated inflammatory change. No small or large bowel obstruction. The appendix is not seen. PERITONEAL CAVITY: [id number] ascites, new when compared to the prior examination. No intra-abdominal free air. No organized fluid collection/abscess formation. ABDOMINAL WALL: No significant abdominal wall hernia.? LYMPH NODES: Redemonstration of prominent retroperitoneal and periportal lymph nodes with the largest anterior to the left renal vein measuring 1.1 x 3.3 cm (axial image 31/101). VASCULAR: No abdominal aortic dilatation. Scattered atherosclerotic calcifications. The IVC is unremarkable. PELVIC VISCERA: The prostate and seminal vesicles are unremarkable. OSSEOUS STRUCTURES: No lytic or blastic osseous lesion. CT/CT chest wo con IMPRESSION: 1. Small right-sided pleural effusion with bibasilar atelectasis versus infiltrates, increased when compared to the prior examination. Innumerable bilateral pulmonary nodules measuring up to 0.8 cm. Findings are concerning for metastatic disease. ? 2. Dilatation of the ascending thoracic aorta measuring up to 4.1 cm. Prominence of the main pulmonary arteries, which can be seen in the setting of pulmonary hypertension. ? 3. Prominence of the pancreatic head with a lobulated cystic focus within the uncinate process. Increasing dilatation of the main pancreatic duct with increasing adjacent inflammatory change. Findings are concerning for a pancreatic neoplastic lesion. Endoscopic ultrasound or abdominal MRI without and with contrast could help further evaluate. ? 4. Multiple hepatic parenchymal lesions, the largest of which is within the hepatic dome. Findings are concerning for hepatic parenchymal metastases. No intra- or extrahepatic biliary ductal dilatation. ? 5. [id number] abdominal ascites, new when compared to the prior examination. Stable prominent periportal and retroperitoneal lymph nodes, concerning for metastatic disease. ? 6. Redemonstration of a left adrenal nodule measuring up to 2.5 cm, concerning for a metastatic lesion. ? 7. Multiple bilateral hyper and hypodense renal parenchymal lesions are unchanged. Critical Care Time Critical Care Time Critical Care Time: Yes Total Critical Care Time: 65 Attestation: I have personally provided critical care time exclusive of time spent on separately billable procedures. Time includes review of laboratory data, radiology results, discussion with consultants, and monitoring for potential decompensation. Interventions were performed as documented. Discharge Plan Discharge Clinical Impression: Pancreatitis Qualifiers: Chronicity: acute Pancreatitis type: unspecified pancreatitis type Acute pancreatitis complication: unspecified Qualified Code(s): K85.90 - Acute pancreatitis without necrosis or infection, unspecified Pancreatic cancer Qualifiers: Pancreatic malignancy location: unspecified Qualified Code(s): C25.9 - Malignant neoplasm of pancreas, unspecified Patient Disposition: Admitted As Inpatient
[2021-04-16 20:41] LABS: MANUAL DIFF FLAG NO
[2021-04-16 20:44] LABS: Basophils Percent Auto 0.2 % (0-2); Eosinophils Absolute Auto 0.1 X10*3/uL (0.0-0.4); Eosinophils Percent Auto 0.4 % (0-4); Hematocrit 34.5 % (42-52); Hemoglobin 12.3 g/dl (14.0-18.0); Imm Gran Abs Auto 0.59 X10*3/uL (0.00-0.03); Imm Gran Pct Auto 3.2 % (0.0-0.4); Lymphocytes Absolute Auto 1.4 X10*3/uL (1.2-4.9); Lymphocytes Percent Auto 7.6 % (20-40); Mean Corpuscular HGB Conc 35.7 g/dl (31.0-36.0); Mean Corpuscular Hemoglobin 32.5 pg (27.0-33.0); Mean Platelet Volume 10.6 fL (9.4-12.4); Monocytes Absolute Auto 1.4 X10*3/uL (0.1-1.2); Monocytes Percent Auto 7.6 % (2-11); Neutrophils Absolute Auto 14.9 X10*3/uL (2.0-8.3); Platelet Count 185 X10*3/uL (160-400); Red Blood Count 3.79 X10*6/uL (4.60-5.80); Red Cell Distribution Width 14.4 % (11.0-16.0); White Blood Count 18.4 X10*3/uL (4.8-10.8)
[2021-04-16 21:09] LABS: Alanine Aminotransferase 62 U/L (0-40); Albumin Level 3.1 g/dL (3.5-5.0); Alkaline Phosphatase 531 U/L (39-117); Anion Gap 14 (12-20); Aspartate Amino Transferase 71 U/L (5-37); Bilirubin Total 3.3 mg/dL (0.0-1.0); Blood Urea Nitrogen 14 mg/dL (9-16); Calcium 9.2 mg/dL (8.4-10.2); Carbon Dioxide 20 mmol/L (22-29); Chloride 95 mmol/L (96-108); Creatinine Clr Calc Pharmacy 166.1; Estimated Glomerular Filt Rate > 60; Glucose Random 136 mg/dL (60-115); Potassium 4.9 mmol/L (3.3-5.1); Sodium 124 mmol/L (135-145); Total Protein 6.8 g/dL (6.5-8.0)
[2021-04-16] MEDS: cefTRIAXone sodium 1 GM in 0.9 % Sodium Chloride 100 ML IV (21:09)
[2021-04-16 21:12] LABS: INTERNATIONAL NORM RATIO 1.6 (0.9-1.1); Prothrombin Time 18.4 SEC (9.9-13.0)
[2021-04-16 21:15] LABS: Partial Thromboplastin Time 33.9 SEC (24.1-38.0)
[2021-04-16 21:19] LABS: Lactic Acid 2.7 mmol/L (0.5-2.0)
[2021-04-16 21:19] LABS: Lipase 394 U/L (8-78)
[2021-04-16 21:25] LABS: B Type Natriuretic Peptide 39 pg/mL (<100)
[2021-04-16] MEDS: iohexoL 350 MG/ML 100 ML INFUS..BTL IV (22:09)
[2021-04-16 22:11] VITALS: BP 133/75; PULSE 91; RESP 18; TEMP 37.1; O2SAT 97
--- NOTE | 2021-04-16 22:17 | PC.NURSE ---
Pt a&o, pt denies any chest pain. pt does report sob with ambulation. Labs sent, Iv placed. Medicated per Oct. Pt changed into hospital attire. Pt is on the monitored. Will continue to monitor . Provider is aware of abnormal labs.
[2021-04-16 22:51] VITALS: BP 118/72; PULSE 89; RESP 16; O2SAT 95
[2021-04-16 23:04] LABS: Reflex Lactate? Lactic Acid Added
[2021-04-16 23:20] LABS: Influenza A PCR NEGATIVE (Negative); Influenza B PCR NEGATIVE (Negative); Resp Syncy Virus RNA Qual PCR NEGATIVE (Negative); SARS COV2 PCR INHOUSE NEGATIVE (Negative)
[2021-04-16 23:32] LABS: ~Lactic Acid-LAB USE ONLY 1.8 mmol/L (0.5-2.0)
--- NOTE | 2021-04-16 23:58 | P.HPHOSP_ITS ---
History of Present Illness Date of Service: 04/16/21 Chief Complaint: abnormal labs Of hypertension, hyperlipidemia, diabetes, alcohol use disorder who presents to the emergency department with who findings of abnormal labs. Patient was discharged from the hospital on 03/27 after being treated for acute pancreatitis secondary to alcohol use. Patient at that time was treated for acute pancreatitis and sent home after resolution of symptoms and oral intake. He had a follow-up with his PCP today did outpatient blood work which showed multiple abnormalities including elevated lipase and sodium of 126, therefore patient was sent to the hospital for further evaluation. Patient himself denies any abdominal pain at this time, no nausea, no vomiting, no diarrhea or constipation, no urinary symptoms. He denies any chest pain, but reports mild dyspnea on exertion that has been chronic. Denies any lower extr emity edema and no cough or sputum production. He has no headache or change in vision. Reports that he has not drink alcohol since his admission in March. He reports that he is doing well and is feeling well. No significant abnormal vitals with a temp of 98.4?, heart rate of 111, blood pressure 108/72, satting 97% on room air Labs are significant for 22.1 this a.m. which improved to 18.4, hemoglobin of 12.3, PT of 18.4, INR of 1.6, sodium of 124, potassium 4.9, glucose of 136, lactic acid of 2.7 that improved after fluids to 1.8, total bili of 3.3, AST of 71, ALT of 62, alk-phos of 531, lipase of 789 this a.m. which improved to 394 by ED admission. COVID-[address] and chest and chest showed multiple allergies including right-sided pleural effusion with bibasilar atelectasis versus infiltrate, increased when compared to previous study, bilateral pulmonary nodules measuring up to 0.8 cm concerning for metastatic disease, prominence of the pancreatic head with a lobu lated cystic focus within the uncinate process and increased dilatation of the main pancreatic duct with increased adjacent inflammatory change suggesting pancreatic neoplastic lesion. Multiple hepatic parenchymal lesions concerning for metastasis. Mild to moderate abdominal ascites, prominent periportal and retroperitoneal lymph nodes concerning for metastatic disease, left adrenal nodule measuring 2.5 cm concerning for metastatic disease. Review of Systems Review of Systems: Yes all other systems are reviewed and are negative [facility] Medical History Diabetes ETOH abuse HTN (hypertension) Hx of gout Hyperlipidemia Tobacco use Family History Father Lung cancer Mother Diabetes Surgical History H/O left knee surgery Social History Household Members: Spouse Housing: House Do you presently have visiting nurse or other home services: No Alcohol intake: current Alcohol intake frequency: a few times a week Patient Tobacco Use Status: Former Tobacco user Years Smoked: 2.5 years ago e-Cigarette/Vaping Use: Never Used Second Hand Smoke Exposure: No Use of substances other than those prescribed or required for medical reasons: Yes Have you been hit, kicked, punched, or otherwise hurt by someone within the past year? If so, by whom?: No Do you feel safe in your current relationship?: Yes Is there a partner from a previous relationship who is making you feel unsafe now?: No Are you made to feel afraid or neglected: No Advance Directives: No Advance Directives Information Provided: No Do you have thoughts of harming others: None Do you have a plan to hurt others: No Plan Recently lost weight without trying: No Eating poorly because of decreased appetite: Yes Nutrition Risks: No Nutritional Risk service: No Current occupational status: employed and retired Meds Allergies Allergy/AdvReac Type Severity Reaction Status Date / Time No Known Allergies Allergy Verified 04/15/21 17:57 [No Known Allergies*] Active Medications: Current Medications Generic Name Dose Route Start Last Admin Trade Name Batool PRN Reason Stop Dose Admin Pharmacy Consult 1 each 04/16/21 21:25 Consult Rx Perform Med Rec MISCELLANE ONCE PRN Consult order Home Medications Medication Instructions Recorded Confirmed Last Taken Type allopurinol 300 mg tablet 300 mg PO DAILY 12/02/20 04/16/21 04/16/21 History B-complex with vitamin C 1 tab PO DAILY 03/27/21 04/16/21 04/16/21 History multivitamin 1 tab PO DAILY 03/27/21 04/16/21 04/16/21 History timolol maleate 0.25 % eye gel 1 drp QAM 03/27/21 04/16/21 04/16/21 History forming solution Physical Exam Vital Signs and Narrative: Vital Signs: Last Vital Signs Temp 98.7 F 04/16/21 22:11 Pulse 89 04/16/21 22:51 Resp 16 04/16/21 22:51 BP 118/72 04/16/21 22:51 Pulse Ox 95 04/16/21 22:51 Body Mass Index 30.9 Const: General: cooperative and no acute distress Orientation/consciousne ss: patient oriented x3 Eyes: General: appearance normal, both eyes and all related structures Pupils: Equal, round and reactive pupils present Resp: Effort & Inspection: normal respiratory effort Auscultation: clear to auscultation bilaterally Cardio: Rate: regular rate Rhythm: regular rhythm GI: Other: No abdominal tenderness, rebound or guarding Palpation (GI): Soft to palpation Auscultation: normal bowel sounds Skin: General skin exam: no rashes or lesions noted Neuro: General: patient oriented x3 Cranial nerves: Yes Equal, round and reactive pupils present Cognition (Neuro): normal cognition Extrem: General: Yes normal to inspection and Yes no pedal edema Results Labs CBC and Chem 7: 04/17/21 05:20 04/16/21 20:33 Labs: Laboratory Results - last 24 hr 04/16/21 04/16/21 04/16/21 20:33 20:33 20:56 MCV 91.0 MCH 32.5 MCHC 35.7 RDW 14.4 Plt Count 185 MPV 10.6 Immature Gran % (Auto) 3.2 H Neut % (Auto) 81.0 H Lymph % (Auto) 7.6 L [place] % (Auto) 7.6 Eos % (Auto) 0.4 Baso % (Auto) 0.2 Lymph # (Auto) 1.4 [place] # (Auto) 1.4 H Eos # (Auto) 0.1 Baso # (Auto) 0.0 Abs Immat Gran (auto) 0.59 H Absolute Neuts (auto) 14.9 H Absolute Nucleated RBC 0.000 Nucleated RBC % (auto) 0.0 PT INR APTT Anion Gap 14 Estim Creat Clear Calc 166.1 Estimated GFR > 60 Random Glucose 136 H Lactic Acid 2.7 H* Lactic Acid Fup @ 2Hr Calcium 9.2 Total Bilirubin 3.3 H AST 71 H ALT 62 H Alkaline Phosphatase 531 H B-Natriuretic Peptide Total Protein 6.8 Albumin 3.1 L Lipase Coronavirus (PCR) Influenza Type A (PCR) Influenza Type B (PCR) RSV RNA Qual (PCR) 04/16/21 04/16/21 04/16/21 20:57 20:57 20:57 MCV MCH MCHC RDW Plt Count MPV Immature Gran % (Auto) Neut % (Auto) Lymph % (Auto) [place] % (Auto) Eos % (Auto) Baso % (Auto) Lymph # (Auto) [place] # (Auto) Eos # (Auto) Baso # (Auto) Abs Immat Gran (auto) Absolute Neuts (auto) Absolute Nucleated RBC Nucleated RBC % (auto) PT 18.4 H INR 1.6 H APTT 33.9 Anion Gap Estim Creat Clear Calc Estimated GFR Random Glucose Lactic Acid Lactic Acid Fup @ 2Hr Calcium Total Bilirubin AST ALT Alkaline Phosphatase B-Natriuretic Peptide 39 Total Protein Albumin Lipase Coronavirus (PCR) NEGATIVE Influenza Type A (PCR) NEGATIVE Influenza Type B (PCR) NEGATIVE RSV RNA Qual (PCR) NEGATIVE 04/16/21 04/16/21 20:57 23:17 MCV MCH MCHC RDW Plt Count MPV Immature Gran % (Auto) Neut % (Auto) Lymph % (Auto) [place] % (Auto) Eos % (Auto) Baso % (Auto) Lymph # (Auto) [place] # (Auto) Eos # (Auto) Baso # (Auto) Abs Immat Gran (auto) Absolute Neuts (auto) Absolute Nucleated RBC Nucleated RBC % (auto) PT INR APTT Anion Gap Estim Creat Clear Calc Estimated GFR Random Glucose Lactic Acid Lactic Acid Fup @ 2Hr 1.8 Calcium Total Bilirubin AST ALT Alkaline Phosphatase B-Natriuretic Peptide Total Protein Albumin Lipase 394 H Coronavirus (PCR) Influenza Type A (PCR) Influenza Type B (PCR) RSV RNA Qual (PCR) Imaging Radiologist's Impressions: Impressions Abdomen/Pelvis CT 04/16/21 20:17 IMPRESSION: 1. Small right-sided pleural effusion with bibasilar atelectasis versus infiltrates, increased when compared to the prior examination. Innumerable bilateral pulmonary nodules measuring up to 0.8 cm. Findings are concerning for metastatic disease. 2. Dilatation of the ascending thoracic aorta measuring up to 4.1 cm. Prominence of the main pulmonary arteries, which can be seen in the setting of pulmonary hypertension. 3. Prominence of the pancreatic head with a lobulated cystic focus within the uncinate process. Increasing dilatation of the main pancreatic duct with increasing adjacent inflammatory change. Findings are concerning for a pancreatic neoplastic lesion. Endoscopic ultrasound or abdominal MRI without and with contrast could help further evaluate. 4. Multiple hepatic parenchymal lesions, the largest of which is within the hepatic dome. Findings are concerning for hepatic parenchymal metastases. No intra- or extrahepatic biliary ductal dilatation. 5. Hwxb-my-zaknstrc abdominal ascites, new when compared to the prior examination. Stable prominent periportal and retroperitoneal lymph nodes, concerning for metastatic disease. 6. Redemonstration of a left adrenal nodule measuring up to 2.5 cm, concerning for a metastatic lesion. 7. Multiple bilateral hyper and hypodense renal parenchymal lesions are unchanged. Chest CT 04/16/21 20:17 IMPRESSION: 1. Small right-sided pleural effusion with bibasilar atelectasis versus infiltrates, increased when compared to the prior examination. Innumerable bilateral pulmonary nodules measuring up to 0.8 cm. Findings are concerning for metastatic disease. 2. Dilatation of the ascending thoracic aorta measuring up to 4.1 cm. Prominence of the main pulmonary arteries, which can be seen in the setting of pulmonary hypertension. 3. Prominence of the pancreatic head with a lobulated cystic focus within the uncinate process. Increasing dilatation of the main pancreatic duct with increasing adjacent inflammatory change. Findings are concerning for a pancreatic neoplastic lesion. Endoscopic ultrasound or abdominal MRI without and with contrast could help further evaluate. 4. Multiple hepatic parenchymal lesions, the largest of which is within the hepatic dome. Findings are concerning for hepatic parenchymal metastases. No intra- or extrahepatic biliary ductal dilatation. 5. Ybih-qs-gqbblhmp abdominal ascites, new when compared to the prior examination. Stable prominent periportal and retroperitoneal lymph nodes, concerning for metastatic disease. 6. Redemonstration of a left adrenal nodule measuring up to 2.5 cm, concerning for a metastatic lesion. 7. Multiple bilateral hyper and hypodense renal parenchymal lesions are unchanged. Assessment and Plan (1) Pancreatic cancer: Qualifiers: Pancreatic malignancy location: unspecified Qualified Code(s): C25.9 - Malignant neoplasm of pancreas, unspecified Status: Acute (2) Metastatic disease: Status: Acute (3) Pneumonia: Status: Acute (4) Hyponatremia: Status: Acute (5) Lactic acidosis: Status: Acute This is a 61-year-old male with past medical history of hypertension, diabetes her recent pancreatitis secondary to alcohol abuse presents to the hospital with abnormal but labs with CT abdomen and chest showing concern for metastatic disease and pancreatic cancer # pancreatic lesion concerning for pancreatic cancer with concern for metastatic disease - patient has elevated lipase, no abdominal pain suggestive of acute pancreatitis as well as metastasis to multiple places including lungs, as well as adrenal gland - CT abdomen as above suggestive of pancreatic cancer - will obtain CA 19-9, CA 125 - consult gastroenterology - Hematology-Oncology consult # pneumonia - reports shortness of breath - has leukocytosis with evidence of infiltrate on CT scan of the chest - will start him on IV antibiotics - follow culture # hyponatremia - possibly secondary to lung metastasis - will obtain urine studies as well as serum osmolality - start him on NS - follow BMP - nephrology consult - will obtain parathyroid hormone related pr # lactic acidosis - unclear etiology - resolved after IV fluids # hypertension - stable - continue home medications of amlodipine and lisinopril # diabetes - hold metformin - start low-dose sliding scale insulin - diabetic diet DVT prophylaxis: Heparin subQ Quality Stroke Does the patient have a stroke diagnosis?: No VTE Prior VTE?: No VTE Risk Level:: Medical - moderate - high VTE Device Contraindication: Treatment Not Indicated VTE Drug Contraindication: N/A - Med Ordered
[2021-04-17] VITALS (8 sets, daily range): BP systolic 112–144; BP diastolic 63–85; PULSE 83–97; RESP 18–20; TEMP 36.1–37.2; O2SAT 93–97; BMI 30.9
[2021-04-17] MEDS: LORazepam 1 MG TABLET 2 MG PO (01:35)
--- NOTE | 2021-04-17 01:49 | PC.NURSE ---
Report given to unit . Pt being transferred to unit by PCT
[2021-04-17] MEDS: 0.9 % Sodium Chloride 1,000 ML 80 ML IVCONT (02:26)
[2021-04-17] MEDS: Heparin Sodium,Porcine 5,000 UNIT/ML VIAL 5000 UNIT SUBCUT ×2 (02:27→14:06)
[2021-04-17] MEDS: Azithromycin 500 MG in 0.9 % Sodium Chloride 250 ML 125 MG IV (02:35)
[2021-04-17 03:16] LABS: Glucose, Whole Blood 159 mg/dL (60-115)
[2021-04-17 05:42] LABS: MANUAL DIFF FLAG NO
[2021-04-17 05:46] LABS: Basophils Percent Auto 0.1 % (0-2); Eosinophils Absolute Auto 0.1 X10*3/uL (0.0-0.4); Eosinophils Percent Auto 0.3 % (0-4); Hematocrit 31.8 % (42-52); Hemoglobin 11.3 g/dl (14.0-18.0); Imm Gran Abs Auto 0.54 X10*3/uL (0.00-0.03); Lymphocytes Absolute Auto 1.3 X10*3/uL (1.2-4.9); Lymphocytes Percent Auto 6.9 % (20-40); Mean Corpuscular HGB Conc 35.5 g/dl (31.0-36.0); Mean Corpuscular Volume 90.1 fL (80-98); Monocytes Absolute Auto 1.4 X10*3/uL (0.1-1.2); Neutrophils Absolute Auto 14.8 X10*3/uL (2.0-8.3); Neutrophils Percent Auto 81.7 % (45-73); Platelet Count 158 X10*3/uL (160-400); Red Blood Count 3.53 X10*6/uL (4.60-5.80); Red Cell Distribution Width 14.5 % (11.0-16.0); White Blood Count 18.1 X10*3/uL (4.8-10.8)
[2021-04-17 06:24] LABS: Anion Gap 11 (12-20); Blood Urea Nitrogen 11 mg/dL (9-16); Calcium 8.2 mg/dL (8.4-10.2); Carbon Dioxide 20 mmol/L (22-29); Chloride 99 mmol/L (96-108); Creatinine Clr Calc Pharmacy 189.9; Estimated Glomerular Filt Rate > 60; Glucose Random 125 mg/dL (60-115); Potassium 4.3 mmol/L (3.3-5.1); Sodium 126 mmol/L (135-145)
[2021-04-17 06:51] LABS: Osmolality, Serum 265 mosm/kg (281-305)
[2021-04-17 08:17] LABS: Glucose, Whole Blood 185 mg/dL (60-115)
[2021-04-17 08:17] LABS: Anion Gap 13 (12-20); Carbon Dioxide 21 mmol/L (22-29); Chloride 98 mmol/L (96-108); Potassium 4.7 mmol/L (3.3-5.1); Sodium 127 mmol/L (135-145)
[2021-04-17] MEDS: Atorvastatin Calcium 10 MG TABLET PO (08:55)
[2021-04-17] MEDS: amLODIPine Besylate 5 MG TABLET PO (08:55)
[2021-04-17] MEDS: allopurinoL 300 MG TABLET PO (08:55)
[2021-04-17] MEDS: Multivitamin TABLET 1 TAB PO (08:55)
[2021-04-17] MEDS: cloNIDine HCL 0.1 MG TABLET PO (08:55)
[2021-04-17] MEDS: lisinopriL 5 MG TABLET PO (08:55)
[2021-04-17] MEDS: 0.9 % Sodium Chloride Flush 3 ML SYRINGE IVFLUSH (08:56)
--- NOTE | 2021-04-17 09:14 | MHC.CM.PN ---
PATIENT LIVES WITH HIS HCP/, AL[facility]. COPY OF HCP REQUESTED TO BE BROUGHT IN TODAY. PATIENT IS INDEPENDENT WITH ALL ADLS. NO DME OR VNA, OR ELDER SERVICES. HE DOES HAVE CONCERNS ABOUT HIS INSURANCE AND IF THIS HOSPITAL STAY IS COVERED PATIENT MADE AWARE THAT HE CAN SPEAK TO FINANCIAL SERVICES AT ANYTIME DURING HIS STAY. 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
[2021-04-17 11:39] LABS: Glucose, Whole Blood 149 mg/dL (60-115)
--- NOTE | 2021-04-17 11:39 | P.CNHO_ITS ---
Subjective - Subjective Chief complaint: Consult for: Pancreatic mass. Liver lesions. Adrenal lesion. Patient: new to practice Consult date: 04/17/21 Requesting Physician: Lukasz. Primary Care Provider: Cj Blackburn [facility] Medical Summary: DIAGNOSIS: PANCREATIC MASS. LIVER LESIONS. ADRENAL LESION. HPI - Consult Narrative Reason for consult: Consult for: Pancreatic mass. Liver lesions. Adrenal lesion. Narrative: Jose De is a pleasant 61 year old gentleman, who presents to the emergency department with abnormal labs. Patient was admitted here last month. He was discharged, on 03/27 being treated for acute pancreatitis secondary to alcohol use. He had a follow-up with his PCP yesterday. His labs revealed multiple abnormalities including elevated lipase and sodium of 126, so he was sent to the hospital for further evaluation. He denies any abdominal pain at this time, no nausea, no vomiting, no diarrhea or constipation, no urinary symptoms. He denies any chest pain, but reports mild dyspnea on exertion that has been chronic. Denies any lower extremity edema and no cough or sputum production. He has no headache or change in vision. Reports that he has not drink alcohol since his admission in March. He reports that he is feeling rather well. His vitals: temp of 98.4?, heart rate of 111, blood pressure 108/72, satting 97% on room air Labs: significant for WBC of 22.1,which improved to 18.4, hemoglobin of 12.3, PT of 18.4, INR of 1.6. Sodium of 124, potassium 4.9, glucose of 136, lactic acid of 2.7 that improved after fluids to 1.8. Total bili of 3.3, AST of 71, ALT of 62, alk-phos of 531, lipase of 789, which improved to 394. COVID-[address] and chest and chest showed multiple abnormalities: including right-sided pleural effusion with bibasilar atelectasis versus infiltrate, increased when compared to previous study, bilateral pulmonary nodules measuring up to 0.8 cm concerning for metastatic disease, prominence of the pancreatic head with a lobulated cystic focus within the uncinate process and increased dilatation of the main pancreatic duct with increased adjacent inflammatory change suggesting pancreatic neoplastic lesion. Multiple hepatic parenchymal lesions concerning for metastasis. Mild to moderat e abdominal ascites, prominent periportal and retroperitoneal lymph nodes concerning for metastatic disease, left adrenal nodule measuring 2.5 cm concerning for metastatic disease. PAST MEDICAL HISTORY: Hypertension, Hyperlipidemia, Diabetes, Alcohol use disorder. FAMILY HISTORY: Dad had lung cancer. No history of pancreatic malignancy in the family. 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 He is . Has 5 children. He smoked for 20 years. He drinks heavily. He has not had a drink since his last visit to the hospital back in March. Review of Systems - Constitutional Reports system reviewed and no additional complaints, except as documented, Reports anorexia, Reports lack of energy, Reports weakness, Reports weight loss - Eyes Reports system reviewed and no additional complaints, except as documented, Reports blurry vision - ENT Reports system reviewed and no additional complaints, except as documented - Cardiovascular Reports system reviewed and no additional complaints, except as documented, Denies chest pain at rest - Respiratory Reports no additional respiratory complaints, Denies chest congestion - Gastrointestinal Reports system reviewed and no additional complaints, except as documented, Denies abdominal pain, Denies belching, Denies change in bowel habits - Genitourinary Genitourinary: Reports no additional male genitourinary complaints, Denies blood in urine - Musculoskeletal Reports system reviewed and no additional complaints, except as documented, Denies abnormal walking, Denies back pain - Integumentary/Breasts Skin/Breast: Reports no additional skin complaints, Denies bleeding lesions - Neurologic Reports system reviewed and no additional complaints, except as documented - Psychiatric Reports system reviewed and no additional complaints, except as documented, Denies anxiety - Endocrine Reports no additional endocrine complaints, Denies excessive sweating - Hematologic/Lymphatic Reports system reviewed and no additional complaints, except as documented, Denies easy bruising - Allergic/Immunologic Reports system reviewed and no additional complaints, except as documented, Denies GI upset with certain foods Oncology Screenings - ECOG Performance Status ECOG Performance Status: 2 [facility] Medical History: Medical History (Last Reviewed 05/01/21 @ 13:54 by So Pineda) Adrenal mass Diabetes ETOH abuse HTN (hypertension) Hx of gout Hyperlipidemia Hyponatremia Lactic acidosis Metastatic disease Pancreatic cancer Pancreatitis Pneumonia Pulmonary nodules Tobacco use Functional capacity: uses cane/walker Patient : No Family History: Family History (Last Reviewed 05/01/21 @ 13:54 by So Pineda) Father Lung cancer Mother Diabetes Surgical History: Surgical History (Last Reviewed 05/01/21 @ 13:54 by So Pineda) H/O left knee surgery Social History: Social History (Last Reviewed 05/01/21 @ 13:54 by So Pineda) Living Situation History: Household Members: Spouse Housing: House Do you presently have visiting nurse or other home services: No Alcohol History: Alcohol intake: current Alcohol History Details: Alcohol intake frequency: a few times a week Tobacco History: Patient Tobacco Use Status: Former Tobacco user Years Smoked: 2.5 years ago e-Cigarette/Vaping Use: Never Used Second Hand Smoke Exposure: No Advance Directives: Advance Directives: No Advance Directives Information Provided: No Occupation Assessmet: service: No Current occupational status: employed Current occupational status: retired Home Medications and Allergies Current Medications: Current Medications Generic Name Dose Route Start Last Admin Trade Name Freq PRN Reason Stop Dose Admin Acetaminophen 650 mg 04/17/21 02:02 Acetaminophen 325 Mg Tablet PO Q6H PRN Pain, Mild (Pain Scale 1-3) Allopurinol 300 mg 04/17/21 09:00 04/17/21 08:55 Allopurinol 300 Mg Tablet PO 300 mg DAILY [facility] Administration Amlodipine Besylate 5 mg 04/17/21 09:00 04/17/21 08:55 Amlodipine Besylate 5 Mg Tablet PO 5 mg DAILY [facility] Administration Protocol Atorvastatin Calcium 10 mg 04/17/21 09:00 04/17/21 08:55 Atorvastatin Calcium 10 Mg Tablet PO 10 mg DAILY [facility] Administration Clonidine HCl 0.1 mg 04/17/21 09:00 04/17/21 08:55 Clonidine Hcl 0.1 Mg Tablet PO 0.1 mg DAILY [facility] Administration Protocol Dextrose 25 gm 04/17/21 06:24 Dextrose 50 % 25 Gm/50 Ml Vial IVPUSH Q15M PRN per Hypoglycemia Standing Ord. Protocol Docusate Sodium 100 mg 04/17/21 02:02 Docusate Sodium 100 Mg Capsule PO DAILY PRN Constipation Glucose 15 gm 04/17/21 06:24 Glucose Gel 15 Gm Gel..Gram. PO Q15M PRN per Hypoglycemia Standing Ord. Protocol Heparin Sodium (Porcine) 5,000 unit 04/17/21 02:02 04/17/21 02:27 Heparin Sodium,Porcine 5,000 Unit/Ml Vial SUBCUT 5,000 unit Q12H [facility] Administration Ceftriaxone Sodium 1 gm/ 50 mls @ 100 mls/hr 04/17/21 21:00 Sodium Chloride IV Q24H [facility] Azithromycin 500 mg/ Sodium 250 mls @ 125 mls/hr 04/17/21 03:00 04/17/21 04:41 Chloride IV Infused Q24H [facility] Infusion Sodium Chloride 1,000 mls @ 100 mls/hr 04/17/21 02:02 04/17/21 06:27 Ns IVCONT 100 mls/hr .Q10H [facility] Infusion Insulin Human Lispro 0 unit 04/17/21 07:30 04/17/21 09:00 Insulin Lispro 100 Unit/Ml 3 Ml Vial SUBCUT Not Given QIDACHS [facility] Protocol Lisinopril 5 mg 04/17/21 09:00 04/17/21 08:55 Lisinopril 5 Mg Tablet PO 5 mg DAILY [facility] Administration Protocol Multivitamins 1 tab 04/17/21 09:00 04/17/21 08:55 B-Complex With Vitamin C Tablet PO 1 tab DAILY [facility] Administration Multivitamins/Vitamin C 1 tab 04/17/21 09:00 04/17/21 08:55 Multivitamin Tablet PO 1 tab DAILY [facility] Administration Ondansetron HCl 4 mg 04/17/21 02:02 Ondansetron Hcl 4 Mg/2 Ml Vial IVPUSH Q8H PRN Nausea and Vomiting Pharmacy Consult 1 each 04/16/21 21:25 Consult Rx Perform Med Rec MISCELLANE ONCE PRN Consult order Sodium Chloride 3 ml 04/17/21 02:02 04/17/21 08:56 0.9 % Sodium Chloride Flush 3 Ml Syringe IVFLUSH 3 ml QSHIFT [facility] Administration Timolol Maleate 1 drop 04/17/21 11:15 Timolol Maleate Xe 0.25 % Gel 5 Ml Drbtl EYE-BOTH DAILY [facility] Home Medications Medication Instructions Recorded Confirmed Type allopurinol 300 mg tablet 300 mg PO DAILY 12/02/20 05/01/21 History B-complex with vitamin C 1 tab PO DAILY 03/27/21 05/01/21 History multivitamin 1 tab PO DAILY 03/27/21 05/01/21 History timolol maleate 0.25 % eye gel 1 drp QAM 03/27/21 05/01/21 History forming solution Allergies Allergy/AdvReac Type Severity Reaction Status Date / Time No Known Allergies Allergy Verified 04/28/21 16:29 [No Known Allergies*] Physical Exam Vital signs: Vital Signs Temp 97.4 F 04/17/21 09:25 Pulse 89 04/17/21 09:25 Resp 18 04/17/21 09:25 BP 128/74 04/17/21 09:25 Pulse Ox 95 04/17/21 09:25 Intake & Output 04/16/21 04/17/21 04/17/21 18:59 06:59 18:59 Intake Total 4127.693 / 4127.693 Output Total 150 / 150 Balance 3977.693 / 3977.693 Urine Output (Average ml/kg/hr) 0.11 0.11 Intake: Intake, IV Amount 4127.693 / 4127.693 Azithromycin 500 mg In 0.9 % 250 / 250 Sodium Chloride 250 ml @ 125 mls/hr IV Q24H [facility] Rx#: [id number] cefTRIAXone sodium 1 gm In 0.9 100 / 100 % Sodium Chloride 100 ml @ 200 mls/hr IV ONCE ONE Rx#: [id number] 0.9 % Sodium Chloride 1,000 ml 3777.693 / 3777.693 @ 80 mls/hr IVCONT .[id number] [facility] Rx#:[id number] Output: Output, Urine Amount 150 / 150 Other: NPO Yes Urine Bathroom Urine Color Yellow Last Bowel Movement 04/16/21 Weight 115.212 kg Weight 115.212 kg - Constitutional Present: no acute distress - Routine HEENT Exam Head: Present: normal inspection ENT: Present: mucous membranes moist - Routine Neck Exam Present: supple - Routine Cardiovascular Exam Cardiovascular: Present: RRR, S1, S2 - Routine Abdominal Exam Present: soft, tenderness. Absent: Abdi's sign, nontender - Routine Rectal Exam Patient deferred: digital exam - Routine Extremities Exam Present: nontender - Routine Back/Spine/Pelvis Exam Back/Spine: Absent: CVA tenderness Pelvis: Absent: sacral tenderness Hem/Onc Consult Result - Labs CBC & Chem 7: 04/21/21 05:42 04/21/21 05:42 Labs: Short CBC 04/16/21 04/17/21 Range/Units 20:33 05:20 WBC 18.4 H 18.1 H (4.8-10.8) X10*3/uL Hgb 12.3 L 11.3 L (14.0-18.0) g/dl Hct 34.5 L 31.8 L (42-52) % Plt Count 185 158 L (160-400) X10*3/uL BMP 04/16/21 04/17/21 04/17/21 20:33 05:20 07:55 Sodium 124 L 126 L 127 L Potassium 4.9 4.3 4.7 Chloride 95 L 99 98 Carbon Dioxide 20 L 20 L 21 L BUN 14 11 Creatinine 0.64 0.56 Calcium 9.2 8.2 L D Liver Function 04/16/21 Range/Units 20:33 Total Bilirubin 3.3 H (0.0-1.0) mg/dL AST 71 H (5-37) U/L ALT 62 H (0-40) U/L Alkaline Phosphatase 531 H (39-117) U/L Albumin 3.1 L (3.5-5.0) g/dL Assessment and Plan Patient Active problem list reviewed?: Yes (1) Pancreatic cancer Status: Inactive Assessment and plan: This is an unfortunate 61-year-old gentleman, who presented with abnormal labs, including leukocytosis, anemia and hyponatremia. CT scan of the abdomen revealed: 1. Small right-sided pleural effusion with bibasilar atelectasis versus infiltrates, increased when compared to the prior examination. Innumerable bilateral pulmonary nodules measuring up to 0.8 cm. Findings are concerning for metastatic disease. 2. Dilatation of the ascending thoracic aorta measuring up to 4.1 cm. Prominence of the main pulmonary arteries, which can be seen in the setting of pulmonary hypertension. 3. Prominence of the pancreatic head with a lobulated cystic focus within the uncinate process. Increasing dilatation of the main pancreatic duct with increasing adjacent inflammatory change. Findings are concerning for a pancreatic neoplastic lesion. Endoscopic ultrasound or abdominal MRI without and with contrast could help further evaluate. 4. Multiple hepatic parenchymal lesions, the largest of which is within the hepatic dome. Findings are concerning for hepatic parenchymal metastases. No intra- or extrahepatic biliary ductal dilatation. 5. Mhxo-he-uhwrczna abdominal ascites, new when compared to the prior examination. Stable prominent periportal and retroperitoneal lymph nodes, co ncerning for metastatic disease. 6. Redemonstration of a left adrenal nodule measuring up to 2.5 cm concerning for a metastatic lesion. 7. Multiple bilateral hyper and hypodense renal parenchymal lesions are unchanged. Concern is pancreatic carcinoma with Mets to lung liver and left adrenal gland. Next step would be to proceed with tissue diagnosis. We tried to schedule a liver lesion biopsy today however the patient ate this morning. PLAN: Will proceed with paracentesis for diagnostic purposes, today. Will schedule him for ultrasound-guided biopsy of the liver lesion for Tuesday. Will check baseline tumor markers.( Ca 19/9: 88,315.) Will make further plans based upon the above results. Thank you, CC: Dr. Lal. Addendum: Pathology: Adenocarcinoma with Pancreatic Primary. - Time Spent With Patient Time Spent with Patient (in minutes): 35
--- NOTE | 2021-04-17 11:59 | MHC.CLN ---
NUTRITION CURENT DIET IS NPO. WHEN DIET ADVANCES RECOMMEND DIABETIC 2200 KCAL. ADD GLUCERNA SUPPLEMENT 240 ML BID TO PROVIDE 470 KCAL, 20 G PROTEIN.
--- NOTE | 2021-04-17 12:59 | HO.RADPN ---
RADIOLOGY Narrative Narrative: RLQ paracentesis performed using 5 fr catheter. L clear fluid removed. Specimen sent.
[2021-04-17] MEDS: Lidocaine HCl 1 % MPF 5 ML VIAL SUBCUT (13:51)
[2021-04-17 14:17] LABS: MN% 85.7 %; PMN% 14.3 %
[2021-04-17 14:18] LABS: RBC Peritoneal Fluid < 0.002 X10*6/uL
--- NOTE | 2021-04-17 14:36 | P.CONNP_ITS ---
History of Present Illness Reason for Consult Consult date: 04/17/21 Reason for consult: Hyponatremia Chief Complaint Chief complaint: Pancreatic cancer/mets History of Present Illness Narrative: Mini is a 61 year old gentleman who was sent over to the emergency department with abnormal blood work.? Patient was discharged from the hospital on 03/27 after being treated for acute pancreatitis secondary to alcohol use.? Patient at that time was treated for acute pancreatitis and sent home after resolution of symptoms and oral intake.? Patient denies any abdominal pain at this time, no nausea, no vomiting, no diarrhea or constipation, no urinary symptoms.? He denies any chest pain, but reports mild dyspnea on exertion that has been chronic.? Denies any lower extremity edema and no cough or sputum production.? He has? no headache or change in vision.? Reports that he has not drink alcohol since his admission in March.? He reports that he is doing well and is feeling well. His serum sodium was found to be 126. Nephrology has been consulted to assist in his clinical care. Review of Systems Review of Systems Yes all other systems are reviewed and are negative [facility] Past Medical History Medical History Diabetes ETOH abuse HTN (hypertension) Hx of gout Hyperlipidemia Tobacco use Functional capacity: uses cane/walker Family History Family History Father Lung cancer Mother Diabetes Surgical History Surgical History H/O left knee surgery Social History Social History Household Members: Spouse Housing: House Do you presently have visiting nurse or other home services: No Alcohol intake: current Alcohol intake frequency: a few times a week Patient Tobacco Use Status: Former Tobacco user Years Smoked: 2.5 years ago e-Cigarette/Vaping Use: Never Used Second Hand Smoke Exposure: No Use of substances other than those prescribed or required for medical reasons: Yes Have you been hit, kicked, punched, or otherwise hurt by someone within the past year? If so, by whom?: No Do you feel safe in your current relationship?: Yes Is there a partner from a previous relationship who is making you feel unsafe now?: No Are you made to feel afraid or neglected: No Advance Directives: No Advance Directives Information Provided: No Do you have thoughts of harming others: None Do you have a plan to hurt others: No Plan Recently lost weight without trying: No Eating poorly because of decreased appetite: Yes Nutrition Risks: No Nutritional Risk service: No Current occupational status: employed and retired Meds Allergies Allergy/AdvReac Type Severity Reaction Status Date / Time No Known Allergies Allergy Verified 04/15/21 17:57 [No Known Allergies*] Active Medications: Current Medications Generic Name Dose Route Start Last Admin Trade Name Freq PRN Reason Stop Dose Admin Acetaminophen 650 mg 04/17/21 02:02 Acetaminophen 325 Mg Tablet PO Q6H PRN Pain, Mild (Pain Scale 1-3) Allopurinol 300 mg 04/17/21 09:00 04/17/21 08:55 Allopurinol 300 Mg Tablet PO 300 mg DAILY [facility] Administration Amlodipine Besylate 5 mg 04/17/21 09:00 04/17/21 08:55 Amlodipine Besylate 5 Mg Tablet PO 5 mg DAILY [facility] Administration Protocol Atorvastatin Calcium 10 mg 04/17/21 09:00 04/17/21 08:55 Atorvastatin Calcium 10 Mg Tablet PO 10 mg DAILY [facility] Administration Clonidine HCl 0.1 mg 04/17/21 09:00 04/17/21 08:55 Clonidine Hcl 0.1 Mg Tablet PO 0.1 mg DAILY [facility] Administration Protocol Dextrose 25 gm 04/17/21 06:24 Dextrose 50 % 25 Gm/50 Ml Vial IVPUSH Q15M PRN per Hypoglycemia Standing Ord. Protocol Docusate Sodium 100 mg 04/17/21 02:02 Docusate Sodium 100 Mg Capsule PO DAILY PRN Constipation Glucose 15 gm 04/17/21 06:24 Glucose Gel 15 Gm Gel..Gram. PO Q15M PRN per Hypoglycemia Standing Ord. Protocol Heparin Sodium (Porcine) 5,000 unit 04/17/21 02:02 04/17/21 14:06 Heparin Sodium,Porcine 5,000 Unit/Ml Vial SUBCUT 5,000 unit Q12H [facility] Administration Ceftriaxone Sodium 1 gm/ 50 mls @ 100 mls/hr 04/17/21 21:00 Sodium Chloride IV Q24H [facility] Azithromycin 500 mg/ Sodium 250 mls @ 125 mls/hr 04/17/21 03:00 04/17/21 04:41 Chloride IV Infused Q24H [facility] Infusion Sodium Chloride 1,000 mls @ 100 mls/hr 04/17/21 02:02 04/17/21 14:07 Ns IVCONT 100 mls/hr .Q10H [facility] Infusion Insulin Human Lispro 0 unit 04/17/21 07:30 04/17/21 12:01 Insulin Lispro 100 Unit/Ml 3 Ml Vial SUBCUT Not Given QIDACHS [facility] Protocol Lisinopril 5 mg 04/17/21 09:00 04/17/21 08:55 Lisinopril 5 Mg Tablet PO 5 mg DAILY [facility] Administration Protocol Multivitamins 1 tab 04/17/21 09:00 04/17/21 08:55 B-Complex With Vitamin C Tablet PO 1 tab DAILY [facility] Administration Multivitamins/Vitamin C 1 tab 04/17/21 09:00 04/17/21 08:55 Multivitamin Tablet PO 1 tab DAILY [facility] Administration Ondansetron HCl 4 mg 04/17/21 02:02 Ondansetron Hcl 4 Mg/2 Ml Vial IVPUSH Q8H PRN Nausea and Vomiting Pharmacy Consult 1 each 04/16/21 21:25 Consult Rx Perform Med Rec MISCELLANE ONCE PRN Consult order Sodium Chloride 3 ml 04/17/21 02:02 04/17/21 08:56 0.9 % Sodium Chloride Flush 3 Ml Syringe IVFLUSH 3 ml QSHIFT [facility] Administration Timolol Maleate 1 drop 04/17/21 11:15 Timolol Maleate Xe 0.25 % Gel 5 Ml Drbtl EYE-BOTH DAILY [facility] Home Medications Medication Instructions Recorded Confirmed Last Taken Type allopurinol 300 mg tablet 300 mg PO DAILY 12/02/20 04/16/21 04/16/21 History B-complex with vitamin C 1 tab PO DAILY 03/27/21 04/16/21 04/16/21 History multivitamin 1 tab PO DAILY 03/27/21 04/16/21 04/16/21 History timolol maleate 0.25 % eye gel 1 drp QAM 03/27/21 04/16/21 04/16/21 History forming solution Physical Exam Vital Signs: Last Vital Signs Temp 97.4 F 04/17/21 13:55 Pulse 93 04/17/21 13:55 Resp 18 04/17/21 13:55 BP 138/79 04/17/21 13:55 Pulse Ox 97 04/17/21 13:55 Body Mass Index 30.9 Const General: no acute distress Eyes EOM: EOMs intact bilaterally Resp Auscultation: diminished lung sounds Cardio Rate: regular rate GI Palpation (GI): Soft to palpation Neuro General: moves all extremities Results Lab Results Result Diagrams: 04/17/21 05:20 04/17/21 07:55 Lab results: Chemistry 04/16/21 04/17/21 04/17/21 20:33 05:20 07:55 Sodium 124 L 126 L 127 L Potassium 4.9 4.3 4.7 Carbon Dioxide 20 L 20 L 21 L BUN 14 11 Creatinine 0.64 0.56 Calcium 9.2 8.2 L D Hematology 04/16/21 04/17/21 20:33 05:20 WBC 18.4 H 18.1 H Hgb 12.3 L 11.3 L Plt Count 185 158 L Assessment and Plan (1) Hyponatremia: Status: Acute Likely has excess ADH; Urine studies pending( Urine sodium and Osmolality) D/C Iv fluids; Fluid restriction; No indication for 3% saline/PO Urea now Oncology consult pending. Shall continue to closely follow up Procedures Date of Service Date of Service: 04/17/21
[2021-04-17 14:46] LABS: BF Shift QC OK YES; Lymphocyte Peritoneal Fl 6 %; Monocytes Peritoneal Fl 2 %; Neutrophils Peritoneal Fluid 15 %; Other Peritioneal Fl 77 %
--- NOTE | 2021-04-17 16:17 | P.PNIM_ITS ---
Subjective Subjective Date of Service: 04/17/21 Interval History: Being followed for hyponatremia, denies fever, chills feels cough is improving and overall he is feeling better. Review of Systems General no headache no dizziness no fever chills. CVS no chest pain, no palpitation. Respiratory cough, no sob. Gastrointestinal no nausea no vomiting, no abdominal pain Physical Exam Vital Signs: Vital Signs: Last Vital Signs Temp 97 F 04/17/21 15:36 Pulse 83 04/17/21 15:36 Resp 19 04/17/21 15:36 BP 112/75 04/17/21 15:36 Pulse Ox 96 04/17/21 15:36 Body Mass Index 30.9 General resting comfortably in no acute distress. Alert oriented x3 Neck supple no JVD. CVS regular rate rhythm, Respiratory lungs clear to auscultation, no respiratory distress, no wheeze, no rhonchi. Gastrointestinal abdomen soft, nontender, bowel sounds audible, no guarding , no rigidity. Extremities no edema. Neuro nonfocal , moving all 4 extremity speech clear. Skin no rash Objective Data Active Medications Acetaminophen (Acetaminophen 325 Mg Tablet) 650 mg PO Q6H PRN PRN Reason: Pain, Mild (Pain Scale 1-3) Allopurinol (Allopurinol 300 Mg Tablet) 300 mg PO DAILY [facility] Last Admin: 04/17/21 08:55 Dose: 300 mg Documented by: SATHYA Amlodipine Besylate (Amlodipine Besylate 5 Mg Tablet) 5 mg PO DAILY [facility]; Protocol Last Admin: 04/17/21 08:55 Dose: 5 mg Documented by: SATHYA Atorvastatin Calcium (Atorvastatin Calcium 10 Mg Tablet) 10 mg PO DAILY [facility] Last Admin: 04/17/21 08:55 Dose: 10 mg Documented by: SATHYA Clonidine HCl (Clonidine Hcl 0.1 Mg Tablet) 0.1 mg PO DAILY [facility]; Protocol Last Admin: 04/17/21 08:55 Dose: 0.1 mg Documented by: SATHYA Dextrose (Dextrose 50 % 25 Gm/50 Ml Vial) 25 gm IVPUSH Q15M PRN; Protocol PRN Reason: per Hypoglycemia Standing Ord. Docusate Sodium (Docusate Sodium 100 Mg Capsule) 100 mg PO DAILY PRN PRN Reason: Constipation Glucose (Glucose Gel 15 Gm Gel..Gram.) 15 gm PO Q15M PRN; Protocol PRN Reason: per Hypoglycemia Standing Ord. Heparin Sodium (Porcine) (Heparin Sodium,Porcine 5,000 Unit/Ml Vial) 5,000 unit SUBCUT Q12H [facility] Last Admin: 04/17/21 14:06 Dose: 5,000 unit Documented by: SATHYA Ceftriaxone Sodium 1 gm/ (Sodium Chloride) 50 mls @ 100 mls/hr IV Q24H [facility] Azithromycin 500 mg/ Sodium (Chloride) 250 mls @ 125 mls/hr IV Q24H [facility] Last Infusion: 04/17/21 04:41 Dose: 0 mls/hr Documented by: BREANNE Sodium Chloride (Ns) 1,000 mls @ 100 mls/hr IVCONT .Q10H [facility] Last Admin: 04/17/21 14:07 Dose: Not Given Documented by: SATHYA Non-Admin Reason: IV Running Insulin Human Lispro (Insulin Lispro 100 Unit/Ml 3 Ml Vial) 0 unit SUBCUT QIDACHS [facility]; Protocol Last Admin: 04/17/21 12:01 Dose: Not Given Documented by: SATHYA Non-Admin Reason: No Insulin Coverage Lisinopril (Lisinopril 5 Mg Tablet) 5 mg PO DAILY [facility]; Protocol Last Admin: 04/17/21 08:55 Dose: 5 mg Documented by: SATHYA Multivitamins (B-Complex With Vitamin C Tablet) 1 tab PO DAILY [facility] Last Admin: 04/17/21 08:55 Dose: 1 tab Documented by: SATHYA Multivitamins/Vitamin C (Multivitamin Tablet) 1 tab PO DAILY [facility] Last Admin: 04/17/21 08:55 Dose: 1 tab Documented by: SATHYA Ondansetron HCl (Ondansetron Hcl 4 Mg/2 Ml Vial) 4 mg IVPUSH Q8H PRN PRN Reason: Nausea and Vomiting Pharmacy Consult (Consult Rx Perform Med Rec) 1 each MISCELLANE ONCE PRN PRN Reason: Consult order Sodium Chloride (0.9 % Sodium Chloride Flush 3 Ml Syringe) 3 ml IVFLUSH QSHIFT [facility] Last Admin: 04/17/21 08:56 Dose: 3 ml Documented by: SATHYA Timolol Maleate (Timolol Maleate Xe 0.25 % Gel 5 Ml Drbtl) 1 drop EYE-BOTH DAILY [facility] Labs CBC & Chem 7: 04/17/21 05:20 04/17/21 07:55 Labs: Laboratory Results - last 24 hr 04/16/21 04/16/21 04/16/21 20:33 20:33 20:56 MCV 91.0 MCH 32.5 MCHC 35.7 RDW 14.4 Plt Count 185 MPV 10.6 Immature Gran % (Auto) 3.2 H Neut % (Auto) 81.0 H Lymph % (Auto) 7.6 L [place] % (Auto) 7.6 Eos % (Auto) 0.4 Baso % (Auto) 0.2 Lymph # (Auto) 1.4 [place] # (Auto) 1.4 H Eos # (Auto) 0.1 Baso # (Auto) 0.0 Abs Immat Gran (auto) 0.59 H Absolute Neuts (auto) 14.9 H Absolute Nucleated RBC 0.000 Nucleated RBC % (auto) 0.0 PT INR APTT Anion Gap 14 Estim Creat Clear Calc 166.1 Estimated GFR > 60 POC Glucose Random Glucose 136 H Osmolality Lactic Acid 2.7 H* Lactic Acid Fup @ 2Hr Calcium 9.2 Total Bilirubin 3.3 H AST 71 H ALT 62 H Alkaline Phosphatase 531 H B-Natriuretic Peptide Total Protein 6.8 Albumin 3.1 L Lipase Peritoneal WBC Peritoneal RBC Periton Neutrophils Periton Lymphocytes Peritoneal Monocytes Peritoneal Other Cells Coronavirus (PCR) Influenza Type A (PCR) Influenza Type B (PCR) RSV RNA Qual (PCR) 04/16/21 04/16/21 04/16/21 20:57 20:57 20:57 MCV MCH MCHC RDW Plt Count MPV Immature Gran % (Auto) Neut % (Auto) Lymph % (Auto) [place] % (Auto) Eos % (Auto) Baso % (Auto) Lymph # (Auto) [place] # (Auto) Eos # (Auto) Baso # (Auto) Abs Immat Gran (auto) Absolute Neuts (auto) Absolute Nucleated RBC Nucleated RBC % (auto) PT 18.4 H INR 1.6 H APTT 33.9 Anion Gap Estim Creat Clear Calc Estimated GFR POC Glucose Random Glucose Osmolality Lactic Acid Lactic Acid Fup @ 2Hr Calcium Total Bilirubin AST ALT Alkaline Phosphatase B-Natriuretic Peptide 39 Total Protein Albumin Lipase Peritoneal WBC Peritoneal RBC Periton Neutrophils Periton Lymphocytes Peritoneal Monocytes Peritoneal Other Cells Coronavirus (PCR) NEGATIVE Influenza Type A (PCR) NEGATIVE Influenza Type B (PCR) NEGATIVE RSV RNA Qual (PCR) NEGATIVE 04/16/21 04/16/21 04/17/21 20:57 23:17 03:09 MCV MCH MCHC RDW Plt Count MPV Immature Gran % (Auto) Neut % (Auto) Lymph % (Auto) [place] % (Auto) Eos % (Auto) Baso % (Auto) Lymph # (Auto) [place] # (Auto) Eos # (Auto) Baso # (Auto) Abs Immat Gran (auto) Absolute Neuts (auto) Absolute Nucleated RBC Nucleated RBC % (auto) PT INR APTT Anion Gap Estim Creat Clear Calc Estimated GFR POC Glucose 159 H Random Glucose Osmolality Lactic Acid Lactic Acid Fup @ 2Hr 1.8 Calcium Total Bilirubin AST ALT Alkaline Phosphatase B-Natriuretic Peptide Total Protein Albumin Lipase 394 H Peritoneal WBC Peritoneal RBC Periton Neutrophils Periton Lymphocytes Peritoneal Monocytes Peritoneal Other Cells Coronavirus (PCR) Influenza Type A (PCR) Influenza Type B (PCR) RSV RNA Qual (PCR) 04/17/21 04/17/21 04/17/21 05:20 05:20 05:20 MCV 90.1 MCH 32.0 MCHC 35.5 RDW 14.5 Plt Count 158 L MPV 10.0 Immature Gran % (Auto) 3.0 H Neut % (Auto) 81.7 H Lymph % (Auto) 6.9 L [place] % (Auto) 8.0 Eos % (Auto) 0.3 Baso % (Auto) 0.1 Lymph # (Auto) 1.3 [place] # (Auto) 1.4 H Eos # (Auto) 0.1 Baso # (Auto) 0.0 Abs Immat Gran (auto) 0.54 H Absolute Neuts (auto) 14.8 H Absolute Nucleated RBC 0.000 Nucleated RBC % (auto) 0.0 PT INR APTT Anion Gap 11 L Estim Creat Clear Calc 189.9 Estimated GFR > 60 POC Glucose Random Glucose 125 H Osmolality 265 L Lactic Acid Lactic Acid Fup @ 2Hr Calcium 8.2 L D Total Bilirubin AST ALT Alkaline Phosphatase B-Natriuretic Peptide Total Protein Albumin Lipase Peritoneal WBC Peritoneal RBC Periton Neutrophils Periton Lymphocytes Peritoneal Monocytes Peritoneal Other Cells Coronavirus (PCR) Influenza Type A (PCR) Influenza Type B (PCR) RSV RNA Qual (PCR) 04/17/21 04/17/21 04/17/21 07:41 07:55 11:16 MCV MCH MCHC RDW Plt Count MPV Immature Gran % (Auto) Neut % (Auto) Lymph % (Auto) [place] % (Auto) Eos % (Auto) Baso % (Auto) Lymph # (Auto) [place] # (Auto) Eos # (Auto) Baso # (Auto) Abs Immat Gran (auto) Absolute Neuts (auto) Absolute Nucleated RBC Nucleated RBC % (auto) PT INR APTT Anion Gap 13 Estim Creat Clear Calc Estimated GFR POC Glucose 185 H 149 H Random Glucose Osmolality Lactic Acid Lactic Acid Fup @ 2Hr Calcium Total Bilirubin AST ALT Alkaline Phosphatase B-Natriuretic Peptide Total Protein Albumin Lipase Peritoneal WBC Peritoneal RBC Periton Neutrophils Periton Lymphocytes Peritoneal Monocytes Peritoneal Other Cells Coronavirus (PCR) Influenza Type A (PCR) Influenza Type B (PCR) RSV RNA Qual (PCR) 04/17/21 12:25 MCV MCH MCHC RDW Plt Count MPV Immature Gran % (Auto) Neut % (Auto) Lymph % (Auto) [place] % (Auto) Eos % (Auto) Baso % (Auto) Lymph # (Auto) [place] # (Auto) Eos # (Auto) Baso # (Auto) Abs Immat Gran (auto) Absolute Neuts (auto) Absolute Nucleated RBC Nucleated RBC % (auto) PT INR APTT Anion Gap Estim Creat Clear Calc Estimated GFR POC Glucose Random Glucose Osmolality Lactic Acid Lactic Acid Fup @ 2Hr Calcium Total Bilirubin AST ALT Alkaline Phosphatase B-Natriuretic Peptide Total Protein Albumin Lipase Peritoneal WBC 0.720 Peritoneal RBC < 0.002 Periton Neutrophils 15 Periton Lymphocytes 6 Peritoneal Monocytes 2 Peritoneal Other Cells 77 Coronavirus (PCR) Influenza Type A (PCR) Influenza Type B (PCR) RSV RNA Qual (PCR) Microbiology Microbiology Results: Microbiology 04/17/21 12:25 Gram Stain - Final Ascites Fluid Assessment and Plan (1) Pancreatic cancer: Status: Acute (2) Pneumonia: Status: Acute (3) Metastatic disease: Status: Acute (4) Hyponatremia: Status: Acute (5) Lactic acidosis: Status: Acute (6) Pulmonary nodules: Status: Acute Assessment and Plan: 61-year-old male with past medical history of hypertension, diabetes her recent pancreatitis secondary to alcohol abuse presents to the hospital with abnormal but labs with CT abdomen and chest showing concern for metastatic disease and pancreatic cancer # pancreatic lesion concerning for pancreatic cancer with concern for metastatic disease - patient has elevated lipase, no abdominal pain suggestive of acute pancreatitis , CT abdomen showed metastatic lesion to multiple places including lungs, liver, adrenal gland CA 19-9, CA 125 pending, spoke with Dr. Menendez he is going to review CT abdomen findings with Radiology spoke with Dr. Fuentes, she recommended paracentesis and liver biopsy, will keep patient NPO will arrange for paracentesis with cytology Gram stain culture sensitivity, since patient had coffee this morning liver biopsy is planned for Tuesday # pneumonia - shortness of breath and cough improving continue IV antibiotics day 2, follow blood culture # hyponatremia - likely a SIADH case discussed with Nephrology will place fluid restriction DC IV fluids follow BMP # lactic acidosis - unclear etiology,resolved after IV fluids # hypertension - stable - continue home medications of amlodipine and lisinopril # diabetes - blood sugars stable, hold metformin, continue low-dose sliding scale insulin - diabetic diet DVT prophylaxis:? Heparin subQ Quality Stroke Does the patient have a stroke diagnosis?: No VTE Prior VTE?: No VTE Risk Level:: Medical - moderate - high VTE Device Contraindication: Treatment Not Indicated VTE Drug Contraindication: N/A - Med Ordered
[2021-04-17 16:18] LABS: Glucose, Whole Blood 123 mg/dL (60-115)
[2021-04-17] MEDS: 0.9 % Sodium Chloride 1,000 ML 100 ML IVCONT (17:08)
[2021-04-17 18:17] LABS: Glucose Random 143 mg/dL (60-115); Lactate Dehydrogenase 167 U/L (118-273); Total Protein 6.2 g/dL (6.5-8.0)
--- NOTE | 2021-04-17 19:05 | CONS_ITS ---
DATE OF SERVICE: 04/17/2021 REFERRING PHYSICIAN: Renate Lal MD REASON FOR CONSULTATION: Abnormal CT scan of the pancreas. HISTORY OF PRESENT ILLNESS: The patient is a pleasant 61-year-old man, who was admitted to the hospital yesterday. He was in the hospital earlier in March with acute pancreatitis, which was thought related to alcohol. At that time, CT scanning had been obtained, which was consistent with mild pancreatitis and followup imaging was planned. Cirrhosis was also noted with the liver lesion. He was evaluated by his primary care provider on the day of admission and had abnormal lab work and was advised to come to the emergency room. At that time, he had no abdominal pain, but did have some bloating and was abstinent from alcohol since his admission earlier in the month and tolerating a diet quite well. In the emergency department, he was evaluated again with lab work, which showed elevation of his liver function tests and lipase. He underwent repeat CT scanning at this time with contrast, which was reviewed. This is markedly abnormal with prominence of the pancreatic head suggestive of possible underlying mass. There was also questionable blood clot in the portal or splenic venous system, for which Doppler has been ordered. Ascites fluid was also noted and he is seen today in the ultrasound department, where he underwent paracentesis of about 2.5 L of clear light yellow ascites fluid, which is currently being sent for cytology as well as routine labs. The CAT scan also showed multiple lesions in the liver suspicious for possible metastasis as well as lung lesions. The patient has been seen in consultation by Dr. Fuentes and liver biopsy is planned for Tuesday, pending the results of paracentesis analysis. PAST MEDICAL HISTORY: 1. Pancreatitis as above. 2. Consistent alcohol use. 3. Hypertension. 4. Hyperlipidemia. 5. Diabetes mellitus. CURRENT MEDICATIONS: His current medication list is reviewed in the chart. ALLERGIES: THERE ARE NONE REPORTED. FAMILY HISTORY: This is reviewed with the patient and is noncontributory. SOCIAL HISTORY: Alcohol use is negative since his last admission. He does have a history of tobacco use in the past. REVIEW OF SYSTEMS: SKIN: No pruritus. HEENT: Negative. CARDIOPULMONARY: No shortness of breath or chest pain. GASTROINTESTINAL: As above. GENITOURINARY: Negative. NEUROPSYCHIATRIC: Negative. PHYSICAL EXAMINATION: GENERAL: Shows a pleasant male, lying comfortably on the stretcher. VITAL SIGNS: Reviewed in the electronic medical record and are stable. SKIN: Anicteric. HEENT: Shows no scleral icterus. NECK: Without lymphadenopathy or thyromegaly. LUNGS: Clear. HEART: Shows a regular rate and rhythm. S1, S2. No murmur. ABDOMEN: Obese. There is a dressing in place from his recent paracentesis. Bowel sounds are present. There is no guarding, tenderness, or rebound. EXTREMITIES: Show no edema. LABORATORY DATA: Reviewed. IMPRESSION: Abnormal CT scan of the pancreas with ascites. His presentation is concerning for possible underlying pancreatic carcinoma. I agree with obtaining cytology evaluation of his ascites fluid and pending this result. He might need liver biopsy for further evaluation. Oncology consultation has already been obtained. Thanks for asking me to see him. I will follow him in the hospital with you. MD ANIL Block/CROW / [id number]
[2021-04-17 20:24] LABS: Glucose, Whole Blood 153 mg/dL (60-115)
[2021-04-17] MEDS: cefTRIAXone sodium 1 GM in 0.9 % Sodium Chloride 50 ML IV (20:44)
[2021-04-17] MEDS: Zolpidem Tartrate 5 MG TABLET PO (21:23)
[2021-04-18] MEDS: Heparin Sodium,Porcine 5,000 UNIT/ML VIAL 5000 UNIT SUBCUT ×2 (00:19→13:49)
[2021-04-18] MEDS: 0.9 % Sodium Chloride 1,000 ML 100 ML IVCONT (01:51)
[2021-04-18] MEDS: Azithromycin 500 MG in 0.9 % Sodium Chloride 250 ML 125 MG IV (01:52)
[2021-04-18 04:00] VITALS: BP 126/73; PULSE 86; RESP 20; TEMP 36.9; O2SAT 95
[2021-04-18 07:20] LABS: Glucose, Whole Blood 111 mg/dL (60-115)
[2021-04-18 08:00] VITALS: BP 128/85; PULSE 95; RESP 18; TEMP 35.7; O2SAT 96
[2021-04-18 08:14] LABS: MANUAL DIFF FLAG NO
[2021-04-18 08:18] LABS: Basophils Percent Auto 0.2 % (0-2); Eosinophils Absolute Auto 0.1 X10*3/uL (0.0-0.4); Eosinophils Percent Auto 0.3 % (0-4); Hematocrit 32.7 % (42-52); Hemoglobin 11.9 g/dl (14.0-18.0); Imm Gran Abs Auto 0.32 X10*3/uL (0.00-0.03); Lymphocytes Absolute Auto 1.2 X10*3/uL (1.2-4.9); Lymphocytes Percent Auto 7.3 % (20-40); Mean Corpuscular HGB Conc 36.4 g/dl (31.0-36.0); Mean Corpuscular Hemoglobin 33.1 pg (27.0-33.0); Mean Corpuscular Volume 90.8 fL (80-98); Mean Platelet Volume 10.7 fL (9.4-12.4); Monocytes Absolute Auto 1.2 X10*3/uL (0.1-1.2); Monocytes Percent Auto 7.6 % (2-11); Neutrophils Absolute Auto 13.5 X10*3/uL (2.0-8.3); Neutrophils Percent Auto 82.6 % (45-73); Platelet Count 151 X10*3/uL (160-400); Red Cell Distribution Width 15.1 % (11.0-16.0); White Blood Count 16.4 X10*3/uL (4.8-10.8)
[2021-04-18] MEDS: 0.9 % Sodium Chloride Flush 3 ML SYRINGE IVFLUSH ×2 (08:31→21:17)
[2021-04-18] MEDS: cloNIDine HCL 0.1 MG TABLET PO (08:32)
[2021-04-18] MEDS: lisinopriL 5 MG TABLET PO (08:32)
[2021-04-18] MEDS: amLODIPine Besylate 5 MG TABLET PO (08:32)
[2021-04-18] MEDS: Atorvastatin Calcium 10 MG TABLET PO (08:32)
[2021-04-18] MEDS: allopurinoL 300 MG TABLET PO (08:32)
[2021-04-18] MEDS: Multivitamin TABLET 1 TAB PO (08:32)
[2021-04-18 08:33] LABS: Anion Gap 13 (12-20); Blood Urea Nitrogen 8 mg/dL (9-16); Calcium 8.3 mg/dL (8.4-10.2); Carbon Dioxide 17 mmol/L (22-29); Chloride 100 mmol/L (96-108); Creatinine Clr Calc Pharmacy 193.3; Estimated Glomerular Filt Rate > 60; Glucose Random 114 mg/dL (60-115); Potassium 4.3 mmol/L (3.3-5.1); Sodium 126 mmol/L (135-145)
[2021-04-18 09:30] LABS: Glucose Peritoneal Fluid 139; LDH Peritoneal Fluid 71; Total Protein Peritoneal Fluid 1.8
[2021-04-18 11:00] LABS: Glucose, Whole Blood 153 mg/dL (60-115)
[2021-04-18 11:49] LABS: Osmolality Urine 486 mosm/kg (373-1093)
[2021-04-18 12:00] VITALS: BP 122/72; PULSE 87; RESP 18; TEMP 36.4; O2SAT 95
--- NOTE | 2021-04-18 12:06 | P.PNIM_ITS ---
Subjective Subjective Date of Service: 04/18/21 Interval History: Being followed for hyponatremia and multiple metastatic lesions, feels cough and shortness of breath is improving,, denies fever, no chills no nausea, no vomiting, no abdominal pain. Review of Systems General no headache no dizziness no fever chills.? CVS no chest pain, no palpitation.? Respiratory? cough, no sob.? Gastrointestinal no nausea no vomiting, no abdominal pain Review of Systems: Yes all other systems are reviewed and are negative Physical Exam Vital Signs: Vital Signs: Last Vital Signs Temp 96.2 F L 04/18/21 08:00 Pulse 95 04/18/21 08:00 Resp 18 04/18/21 08:00 BP 128/85 04/18/21 08:00 Pulse Ox 96 04/18/21 08:00 Body Mass Index 30.9 General resting comfortably in no acute distress.? Alert oriented x3? Neck supple no JVD. CVS? regular rate rhythm, Respiratory lungs clear to auscultation, no respiratory distress, no wheeze, no rhonchi. Gastrointestinal abdomen soft, nontender, bowel sounds audible, no guarding , no rigidity. Extremities no edema. Neuro nonfocal , moving all 4 extremity speech clear. Skin no rash Objective Data Active Medications Acetaminophen (Acetaminophen 325 Mg Tablet) 650 mg PO Q6H PRN PRN Reason: Pain, Mild (Pain Scale 1-3) Allopurinol (Allopurinol 300 Mg Tablet) 300 mg PO DAILY [facility] Last Admin: 04/18/21 08:32 Dose: 300 mg Documented by: SATHYA Amlodipine Besylate (Amlodipine Besylate 5 Mg Tablet) 5 mg PO DAILY [facility]; Protocol Last Admin: 04/18/21 08:32 Dose: 5 mg Documented by: SATHYA Atorvastatin Calcium (Atorvastatin Calcium 10 Mg Tablet) 10 mg PO DAILY [facility] Last Admin: 04/18/21 08:32 Dose: 10 mg Documented by: SATHYA Clonidine HCl (Clonidine Hcl 0.1 Mg Tablet) 0.1 mg PO DAILY [facility]; Protocol Last Admin: 04/18/21 08:32 Dose: 0.1 mg Documented by: SATHYA Dextrose (Dextrose 50 % 25 Gm/50 Ml Vial) 25 gm IVPUSH Q15M PRN; Protocol PRN Reason: per Hypoglycemia Standing Ord. Docusate Sodium (Docusate Sodium 100 Mg Capsule) 100 mg PO DAILY PRN PRN Reason: Constipation Glucose (Glucose Gel 15 Gm Gel..Gram.) 15 gm PO Q15M PRN; Protocol PRN Reason: per Hypoglycemia Standing Ord. Heparin Sodium (Porcine) (Heparin Sodium,Porcine 5,000 Unit/Ml Vial) 5,000 unit SUBCUT Q12H [facility] Last Admin: 04/18/21 00:19 Dose: 5,000 unit Documented by: SUSAN Ceftriaxone Sodium 1 gm/ (Sodium Chloride) 50 mls @ 100 mls/hr IV Q24H [facility] Last Infusion: 04/17/21 21:21 Dose: 0 mls/hr Documented by: SUSAN Azithromycin 500 mg/ Sodium (Chloride) 250 mls @ 125 mls/hr IV Q24H [facility] Last Infusion: 04/18/21 04:00 Dose: 0 mls/hr Documented by: SUSAN Insulin Human Lispro (Insulin Lispro 100 Unit/Ml 3 Ml Vial) 0 unit SUBCUT QIDACHS [facility]; Protocol Last Admin: 04/18/21 12:01 Dose: Not Given Documented by: SATHYA Non-Admin Reason: Patient Refused Lisinopril (Lisinopril 5 Mg Tablet) 5 mg PO DAILY [facility]; Protocol Last Admin: 04/18/21 08:32 Dose: 5 mg Documented by: SATHYA Multivitamins (B-Complex With Vitamin C Tablet) 1 tab PO DAILY [facility] Last Admin: 04/18/21 08:31 Dose: 1 tab Documented by: SATHYA Multivitamins/Vitamin C (Multivitamin Tablet) 1 tab PO DAILY [facility] Last Admin: 04/18/21 08:32 Dose: 1 tab Documented by: SATHYA Ondansetron HCl (Ondansetron Hcl 4 Mg/2 Ml Vial) 4 mg IVPUSH Q8H PRN PRN Reason: Nausea and Vomiting Pharmacy Consult (Consult Rx Perform Med Rec) 1 each MISCELLANE ONCE PRN PRN Reason: Consult order Sodium Chloride (0.9 % Sodium Chloride Flush 3 Ml Syringe) 3 ml IVFLUSH QSHIFT [facility] Last Admin: 04/18/21 08:31 Dose: 3 ml Documented by: SATHYA Timolol Maleate (Timolol Maleate Xe 0.25 % Gel 5 Ml Drbtl) 1 drop EYE-BOTH DAILY [facility] Zolpidem Tartrate (Zolpidem Tartrate 5 Mg Tablet) 5 mg PO BEDTIME PRN PRN Reason: Insomnia Last Admin: 04/17/21 21:23 Dose: 5 mg Documented by: SUSAN Labs CBC & Chem 7: 04/18/21 07:53 04/18/21 07:53 Labs: Laboratory Results - last 24 hr 04/17/21 04/17/21 04/17/21 07:55 12:25 12:25 MCV MCH MCHC RDW Plt Count MPV Immature Gran % (Auto) Neut % (Auto) Lymph % (Auto) [place] % (Auto) Eos % (Auto) Baso % (Auto) Lymph # (Auto) [place] # (Auto) Eos # (Auto) Baso # (Auto) Abs Immat Gran (auto) Absolute Neuts (auto) Absolute Nucleated RBC Nucleated RBC % (auto) Anion Gap Estim Creat Clear Calc Estimated GFR POC Glucose Random Glucose 143 H Calcium Lactate Dehydrogenase 167 Total Protein 6.2 L Carcinoembryonic Ag 48.70 Urine Osmolality Peritoneal WBC 0.720 Peritoneal RBC < 0.002 Periton Neutrophils 15 Periton Lymphocytes 6 Peritoneal Monocytes 2 Peritoneal Other Cells 77 Peritoneal Tot Protein 1.8 Peritoneal LDH 71 Peritoneal Glucose 139 04/17/21 04/17/21 04/18/21 16:12 20:10 07:05 MCV MCH MCHC RDW Plt Count MPV Immature Gran % (Auto) Neut % (Auto) Lymph % (Auto) [place] % (Auto) Eos % (Auto) Baso % (Auto) Lymph # (Auto) [place] # (Auto) Eos # (Auto) Baso # (Auto) Abs Immat Gran (auto) Absolute Neuts (auto) Absolute Nucleated RBC Nucleated RBC % (auto) Anion Gap Estim Creat Clear Calc Estimated GFR POC Glucose 123 H 153 H 111 Random Glucose Calcium Lactate Dehydrogenase Total Protein Carcinoembryonic Ag Urine Osmolality Peritoneal WBC Peritoneal RBC Periton Neutrophils Periton Lymphocytes Peritoneal Monocytes Peritoneal Other Cells Peritoneal Tot Protein Peritoneal LDH Peritoneal Glucose 04/18/21 04/18/21 04/18/21 07:53 07:53 10:44 MCV 90.8 MCH 33.1 H MCHC 36.4 H RDW 15.1 Plt Count 151 L MPV 10.7 Immature Gran % (Auto) 2.0 H Neut % (Auto) 82.6 H Lymph % (Auto) 7.3 L [place] % (Auto) 7.6 Eos % (Auto) 0.3 Baso % (Auto) 0.2 Lymph # (Auto) 1.2 [place] # (Auto) 1.2 Eos # (Auto) 0.1 Baso # (Auto) 0.0 Abs Immat Gran (auto) 0.32 H Absolute Neuts (auto) 13.5 H Absolute Nucleated RBC 0.000 Nucleated RBC % (auto) 0.0 Anion Gap 13 Estim Creat Clear Calc 193.3 Estimated GFR > 60 POC Glucose 153 H Random Glucose 114 Calcium 8.3 L Lactate Dehydrogenase Total Protein Carcinoembryonic Ag Urine Osmolality Peritoneal WBC Peritoneal RBC Periton Neutrophils Periton Lymphocytes Peritoneal Monocytes Peritoneal Other Cells Peritoneal Tot Protein Peritoneal LDH Peritoneal Glucose 04/18/21 10:55 MCV MCH MCHC RDW Plt Count MPV Immature Gran % (Auto) Neut % (Auto) Lymph % (Auto) [place] % (Auto) Eos % (Auto) Baso % (Auto) Lymph # (Auto) [place] # (Auto) Eos # (Auto) Baso # (Auto) Abs Immat Gran (auto) Absolute Neuts (auto) Absolute Nucleated RBC Nucleated RBC % (auto) Anion Gap Estim Creat Clear Calc Estimated GFR POC Glucose Random Glucose Calcium Lactate Dehydrogenase Total Protein Carcinoembryonic Ag Urine Osmolality 486 Peritoneal WBC Peritoneal RBC Periton Neutrophils Periton Lymphocytes Peritoneal Monocytes Peritoneal Other Cells Peritoneal Tot Protein Peritoneal LDH Peritoneal Glucose Microbiology Microbiology Results: Microbiology 04/17/21 12:25 Gram Stain - Final Ascites Fluid Routine Culture - Preliminary No growth to date. Anaerobic Culture - Preliminary No growth to date. 04/16/21 20:58 Blood Culture - Preliminary Blood - Venous No growth after 24 hours. 04/16/21 20:56 Blood Culture - Preliminary Blood - Venous No growth after 24 hours. Assessment and Plan (1) Pancreatic cancer: Status: Acute (2) Pneumonia: Status: Acute (3) Metastatic disease: Status: Acute (4) Hyponatremia: Status: Acute (5) Lactic acidosis: Status: Acute Assessment and Plan: 61-year-old male with past medical history of hypertension, diabetes her recent pancreatitis secondary to alcohol abuse presents to the hospital with abnormal but labs with CT abdomen and chest showing concern for metastatic disease and pancreatic cancer # pancreatic lesion concerning for pancreatic cancer with concern for metastatic disease No abdominal pain despite elevated lipase, CT abdomen showed metastatic lesion to multiple places including lungs, liver, adrenal gland ?? CA 19-9, CA 125 pending Status post paracentesis 2 L of fluid were removed, cytology pending, Gram stain culture sensitivity pending Discussed plan with patient and at bedside he will undergo liver biopsy on Tuesday INR 1.5 will give vitamin K 5 mg daily Case discussed with both Dr. Menendez and Dr. Fuentes, they agree with above plan. # Rt base pneumonia - shortness of breath and cough improving, blood cultures x2 negative WBC trending down no fever chills, continue IV antibiotics day 3, follow clinical course # hyponatremia - likely a SIADH case discussed with Nephrology , sodium remains low 126, place on 1.5 L fluid restriction, follow BMP # lactic acidosis - unclear etiology,resolved after IV fluids # hypertension - stable - continue home medications of amlodipine and lisinopril # diabetes - blood sugars stable 153, hold metformin, continue low-dose sliding scale insulin - diabetic diet DVT prophylaxis:? Heparin subQ Quality Stroke Does the patient have a stroke diagnosis?: No VTE Prior VTE?: No VTE Risk Level:: Medical - moderate - high VTE Device Contraindication: Treatment Not Indicated VTE Drug Contraindication: N/A - Med Ordered
--- NOTE | 2021-04-18 13:40 | P.PNNP_ITS ---
Subjective Subjective Date of Service: 04/18/21 Interval history: no complaints Na remains stable but unchanged 125-126meq/L since admission Physical Exam Vital Signs: Vital Signs: Last Vital Signs Temp 96.2 F L 04/18/21 08:00 Pulse 95 04/18/21 08:00 Resp 18 04/18/21 08:00 BP 128/85 04/18/21 08:00 Pulse Ox 96 04/18/21 08:00 Body Mass Index 30.9 Const: General: no acute distress Eyes: EOM: EOMs intact bilaterally Resp: Auscultation: diminished lung sounds Cardio: Rate: regular rate GI: Palpation (GI): Soft to palpation Neuro: General: moves all extremities Objective Data Labs CBC & Chem 7: 04/18/21 07:53 04/18/21 07:53 Labs: Laboratory Results - last 24 hr 04/17/21 04/17/21 04/17/21 07:55 12:25 12:25 WBC RBC Hgb Hct MCV MCH MCHC RDW Plt Count MPV Immature Gran % (Auto) Neut % (Auto) Lymph % (Auto) [place] % (Auto) Eos % (Auto) Baso % (Auto) Lymph # (Auto) [place] # (Auto) Eos # (Auto) Baso # (Auto) Abs Immat Gran (auto) Absolute Neuts (auto) Absolute Nucleated RBC Nucleated RBC % (auto) Sodium Potassium Chloride Carbon Dioxide Anion Gap BUN Creatinine Estim Creat Clear Calc Estimated GFR POC Glucose Random Glucose 143 H Calcium Lactate Dehydrogenase 167 Total Protein 6.2 L Carcinoembryonic Ag 48.70 Urine Osmolality Peritoneal WBC 0.720 Peritoneal RBC < 0.002 [place] Neutrophils 15 [place]iton Lymphocytes 6 Peritoneal Monocytes 2 Peritoneal Other Cells 77 Peritoneal Tot Protein 1.8 Peritoneal LDH 71 Peritoneal Glucose 139 04/17/21 04/17/21 04/18/21 16:12 20:10 07:05 WBC RBC Hgb Hct MCV MCH MCHC RDW Plt Count MPV Immature Gran % (Auto) Neut % (Auto) Lymph % (Auto) [place] % (Auto) Eos % (Auto) Baso % (Auto) Lymph # (Auto) [place] # (Auto) Eos # (Auto) Baso # (Auto) Abs Immat Gran (auto) Absolute Neuts (auto) Absolute Nucleated RBC Nucleated RBC % (auto) Sodium Potassium Chloride Carbon Dioxide Anion Gap BUN Creatinine Estim Creat Clear Calc Estimated GFR POC Glucose 123 H 153 H 111 Random Glucose Calcium Lactate Dehydrogenase Total Protein Carcinoembryonic Ag Urine Osmolality Peritoneal WBC Peritoneal RBC Periton Neutrophils Periton Lymphocytes Peritoneal Monocytes Peritoneal Other Cells Peritoneal Tot Protein Peritoneal LDH Peritoneal Glucose 04/18/21 04/18/21 04/18/21 07:53 07:53 10:44 WBC 16.4 H RBC 3.60 L Hgb 11.9 L Hct 32.7 L MCV 90.8 MCH 33.1 H MCHC 36.4 H RDW 15.1 Plt Count 151 L MPV 10.7 Immature Gran % (Auto) 2.0 H Neut % (Auto) 82.6 H Lymph % (Auto) 7.3 L [place] % (Auto) 7.6 Eos % (Auto) 0.3 Baso % (Auto) 0.2 Lymph # (Auto) 1.2 [place] # (Auto) 1.2 Eos # (Auto) 0.1 Baso # (Auto) 0.0 Abs Immat Gran (auto) 0.32 H Absolute Neuts (auto) 13.5 H Absolute Nucleated RBC 0.000 Nucleated RBC % (auto) 0.0 Sodium 126 L Potassium 4.3 Chloride 100 Carbon Dioxide 17 L Anion Gap 13 BUN 8 L Creatinine 0.55 Estim Creat Clear Calc 193.3 Estimated GFR > 60 POC Glucose 153 H Random Glucose 114 Calcium 8.3 L Lactate Dehydrogenase Total Protein Carcinoembryonic Ag Urine Osmolality Peritoneal WBC Peritoneal RBC Periton Neutrophils Periton Lymphocytes Peritoneal Monocytes Peritoneal Other Cells Peritoneal Tot Protein Peritoneal LDH Peritoneal Glucose 04/18/21 10:55 WBC RBC Hgb Hct MCV MCH MCHC RDW Plt Count MPV Immature Gran % (Auto) Neut % (Auto) Lymph % (Auto) [place] % (Auto) Eos % (Auto) Baso % (Auto) Lymph # (Auto) [place] # (Auto) Eos # (Auto) Baso # (Auto) Abs Immat Gran (auto) Absolute Neuts (auto) Absolute Nucleated RBC Nucleated RBC % (auto) Sodium Potassium Chloride Carbon Dioxide Anion Gap BUN Creatinine Estim Creat Clear Calc Estimated GFR POC Glucose Random Glucose Calcium Lactate Dehydrogenase Total Protein Carcinoembryonic Ag Urine Osmolality 486 Peritoneal WBC Peritoneal RBC Periton Neutrophils Periton Lymphocytes Peritoneal Monocytes Peritoneal Other Cells Peritoneal Tot Protein Peritoneal LDH Peritoneal Glucose Microbiology Microbiology Results: Microbiology 04/17/21 12:25 Ascites Fluid Gram Stain - Final 04/17/21 12:25 Ascites Fluid Routine Culture - Preliminary No growth to date. 04/17/21 12:25 Ascites Fluid Anaerobic Culture - Preliminary No growth to date. 04/16/21 20:58 Blood - Venous Blood Culture - Preliminary No growth after 24 hours. 04/16/21 20:56 Blood - Venous Blood Culture - Preliminary No growth after 24 hours. Procedures Date of Service Date of Service: 04/18/21 Assessment & Plan Assessment and plan (1) Pancreatic cancer: Status: Acute (2) Pneumonia: Status: Acute (3) Metastatic disease: Status: Acute (4) Hyponatremia: Status: Acute (5) Lactic acidosis: Status: Acute Assessment and Plan: mr. Jose High is a 61-year-old male with past medical history of hypertension, diabetes her recent pancreatitis secondary to alcohol abuse presents to the hospital with abnormal labs with CT abdomen and chest showing concern for metastatic disease and pancreatic cancer. hyponatremia 125-126meq/L iwth Uosm 486. 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 I doubt a hypotonic intake syndrome like beer potomania given the Uosm as high as 486. Plan: - fluid restriction will not be enough - lets start Urea 30g BID - daily to BId labs is fine - repeat Livia and Uosm (ordered) - fluid restriction is paramount Time Spent With Patient Time: Total time spent is greater than 50% in coordination of care (as documented) at patient's floor/unit and/or counseling patient: Progress Note: Quality Stroke Does the patient have a stroke diagnosis?: No
[2021-04-18] MEDS: Phytonadione (Vit K1) Oral 10 MG/ML AMPUL 5 MG PO (13:50)
[2021-04-18 14:26] LABS: Creatinine Urine 116.37 mg/dL; Sodium Urine Random < 20.0 mmol/L
[2021-04-18 16:00] VITALS: BP 112/72; PULSE 88; RESP 17; TEMP 36.2; O2SAT 96
[2021-04-18 16:24] LABS: Glucose, Whole Blood 127 mg/dL (60-115)
[2021-04-18 19:13] VITALS: BP 110/65; PULSE 90; RESP 17; TEMP 36.2; O2SAT 95
[2021-04-18 20:14] LABS: Glucose, Whole Blood 122 mg/dL (60-115)
[2021-04-18] MEDS: cefTRIAXone sodium 1 GM in 0.9 % Sodium Chloride 50 ML IV (21:17)
[2021-04-18] MEDS: Zolpidem Tartrate 5 MG TABLET PO (21:21)
[2021-04-18 23:34] VITALS: BP 130/78; PULSE 88; RESP 18; TEMP 37.2; O2SAT 94
[2021-04-19] MEDS: 0.9 % Sodium Chloride Flush 3 ML SYRINGE IVFLUSH ×4 (00:16→23:11)
[2021-04-19] MEDS: Heparin Sodium,Porcine 5,000 UNIT/ML VIAL 5000 UNIT SUBCUT ×2 (03:16→14:35)
[2021-04-19] MEDS: Azithromycin 500 MG in 0.9 % Sodium Chloride 250 ML 125 MG IV (03:17)
[2021-04-19 03:33] VITALS: BP 117/75; PULSE 86; RESP 18; TEMP 37.1; O2SAT 94
[2021-04-19 07:20] LABS: Glucose, Whole Blood 103 mg/dL (60-115)
[2021-04-19 07:36] VITALS: BP 105/76; PULSE 91; RESP 18; TEMP 36.6; O2SAT 94
[2021-04-19] MEDS: cloNIDine HCL 0.1 MG TABLET PO (08:49)
[2021-04-19] MEDS: Urea 15 GM POWDER 30 GM PO ×2 (08:49→21:00)
[2021-04-19] MEDS: amLODIPine Besylate 5 MG TABLET PO (08:50)
[2021-04-19] MEDS: allopurinoL 300 MG TABLET PO (08:50)
[2021-04-19] MEDS: Atorvastatin Calcium 10 MG TABLET PO (08:50)
[2021-04-19] MEDS: lisinopriL 5 MG TABLET PO (08:50)
[2021-04-19] MEDS: Phytonadione (Vit K1) Oral 10 MG/ML AMPUL 5 MG PO (08:50)
[2021-04-19] MEDS: Multivitamin TABLET 1 TAB PO (08:50)
--- NOTE | 2021-04-19 09:41 | HO.PM.IMPN ---
Subjective Subjective Date of Service: 04/19/21 Interval History: Being followed for pneumonia, hyponatremia and multiple metastatic lesions Denies pain, shortness of breath and cough has improved, no acute issues overnight Review of Systems General no headache no dizziness no fever chills.? CVS no chest pain, no palpitation.? Respiratory? cough, no sob.? Gastrointestinal no nausea no vomiting, no abdominal pain Review of Systems: Yes all other systems are reviewed and are negative Physical Exam Vital Signs: Vital Signs: Last Vital Signs Temp 97.8 F 04/19/21 07:36 Pulse 91 04/19/21 07:36 Resp 18 04/19/21 07:36 BP 105/76 04/19/21 07:36 Pulse Ox 94 04/19/21 07:36 Body Mass Index 30.9 General resting co mfortably in no ac anderson distress.? Nahomi rt oriented x3? Ne ck supple no JVD. CVS? regular rate rhythm, Respirator y lungs clear to a uscultation, no re spiratory distress , no wheeze, no rh onchi. Gastrointes tinal abdomen soft , nontender, bowel sounds audible, n o guarding , no ri gidity. Extremitie s no edema. Neuro nonfocal , moving all 4 extremity sp eech clear. Skin n o rash Objective Data Active Medications Acetaminophen (Acetaminophen 325 Mg Tablet) 650 mg PO Q6H PRN PRN Reason: Pain, Mild (Pain Scale 1-3) Allopurinol (Allopurinol 300 Mg Tablet) 300 mg PO DAILY [facility] Last Admin: 04/19/21 08:50 Dose: 300 mg Documented by: SATHYA Amlodipine Besylate (Amlodipine Besylate 5 Mg Tablet) 5 mg PO DAILY [facility]; Protocol Last Admin: 04/19/21 08:50 Dose: 5 mg Documented by: SATHYA Atorvastatin Calcium (Atorvastatin Calcium 10 Mg Tablet) 10 mg PO DAILY [facility] Last Admin: 04/19/21 08:50 Dose: 10 mg Documented by: SATHYA Clonidine HCl (Clonidine Hcl 0.1 Mg Tablet) 0.1 mg PO DAILY [facility]; Protocol Last Admin: 04/19/21 08:49 Dose: 0.1 mg Documented by: SATHYA Dextrose (Dextrose 50 % 25 Gm/50 Ml Vial) 25 gm IVPUSH Q15M PRN; Protocol PRN Reason: per Hypoglycemia Standing Ord. Docusate Sodium (Docusate Sodium 100 Mg Capsule) 100 mg PO DAILY PRN PRN Reason: Constipation Glucose (Glucose Gel 15 Gm Gel..Gram.) 15 gm PO Q15M PRN; Protocol PRN Reason: per Hypoglycemia Standing Ord. Heparin Sodium (Porcine) (Heparin Sodium,Porcine 5,000 Unit/Ml Vial) 5,000 unit SUBCUT Q12H [facility] Last Admin: 04/19/21 03:16 Dose: 5,000 unit Documented by: SARA Ceftriaxone Sodium 1 gm/ (Sodium Chloride) 50 mls @ 100 mls/hr IV Q24H [facility] Last Infusion: 04/18/21 21:49 Dose: 0 mls/hr Documented by: ЕЛЕНАCA Azithromycin 500 mg/ Sodium (Chloride) 250 mls @ 125 mls/hr IV Q24H [facility] Last Infusion: 04/19/21 05:35 Dose: 122 mls/hr Documented by: SARA Insulin Human Lispro (Insulin Lispro 100 Unit/Ml 3 Ml Vial) 0 unit SUBCUT QIDACHS [facility]; Protocol Last Admin: 04/19/21 08:44 Dose: Not Given Documented by: SATHYA Non-Admin Reason: No Insulin Coverage Lisinopril (Lisinopril 5 Mg Tablet) 5 mg PO DAILY [facility]; Protocol Last Admin: 04/19/21 08:50 Dose: 5 mg Documented by: SATHYA Multivitamins (B-Complex With Vitamin C Tablet) 1 tab PO DAILY [facility] Last Admin: 04/19/21 08:50 Dose: 1 tab Documented by: SATHYA Multivitamins/Vitamin C (Multivitamin Tablet) 1 tab PO DAILY [facility] Last Admin: 04/19/21 08:50 Dose: 1 tab Documented by: SATHYA Ondansetron HCl (Ondansetron Hcl 4 Mg/2 Ml Vial) 4 mg IVPUSH Q8H PRN PRN Reason: Nausea and Vomiting Pharmacy Consult (Consult Rx Perform Med Rec) 1 each MISCELLANE ONCE PRN PRN Reason: Consult order Phytonadione (Phytonadione (Vit K1) Oral 10 Mg/Ml Ampul) 5 mg PO DAILY [facility] Stop: 04/20/21 09:01 Last Admin: 04/19/21 08:50 Dose: 5 mg Documented by: HO.RAEJ Sodium Chloride (0.9 % Sodium Chloride Flush 3 Ml Syringe) 3 ml IVFLUSH QSHIFT [facility] Last Admin: 04/19/21 08:50 Dose: 3 ml Documented by: SATHYA Timolol Maleate (Timolol Maleate Xe 0.25 % Gel 5 Ml Drbtl) 1 drop EYE-BOTH DAILY [facility] Urea (Urea 15 Gm Powder) 30 gm PO BID [facility] Last Admin: 04/19/21 08:49 Dose: 30 gm Documented by: SATHYA Zolpidem Tartrate (Zolpidem Tartrate 5 Mg Tablet) 5 mg PO BEDTIME PRN PRN Reason: Insomnia Last Admin: 04/18/21 21:21 Dose: 5 mg Documented by: NARCISO Labs CBC & Chem 7: 04/18/21 07:53 04/18/21 07:53 Labs: Laboratory Results - last 24 hr 04/18/21 04/18/21 04/18/21 10:44 10:55 10:55 POC Glucose 153 H Urine Osmolality 486 Ur Random Sodium < 20.0 Urine Creatinine 116.37 04/18/21 04/18/21 04/19/21 16:16 20:08 07:14 POC Glucose 127 H 122 H 103 Urine Osmolality Ur Random Sodium Urine Creatinine Microbiology Microbiology Results: Microbiology 04/17/21 12:25 Gram Stain - Final Ascites Fluid Routine Culture - Final No growth after 2 days Anaerobic Culture - Preliminary No growth to date. 04/16/21 20:58 Blood Culture - Preliminary Blood - Venous No growth after 48 hours. 04/16/21 20:56 Blood Culture - Preliminary Blood - Venous No growth after 48 hours. Assessment and Plan (1) Pancreatic cancer: Status: Acute (2) Pneumonia: Status: Acute (3) Metastatic disease: Status: Acute (4) Hyponatremia: Status: Acute (5) Lactic acidosis: Status: Acute (6) Pulmonary nodules: Status: Acute Assessment and Plan: 61-year-old male with past medical history of hypertension, diabetes her recent pancreatitis secondary to alcohol abuse presents to the hospital with abnormal but labs with CT abdomen and chest showing concern for metastatic disease and pancreatic cancer # pancreatic lesion concerning for pancreatic cancer with concern for metastatic disease ?? No abdominal pain despite elevated lipase, CT abdomen showed metastatic lesion to multiple places including lungs, liver, adrenal gland ?? CA 19-9, CA 125 pending ?? Status post paracentesis 2 L of fluid were removed, cytology pending, Gram stain culture sensitivity negative, pleural fluid albumin not collected therefore cannot calculate SAAG, low cell count and normal g stain culture sensitivity suggestive of no infection. ?? Discussed plan with patient and at bedside he will undergo liver biopsy on 04/20 (Tuesday), will keep him NPO after midnight ?? INR 1.5 ordered vitamin K 5 mg daily x 3 days ?? Case discussed with both Dr. Menendez and Dr. Fuentes,04/17, they agree with above plan. # Rt base pneumonia - shortness of breath and cough improving, blood cultures x2 negative WBC trending down no fever chills, continue IV ceft/Azithro day 4/5, follow clinical course # hyponatremia - likely SIADH case discussed with Nephrology , sodium remains low 126, placed on 1.5 L fluid restriction,added urea 30mg bid as per nephro, follow BMP # lactic acidosis - unclear etiology,resolved after IV fluids # hypertension - stable - continue home medications of amlodipine and lisinopril # diabetes - blood sugars stable hold metformin, continue low-dose sliding scale insulin - diabetic diet DVT prophylaxis:? Heparin subQ Quality Stroke Does the patient have a stroke diagnosis?: No VTE Prior VTE?: No VTE Risk Level:: Medical - moderate - high VTE Device Contraindication: Treatment Not Indicated VTE Drug Contraindication: N/A - Med Ordered
[2021-04-19 11:12] LABS: Glucose, Whole Blood 137 mg/dL (60-115)
[2021-04-19 11:45] VITALS: BP 116/75; PULSE 92; RESP 18; TEMP 36.2; O2SAT 92
[2021-04-19 15:31] VITALS: BP 92/54; PULSE 88; RESP 15; TEMP 37.1; O2SAT 95
--- NOTE | 2021-04-19 16:29 | P.PNNP_ITS ---
Subjective Subjective Date of Service: 04/19/21 Interval history: Na and Cr stable Started Urea just yesterday Physical Exam Vital Signs: Vital Signs: Last Vital Signs Temp 98.8 F 04/19/21 15:31 Pulse 88 04/19/21 15:31 Resp 15 04/19/21 15:31 BP 92/54 L 04/19/21 15:31 Pulse Ox 95 04/19/21 15:31 Body Mass Index 30.9 Const: General: no acute distress Eyes: EOM: EOMs intact bilaterally Resp: Auscultation: diminished lung sounds Cardio: Rate: regular rate GI: Palpation (GI): Soft to palpation Neuro: General: moves all extremities Objective Data Labs CBC & Chem 7: 04/18/21 07:53 04/18/21 07:53 Labs: Laboratory Results - last 24 hr 04/18/21 04/19/21 04/19/21 20:08 07:14 11:07 POC Glucose 122 H 103 137 H Microbiology Microbiology Results: Microbiology 04/17/21 12:25 Ascites Fluid Gram Stain - Final 04/17/21 12:25 Ascites Fluid Routine Culture - Final No growth after 2 days 04/17/21 12:25 Ascites Fluid Anaerobic Culture - Preliminary No growth to date. 04/16/21 20:58 Blood - Venous Blood Culture - Preliminary No growth after 48 hours. 04/16/21 20:56 Blood - Venous Blood Culture - Preliminary No growth after 48 hours. Procedures Date of Service Date of Service: 04/19/21 Assessment & Plan Assessment and plan (1) Pancreatic cancer: Status: Acute (2) Pneumonia: Status: Acute (3) Metastatic disease: Status: Acute (4) Hyponatremia: Status: Acute (5) Lactic acidosis: Status: Acute Assessment and Plan: mr. Jose High is a 61-year-old male with past medical history of h ypertension, diabetes her recent pancreatitis secondary to alcohol abuse presents to the hospital with abnormal labs with CT abdomen and chest showing concern for metastatic disease and pancreatic cancer. hyponatremia 125-126meq/L iwth Uosm 486. 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 I doubt a hypotonic intake syndrome like beer potomania given the Uosm as high as 486. Livia is <20, however patient did not respond to isotonic FLuid given Tuesday into Tuesday. ?Livia low due to liver disease? Plan: - fluid restriction will not be enough - c/w Urea 30g BID - Daily labs are fine - repeat Livia and Uosm (ordered) - fluid restriction is paramount Time Spent With Patient Time: Total time spent is greater than 50% in coordination of care (as d ocumented) at patient's floor/unit and/or counseling patient: Progress Note: Quality Stroke Does the patient have a stroke diagnosis?: No
[2021-04-19 17:09] LABS: Glucose, Whole Blood 107 mg/dL (60-115)
[2021-04-19 19:52] VITALS: BP 120/70; PULSE 93; RESP 18; TEMP 36.6; O2SAT 94
[2021-04-19 20:18] LABS: Glucose, Whole Blood 126 mg/dL (60-115)
[2021-04-19] MEDS: cefTRIAXone sodium 1 GM in 0.9 % Sodium Chloride 50 ML IV (21:00)
[2021-04-19 23:29] VITALS: BP 122/76; PULSE 91; RESP 16; TEMP 36.7; O2SAT 95
[2021-04-20] VITALS (9 sets, daily range): BP systolic 100–128; BP diastolic 64–78; PULSE 88–97; RESP 12–18; TEMP 36.1–37.2; O2SAT 94–95
[2021-04-20] MEDS: Azithromycin 500 MG in 0.9 % Sodium Chloride 250 ML 122 MG IV (02:54)
[2021-04-20 05:51] LABS: MANUAL DIFF FLAG NO
[2021-04-20 05:56] LABS: Basophils Percent Auto 0.2 % (0-2); Eosinophils Absolute Auto 0.1 X10*3/uL (0.0-0.4); Eosinophils Percent Auto 0.4 % (0-4); Hematocrit 33.3 % (42-52); Hemoglobin 11.9 g/dl (14.0-18.0); Imm Gran Abs Auto 0.19 X10*3/uL (0.00-0.03); Imm Gran Pct Auto 1.2 % (0.0-0.4); Lymphocytes Absolute Auto 1.4 X10*3/uL (1.2-4.9); Mean Corpuscular HGB Conc 35.7 g/dl (31.0-36.0); Mean Corpuscular Hemoglobin 32.2 pg (27.0-33.0); Mean Platelet Volume 10.1 fL (9.4-12.4); Monocytes Absolute Auto 1.2 X10*3/uL (0.1-1.2); Monocytes Percent Auto 7.8 % (2-11); Neutrophils Absolute Auto 12.7 X10*3/uL (2.0-8.3); Neutrophils Percent Auto 81.4 % (45-73); Platelet Count 193 X10*3/uL (160-400); Red Cell Distribution Width 15.6 % (11.0-16.0); White Blood Count 15.6 X10*3/uL (4.8-10.8)
[2021-04-20 06:23] LABS: Anion Gap 14 (12-20); Blood Urea Nitrogen 21 mg/dL (9-16); Calcium 8.8 mg/dL (8.4-10.2); Carbon Dioxide 20 mmol/L (22-29); Chloride 100 mmol/L (96-108); Creatinine Clr Calc Pharmacy 189.9; Estimated Glomerular Filt Rate > 60; Glucose Random 108 mg/dL (60-115); Potassium 4.1 mmol/L (3.3-5.1); Sodium 130 mmol/L (135-145)
[2021-04-20 07:28] LABS: Glucose, Whole Blood 111 mg/dL (60-115)
[2021-04-20 08:26] LABS: Procalcitonin 0.27 ng/mL
[2021-04-20] MEDS: 0.9 % Sodium Chloride Flush 3 ML SYRINGE IVFLUSH ×3 (08:37→21:03)
--- NOTE | 2021-04-20 09:47 | MHC.CLN ---
F/U DIET=DIABETIC 2200 KCAL. ADDED GLUCERNA 240 ML BID TO PROVIDE 474 KCAL, 20 G PROTEIN, 409 ML FREE WATER. 1500 ML FLUID RESTRICTION DUE TO HYPONATREMIA. REVIEW OF INTAKE SHOWS 25-100%. CONTINUE TO FOLLOW.
[2021-04-20 12:35] LABS: Glucose, Whole Blood 138 mg/dL (60-115)
--- NOTE | 2021-04-20 13:33 | HO.RADPN ---
RADIOLOGY Narrative Narrative: 4 20g core biopsies from left lobe liver lesion obtained. No complication.
--- NOTE | 2021-04-20 15:53 | HO.PM.IMPN ---
Subjective Subjective Date of Service: 04/20/21 Interval History: no fever no abd pain going for liver biopsy today cough improved Review of Systems Review of Systems: Yes all other systems are reviewed and are negative Physical Exam Vital Signs: Vital Signs: Last Vital Signs Temp 97.8 F 04/20/21 15:31 Pulse 95 04/20/21 15:31 Resp 18 04/20/21 15:31 BP 104/68 04/20/21 15:31 Pulse Ox 95 04/20/21 15:31 Body Mass Index 30.9 Gen: in no acute distress HEENT: sclera mildly icteric, moist mucus membranes Neck: supple Lungs: clear to auscultation bilaterally Heart: regular rate and rhythm, no murmurs Abd: soft, non-tender, non-distended Ext: no edema Skin: warm/well-perfused Neuro: alert and oriented x3, no focal findings Psych: appropriate affect Objective Data Active Medications Acetaminophen (Acetaminophen 325 Mg Tablet) 650 mg PO Q6H PRN PRN Reason: Pain, Mild (Pain Scale 1-3) Allopurinol (Allopurinol 300 Mg Tablet) 300 mg PO DAILY [facility] Last Admin: 04/20/21 08:37 Dose: Not Given Documented by: BONNIE Non-Admin Reason: Patient Refused Amlodipine Besylate (Amlodipine Besylate 5 Mg Tablet) 5 mg PO DAILY [facility]; Protocol Last Admin: 04/20/21 08:37 Dose: Not Given Documented by: BONNIE Non-Admin Reason: Patient Refused Atorvastatin Calcium (Atorvastatin Calcium 10 Mg Tablet) 10 mg PO DAILY [facility] Last Admin: 04/20/21 08:38 Dose: Not Given Documented by: BONNIE Non-Admin Reason: Patient Refused Clonidine HCl (Clonidine Hcl 0.1 Mg Tablet) 0.1 mg PO DAILY [facility]; Protocol Last Admin: 04/20/21 08:38 Dose: Not Given Documented by: BONNIE Non-Admin Reason: Patient Refused Dextrose (Dextrose 50 % 25 Gm/50 Ml Vial) 25 gm IVPUSH Q15M PRN; Protocol PRN Reason: per Hypoglycemia Standing Ord. Docusate Sodium (Docusate Sodium 100 Mg Capsule) 100 mg PO DAILY PRN PRN Reason: Constipation Glucose (Glucose Gel 15 Gm Gel..Gram.) 15 gm PO Q15M PRN; Protocol PRN Reason: per Hypoglycemia Standing Ord. Heparin Sodium (Porcine) (Heparin Sodium,Porcine 5,000 Unit/Ml Vial) 5,000 unit SUBCUT Q12H [facility] Last Admin: 04/20/21 14:08 Dose: Not Given Documented by: MENDY Non-Admin Reason: Off Unit: Surgery Ceftriaxone Sodium 1 gm/ (Sodium Chloride) 50 mls @ 100 mls/hr IV Q24H [facility] Last Infusion: 04/19/21 21:42 Dose: 0 mls/hr Documented by: KVNG Azithromycin 500 mg/ Sodium (Chloride) 250 mls @ 125 mls/hr IV Q24H [facility] Last Infusion: 04/20/21 05:09 Dose: 0 mls/hr Documented by: ALONSO Insulin Human Lispro (Insulin Lispro 100 Unit/Ml 3 Ml Vial) 0 unit SUBCUT QIDACHS [facility]; Protocol Last Admin: 04/20/21 11:54 Dose: Not Given Documented by: BONNIE Non-Admin Reason: Off Unit: Surgery Lisinopril (Lisinopril 5 Mg Tablet) 5 mg PO DAILY [facility]; Protocol Last Admin: 04/20/21 08:39 Dose: Not Given Documented by: BONNIE Non-Admin Reason: Patient Refused Multivitamins (B-Complex With Vitamin C Tablet) 1 tab PO DAILY [facility] Last Admin: 04/20/21 08:38 Dose: Not Given Documented by: BONNIE Non-Admin Reason: Patient Refused Multivitamins/Vitamin C (Multivitamin Tablet) 1 tab PO DAILY [facility] Last Admin: 04/20/21 08:39 Dose: Not Given Documented by: BONNIE Non-Admin Reason: Patient Refused Patient Own Medication (Timolol Maleate Xe 0.25 % Gel 5 Ml Drbtl) 1 each EYE-BOTH DAILY [facility] Ondansetron HCl (Ondansetron Hcl 4 Mg/2 Ml Vial) 4 mg IVPUSH Q8H PRN PRN Reason: Nausea and Vomiting Pharmacy Consult (Consult Rx Perform Med Rec) 1 each MISCELLANE ONCE PRN PRN Reason: Consult order Sodium Chloride (0.9 % Sodium Chloride Flush 3 Ml Syringe) 3 ml IVFLUSH QSHIFT [facility] Last Admin: 04/20/21 08:37 Dose: 3 ml Documented by: BONNIE Urea (Urea 15 Gm Powder) 30 gm PO BID [facility] Last Admin: 04/20/21 08:39 Dose: Not Given Documented by: BONNIE Non-Admin Reason: Patient Refused Zolpidem Tartrate (Zolpidem Tartrate 5 Mg Tablet) 5 mg PO BEDTIME PRN PRN Reason: Insomnia Last Admin: 04/18/21 21:21 Dose: 5 mg Documented by: NARCISO Labs CBC & Chem 7: 04/20/21 05:27 04/20/21 05:27 Labs: Laboratory Results - last 24 hr 04/17/21 04/19/21 04/19/21 07:55 17:04 20:13 MCV MCH MCHC RDW Plt Count MPV Immature Gran % (Auto) Neut % (Auto) Lymph % (Auto) [place] % (Auto) Eos % (Auto) Baso % (Auto) Lymph # (Auto) [place] # (Auto) Eos # (Auto) Baso # (Auto) Abs Immat Gran (auto) Absolute Neuts (auto) Absolute Nucleated RBC Nucleated RBC % (auto) Anion Gap Estim Creat Clear Calc Estimated GFR POC Glucose 107 126 H Random Glucose Calcium Alpha Fetoprotein 20.0 H Procalcitonin 04/20/21 04/20/21 04/20/21 05:27 05:27 05:27 MCV 90.0 MCH 32.2 MCHC 35.7 RDW 15.6 Plt Count 193 D MPV 10.1 Immature Gran % (Auto) 1.2 H Neut % (Auto) 81.4 H Lymph % (Auto) 9.0 L [place] % (Auto) 7.8 Eos % (Auto) 0.4 Baso % (Auto) 0.2 Lymph # (Auto) 1.4 [place] # (Auto) 1.2 Eos # (Auto) 0.1 Baso # (Auto) 0.0 Abs Immat Gran (auto) 0.19 H Absolute Neuts (auto) 12.7 H Absolute Nucleated RBC 0.000 Nucleated RBC % (auto) 0.0 Anion Gap 14 Estim Creat Clear Calc 189.9 Estimated GFR > 60 POC Glucose Random Glucose 108 Calcium 8.8 D Alpha Fetoprotein Procalcitonin 0.27 04/20/21 04/20/21 07:21 12:32 MCV MCH MCHC RDW Plt Count MPV Immature Gran % (Auto) Neut % (Auto) Lymph % (Auto) [place] % (Auto) Eos % (Auto) Baso % (Auto) Lymph # (Auto) [place] # (Auto) Eos # (Auto) Baso # (Auto) Abs Immat Gran (auto) Absolute Neuts (auto) Absolute Nucleated RBC Nucleated RBC % (auto) Anion Gap Estim Creat Clear Calc Estimated GFR POC Glucose 111 138 H Random Glucose Calcium Alpha Fetoprotein Procalcitonin Microbiology Microbiology Results: Microbiology 04/17/21 12:25 Gram Stain - Final Ascites Fluid Routine Culture - Final No growth after 2 days Anaerobic Culture - Preliminary No growth to date. Assessment and Plan (1) Pancreatic cancer: Status: Acute (2) Pneumonia: Status: Acute (3) Metastatic disease: Status: Acute (4) Hyponatremia: Status: Acute (5) Lactic acidosis: Status: Acute (6) Pulmonary nodules: Status: Acute Assessment and Plan: hospital d#5 61yo M with HTN, DM2, recent EtOH pancreatitis sent to hospital with abnormal labs found to have suspicious lesion in pancreas with lesions in liver, L adrenal gland, and lung concerning for metastatic disease, ascites # suspicious pancreatic neoplasm with likely metastases + ascites - cytology from paracentesis 04/17 pending, 2L removed - CA 19-9, CA-125 pending - US-guided core liver biopsy today - got 3d vitamin K for INR 1.5 - GI + Oncology consulted # portal venous thrombosis - likely due to CA, discuss AC with Oncology # hyponatremia - likely SIADH, improving on 1.5L/d fluid restriction + urea 30mg bid # pneumonia - IV ceftriaxone + azithromycin d#12/10 # lactic acidosis - resolved after IV fluids, not septic # hypertension - continue home medications of amlodipine and lisinopril # DM2 - blood sugars stable; hold metformin, continue low-dose sliding scale insulin - diabetic diet # VTE ppx - UFH # dispo - likely home tomorrow if Na continues to improve and no complications of biopsy; needs GI + Oncology f/u Quality Stroke Does the patient have a stroke diagnosis?: No VTE Prior VTE?: No VTE Risk Level:: Medical - moderate - high VTE Device Contraindication: Treatment Not Indicated VTE Drug Contraindication: N/A - Med Ordered
[2021-04-20 16:12] LABS: Glucose, Whole Blood 172 mg/dL (60-115)
[2021-04-20 17:57] LABS: Urea, Random Urine 760 mg/dL
[2021-04-20 18:42] LABS: CA-125 2315 U/mL (<35)
[2021-04-20 20:15] LABS: Glucose, Whole Blood 131 mg/dL (60-115)
[2021-04-20] MEDS: Urea 15 GM POWDER 30 GM PO (21:03)
[2021-04-20] MEDS: cefTRIAXone sodium 1 GM in 0.9 % Sodium Chloride 50 ML IV (21:03)
--- NOTE | 2021-04-20 22:14 | P.PNNP_ITS ---
Subjective Subjective Date of Service: 04/20/21 Interval history: Events noted. All recent data reviewed; liver biopsy today Physical Exam Vital Signs: Vital Signs: Last Vital Signs Temp 97.0 F 04/20/21 19:18 Pulse 94 04/20/21 19:18 Resp 18 04/20/21 19:18 BP 114/78 04/20/21 19:18 Pulse Ox 95 04/20/21 19:18 Body Mass Index 30.9 Const: General: no acute distress Eyes: EOM: EOMs intact bilaterally Neck: Neck: Yes supple Resp: Auscultation: diminished lung sounds Cardio: Rate: regular rate GI: Palpation (GI): Soft to palpation Neuro: General: moves all extremities Objective Data Labs CBC & Chem 7: 04/20/21 05:27 04/20/21 05:27 Labs: Laboratory Results - last 24 hr 04/17/21 04/17/21 04/18/21 07:55 07:55 10:55 WBC RBC Hgb Hct MCV MCH MCHC RDW Plt Count MPV Immature Gran % (Auto) Neut % (Auto) Lymph % (Auto) [place] % (Auto) Eos % (Auto) Baso % (Auto) Lymph # (Auto) [place] # (Auto) Eos # (Auto) Baso # (Auto) Abs Immat Gran (auto) Absolute Neuts (auto) Absolute Nucleated RBC Nucleated RBC % (auto) Sodium Potassium Chloride Carbon Dioxide Anion Gap BUN Creatinine Estim Creat Clear Calc Estimated GFR POC Glucose Random Glucose Calcium Alpha Fetoprotein 20.0 H CA 125 Antigen 2315 H Procalcitonin Ur Random Urea 760 04/20/21 04/20/21 04/20/21 05:27 05:27 05:27 WBC 15.6 H RBC 3.70 L Hgb 11.9 L Hct 33.3 L MCV 90.0 MCH 32.2 MCHC 35.7 RDW 15.6 Plt Count 193 D MPV 10.1 Immature Gran % (Auto) 1.2 H Neut % (Auto) 81.4 H Lymph % (Auto) 9.0 L [place] % (Auto) 7.8 Eos % (Auto) 0.4 Baso % (Auto) 0.2 Lymph # (Auto) 1.4 [place] # (Auto) 1.2 Eos # (Auto) 0.1 Baso # (Auto) 0.0 Abs Immat Gran (auto) 0.19 H Absolute Neuts (auto) 12.7 H Absolute Nucleated RBC 0.000 Nucleated RBC % (auto) 0.0 Sodium 130 L Potassium 4.1 Chloride 100 Carbon Dioxide 20 L Anion Gap 14 BUN 21 H D Creatinine 0.56 Estim Creat Clear Calc 189.9 Estimated GFR > 60 POC Glucose Random Glucose 108 Calcium 8.8 D Alpha Fetoprotein CA 125 Antigen Procalcitonin 0.27 Ur Random Urea 04/20/21 04/20/21 04/20/21 07:21 12:32 16:08 WBC RBC Hgb Hct MCV MCH MCHC RDW Plt Count MPV Immature Gran % (Auto) Neut % (Auto) Lymph % (Auto) [place] % (Auto) Eos % (Auto) Baso % (Auto) Lymph # (Auto) [place] # (Auto) Eos # (Auto) Baso # (Auto) Abs Immat Gran (auto) Absolute Neuts (auto) Absolute Nucleated RBC Nucleated RBC % (auto) Sodium Potassium Chloride Carbon Dioxide Anion Gap BUN Creatinine Estim Creat Clear Calc Estimated GFR POC Glucose 111 138 H 172 H Random Glucose Calcium Alpha Fetoprotein CA 125 Antigen Procalcitonin Ur Random Urea 04/20/21 20:08 WBC RBC Hgb Hct MCV MCH MCHC RDW Plt Count MPV Immature Gran % (Auto) Neut % (Auto) Lymph % (Auto) [place] % (Auto) Eos % (Auto) Baso % (Auto) Lymph # (Auto) [place] # (Auto) Eos # (Auto) Baso # (Auto) Abs Immat Gran (auto) Absolute Neuts (auto) Absolute Nucleated RBC Nucleated RBC % (auto) Sodium Potassium Chloride Carbon Dioxide Anion Gap BUN Creatinine Estim Creat Clear Calc Estimated GFR POC Glucose 131 H Random Glucose Calcium Alpha Fetoprotein CA 125 Antigen Procalcitonin Ur Random Urea Microbiology Microbiology Results: Microbiology 04/17/21 12:25 Ascites Fluid Gram Stain - Final 04/17/21 12:25 Ascites Fluid Routine Culture - Final No growth after 2 days 04/17/21 12:25 Ascites Fluid Anaerobic Culture - Preliminary No growth to date. 04/16/21 20:58 Blood - Venous Blood Culture - Preliminary No growth after 48 hours. 04/16/21 20:56 Blood - Venous Blood Culture - Preliminary No growth after 48 hours. Procedures Date of Service Date of Service: 04/20/21 Assessment & Plan Assessment and plan (1) Hyponatremia: Status: Acute Assessment and Plan: mr. Jose iHgh is a 61-year-old male with past medical history of hypertension, diabetes her recent pancreatitis secondary to alcohol abuse presents to the hospital with abnormal? labs with CT abdomen and chest showing concern for metastatic disease and pancreatic cancer. hyponatremia 125-126meq/L with Uosm 486. 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
[2021-04-21] MEDS: Azithromycin 500 MG in 0.9 % Sodium Chloride 250 ML 125 MG IV (02:31)
[2021-04-21 03:51] VITALS: BP 123/77; PULSE 88; RESP 16; TEMP 36.9; O2SAT 95
[2021-04-21 06:03] LABS: Hematocrit 32.9 % (42-52); Hemoglobin 11.8 g/dl (14.0-18.0); Mean Corpuscular HGB Conc 35.9 g/dl (31.0-36.0); Mean Corpuscular Hemoglobin 32.9 pg (27.0-33.0); Mean Corpuscular Volume 91.6 fL (80-98); Mean Platelet Volume 10.2 fL (9.4-12.4); Platelet Count 185 X10*3/uL (160-400); Red Blood Count 3.59 X10*6/uL (4.60-5.80); Red Cell Distribution Width 15.8 % (11.0-16.0); White Blood Count 18.5 X10*3/uL (4.8-10.8)
[2021-04-21 06:30] LABS: Anion Gap 11 (12-20); Blood Urea Nitrogen 26 mg/dL (9-16); Calcium 9.4 mg/dL (8.4-10.2); Carbon Dioxide 23 mmol/L (22-29); Chloride 102 mmol/L (96-108); Creatinine Clr Calc Pharmacy 196.9; Estimated Glomerular Filt Rate > 60; Glucose Random 125 mg/dL (60-115); Potassium 4.5 mmol/L (3.3-5.1); Sodium 131 mmol/L (135-145)
[2021-04-21 08:00] VITALS: BP 126/80; PULSE 93; RESP 18; TEMP 36.5; O2SAT 94
[2021-04-21 08:37] LABS: Glucose, Whole Blood 127 mg/dL (60-115)
[2021-04-21] MEDS: cloNIDine HCL 0.1 MG TABLET PO (08:45)
[2021-04-21] MEDS: allopurinoL 300 MG TABLET PO (08:45)
[2021-04-21] MEDS: Atorvastatin Calcium 10 MG TABLET PO (08:46)
[2021-04-21] MEDS: amLODIPine Besylate 5 MG TABLET PO (08:46)
[2021-04-21] MEDS: lisinopriL 5 MG TABLET PO (08:46)
[2021-04-21] MEDS: Multivitamin TABLET 1 TAB PO (08:46)
[2021-04-21] MEDS: Urea 15 GM POWDER 30 GM PO (08:47)
[2021-04-21] MEDS: 0.9 % Sodium Chloride Flush 3 ML SYRINGE IVFLUSH (08:47)
--- NOTE | 2021-04-21 12:10 | MHC.CM.PN ---
PATIENT TO RETURN HOME WITH OUTPATIENT ONCOLOGY FOLLOW UP. RN AWARE OF PLAN.
--- NOTE | 2021-04-21 12:47 | PM.DS ---
DS: Providers Provider Date of Service: 04/21/21 Date of admission: 04/16/21 23:58 Date of discharge: 04/21/21 Primary care physician: ANNETTE Mccollum- Consults: 04/17/21 02:02 Consult to Gastroenterology Routine Consulting Provider: Ben Duval Reason for consultation: CT showing poss. pancreatic cancer Has provider been notified: No 04/17/21 06:26 Consult to Hematology / Oncology Routine Consulting Provider: Alejandra Fuentes Reason for consultation: Metastatic disease Has provider been notified: No 04/17/21 06:29 Consult to Nephrology Routine Consulting Provider: [facility] Reason for consultation: hyponatremia Has provider been notified: No DS: Diagnosis Discharge Diagnosis (1) Pancreatic neoplasm: Status: Acute (2) Metastatic disease: Status: Acute (3) Hyponatremia: Status: Acute (4) Lactic acidosis: Status: Acute (5) Pneumonia: Status: Acute DS: Summary Hospital Course Hospital Course: From admission H+P by hospitalist Erma Dugan, 04/16/21: [61 year old male with past medical history] Of hypertension, hyperlipidemia, diabetes, alcohol use disorder who presents to the emergency department with who findings of abnormal labs.? Patient was discharged from the hospital on 03/27 after being treated for acute pancreatitis secondary to alcohol use.? Patient at that time was treated for acute pancreatitis and sent home after resolution of symptoms and oral intake.? He had a follow-up with his PCP today did outpatient blood work which showed multiple abnormalities including elevated lipase and sodium of 126, therefore patient was sent to the hospital for further evaluation. Patient himself denies any abdominal pain at this time, no nausea, no vomiting, no diarrhea or constipation, no urinary symptoms.? He denies any chest pain, but reports mild dyspnea on exertion that has been chronic.? Denies any lower extremity edema and no cough or sputum production.? He has? no headache or change in vision.? Reports that he has not drink alcohol since his admission in March.? He reports that he is doing well and is feeling well. No significant abnormal vitals with a temp of 98.4?, heart rate of 111, blood pressure 108/72, satting 97% on room air Labs are significant for 22.1 this a.m. which improved to 18.4, hemoglobin of 12.3, PT of 18.4, INR of 1.6, sodium of 124, potassium 4.9, glucose of 136, lactic acid of 2.7 that improved after fluids to 1.8, total bili of 3.3, AST of 71, ALT of 62, alk-phos of 531, lipase of 789 this a.m. which improved to 394 by ED admission. COVID-[address] and chest and chest showed multiple allergies including right-sided pleural effusion with bibasilar atelectasis versus infiltrate, increased when compared to previous study, bilateral pulmonary nodules measuring up to 0.8 cm concerning for metastatic disease, prominence of the pancreatic head with a lobulated cystic focus within the uncinate process and increased dilatation of the main pancreatic duct with increased adjacent inflammatory change suggesting pancreatic neoplastic lesion.? Multiple hepatic parenchymal lesions concerning for metastasis.? Mild to moderate abdominal ascites, prominent periportal and retroperitoneal lymph nodes concerning for metastatic disease, left adrenal nodule measuring 2.5 cm concerning for metastatic disease. The patient was found to have a suspicious lesion in pancreas with lesions in liver, L adrenal gland, and lung plus ascites concerning for metastatic disease. Gastroenterology and Oncology were consulted. He underwent paracentesis on 04/17; cytology is pending. US-guided core liver biopsy was done on 04/20; pathology is pending. CA 19.9 and CA-125 are pending. He was found to have portal venous thrombosis and was started on anticoagulation with eonxaparin to be continued indefinitely. He was found to be hyponatremic, likely due to SIADH. This improved with fluid restriction to 1.5L/d plus urea supplementation. He was treated with IV ceftriaxone and azithromycin for 5 days for pneumonia. He was discharged home with instructions to continue fluid restriction and urea, to continue therapeutic enoxaparin, and to follow up with Oncology for biopsy results and treatment plan for what is likely metastatic pancreatic cancer. He will also need to follow up with Nephrology and a future BMP order in 1 week was placed to monitor his sodium. Time Spent with Patient Time attestation: Total time spent providing and/or coordinating discharge services: Discharge coordination time: Greater than 30 minutes Quality: Stroke Does the patient have a stroke diagnosis?: No Physical Exam Vital Signs: Vital Signs: Last Vital Signs Temp 97.7 F 04/21/21 08:00 Pulse 93 09/14/21 08:00 Resp 18 04/21/21 08:00 BP 126/80 04/21/21 08:00 Pulse Ox 94 04/21/21 08:00 Body Mass Index 30.9 Gen: in no acute distress HEENT: sclera mildly icteric, moist mucus membranes Neck: supple Lungs: clear to auscultation bilaterally Heart: regular rate and rhythm, no murmurs Abd: soft, non-tender, non-distended Ext: no edema Skin: warm/well-perfused Neuro: alert and oriented x3, no focal findings Psych: appropriate affect DS: Data Data Completed and Pending Completed studies during hospitalization [Text1]: Laboratory Results WBC 18.5 X10*3/uL (4.8-10.8) H 04/21/21 05:42 RBC 3.59 X10*6/uL (4.60-5.80) L 04/21/21 05:42 Hgb 11.8 g/dl (14.0-18.0) L 04/21/21 05:42 Hct 32.9 % (42-52) L 04/21/21 05:42 MCV 91.6 fL (80-98) 04/21/21 05:42 MCH 32.9 pg (27.0-33.0) 04/21/21 05:42 MCHC 35.9 g/dl (31.0-36.0) 04/21/21 05:42 RDW 15.8 % (11.0-16.0) 04/21/21 05:42 Plt Count 185 X10*3/uL (160-400) 04/21/21 05:42 MPV 10.2 fL (9.4-12.4) 04/21/21 05:42 Immature Gran % (Auto) 1.2 % (0.0-0.4) H 04/20/21 05:27 Neut % (Auto) 81.4 % (45-73) H 04/20/21 05:27 Lymph % (Auto) 9.0 % (20-40) L 04/20/21 05:27 [place] % (Auto) 7.8 % (2-11) 04/20/21 05:27 Eos % (Auto) 0.4 % (0-4) 04/20/21 05:27 Baso % (Auto) 0.2 % (0-2) 04/20/21 05:27 Lymph # (Auto) 1.4 X10*3/uL (1.2-4.9) 04/20/21 05:27 [place] # (Auto) 1.2 X10*3/uL (0.1-1.2) 04/20/21 05:27 Eos # (Auto) 0.1 X10*3/uL (0.0-0.4) 04/20/21 05:27 Baso # (Auto) 0.0 X10*3/uL (0.0-0.2) 04/20/21 05:27 Abs Immat Gran (auto) 0.19 X10*3/uL (0.00-0.03) H 04/20/21 05:27 Absolute Neuts (auto) 12.7 X10*3/uL (2.0-8.3) H 04/20/21 05:27 Absolute Nucleated RBC 0.000 X10*3/uL (0.0-0.012) 04/21/21 05:42 Nucleated RBC % (auto) 0.0 /100WBC (0.0-0.2) 04/21/21 05:42 PT 18.4 SEC (9.9-13.0) H 04/16/21 20:57 INR 1.6 (0.9-1.1) H 04/16/21 20:57 APTT 33.9 SEC (24.1-38.0) 04/16/21 20:57 Sodium 131 mmol/L (135-145) L 04/21/21 05:42 Potassium 4.5 mmol/L (3.3-5.1) 04/21/21 05:42 Chloride 102 mmol/L (96-108) 04/21/21 05:42 Carbon Dioxide 23 mmol/L (22-29) 04/21/21 05:42 Anion Gap 11 (12-20) L 04/21/21 05:42 BUN 26 mg/dL (9-16) H 04/21/21 05:42 Creatinine 0.54 mg/dL (0.5-1.4) 04/21/21 05:42 Estim Creat Clear Calc 196.9 04/21/21 05:42 Estimated GFR > 60 04/21/21 05:42 POC Glucose 127 mg/dL (60-115) H 04/21/21 07:40 Random Glucose 125 mg/dL (60-115) H 04/21/21 05:42 Osmolality 265 mosm/kg (281-305) L 04/17/21 05:20 Lactic Acid 2.7 mmol/L (0.5-2.0) H* 04/16/21 20:56 Lactic Acid Fup @ 2Hr 1.8 mmol/L (0.5-2.0) 04/16/21 23:17 Calcium 9.4 mg/dL (8.4-10.2) D 04/21/21 05:42 Total Bilirubin 3.3 mg/dL (0.0-1.0) H 04/16/21 20:33 AST 71 U/L (5-37) H 04/16/21 20:33 ALT 62 U/L (0-40) H 04/16/21 20:33 Alkaline Phosphatase 531 U/L (39-117) H 04/16/21 20:33 Lactate Dehydrogenase 167 U/L (118-273) 04/17/21 07:55 B-Natriuretic Peptide 39 pg/mL (<100) 04/16/21 20:57 Total Protein 6.2 g/dL (6.5-8.0) L 04/17/21 07:55 Albumin 3.1 g/dL (3.5-5.0) L 04/16/21 20:33 Lipase 394 U/L (8-78) H 04/16/21 20:57 Alpha Fetoprotein 20.0 ng/mL (<6.1) H 04/17/21 07:55 Carcinoembryonic Ag 48.70 ng/mL 04/17/21 07:55 CA 125 Antigen 2315 U/mL (<35) H 04/17/21 07:55 Procalcitonin 0.27 ng/mL 04/20/21 05:27 Urine Osmolality 486 mosm/kg (373-1093) 04/18/21 10:55 Ur Random Sodium < 20.0 mmol/L 04/18/21 10:55 Ur Random Urea 760 mg/dL 04/18/21 10:55 Urine Creatinine 116.37 mg/dL 04/18/21 10:55 Peritoneal WBC 0.720 X10*3/uL 04/17/21 12:25 Peritoneal RBC < 0.002 X10*6/uL 04/17/21 12:25 Periton Neutrophils 15 % 04/17/21 12:25 Periton Lymphocytes 6 % 04/17/21 12:25 Peritoneal Monocytes 2 % 04/17/21 12:25 Peritoneal Other Cells 77 % 04/17/21 12:25 Peritoneal Tot Protein 1.8 04/17/21 12:25 Peritoneal LDH 71 04/17/21 12:25 Peritoneal Glucose 139 04/17/21 12:25 Coronavirus (PCR) NEGATIVE (Negative) 04/16/21 20:57 Influenza Type A (PCR) NEGATIVE (Negative) 04/16/21 20:57 Influenza Type B (PCR) NEGATIVE (Negative) 04/16/21 20:57 RSV RNA Qual (PCR) NEGATIVE (Negative) 04/16/21 20:57 Impressions Abdomen/Pelvis CT 04/16/21 20:17 IMPRESSION: 1. Small right-sided pleural effusion with bibasilar atelectasis versus infiltrates, increased when compared to the prior examination. Innumerable bilateral pulmonary nodules measuring up to 0.8 cm. Findings are concerning for metastatic disease. 2. Dilatation of the ascending thoracic aorta measuring up to 4.1 cm. Prominence of the main pulmonary arteries, which can be seen in the setting of pulmonary hypertension. 3. Prominence of the pancreatic head with a lobulated cystic focus within the uncinate process. Increasing dilatation of the main pancreatic duct with increasing adjacent inflammatory change. Findings are concerning for a pancreatic neoplastic lesion. Endoscopic ultrasound or abdominal MRI without and with contrast could help further evaluate. 4. Multiple hepatic parenchymal lesions, the largest of which is within the hepatic dome. Findings are concerning for hepatic parenchymal metastases. No intra- or extrahepatic biliary ductal dilatation. 5. [id number] abdominal ascites, new when compared to the prior examination. Stable prominent periportal and retroperitoneal lymph nodes, concerning for metastatic disease. 6. Redemonstration of a left adrenal nodule measuring up to 2.5 cm, concerning for a metastatic lesion. 7. Multiple bilateral hyper and hypodense renal parenchymal lesions are unchanged. Chest CT 04/16/21 20:17 IMPRESSION: 1. Small right-sided pleural effusion with bibasilar atelectasis versus infiltrates, increased when compared to the prior examination. Innumerable bilateral pulmonary nodules measuring up to 0.8 cm. Findings are concerning for metastatic disease. 2. Dilatation of the ascending thoracic aorta measuring up to 4.1 cm. Prominence of the main pulmonary arteries, which can be seen in the setting of pulmonary hypertension. 3. Prominence of the pancreatic head with a lobulated cystic focus within the uncinate process. Increasing dilatation of the main pancreatic duct with increasing adjacent inflammatory change. Findings are concerning for a pancreatic neoplastic lesion. Endoscopic ultrasound or abdominal MRI without and with contrast could help further evaluate. 4. Multiple hepatic parenchymal lesions, the largest of which is within the hepatic dome. Findings are concerning for hepatic parenchymal metastases. No intra- or extrahepatic biliary ductal dilatation. 5. [id number] abdominal ascites, new when compared to the prior examination. Stable prominent periportal and retroperitoneal lymph nodes, concerning for metastatic disease. 6. Redemonstration of a left adrenal nodule measuring up to 2.5 cm, concerning for a metastatic lesion. 7. Multiple bilateral hyper and hypodense renal parenchymal lesions are unchanged. Paracentesis Ultrasound 04/17/21 13:00 IMPRESSION: Ultrasound-guided paracentesis. Doppler Study Ultrasound 04/17/21 13:34 IMPRESSION: Technically difficult exam but portal veins appear occluded. Question mild intrahepatic biliary duct dilatation. Dilated common bile duct measuring 1.6 cm. Gallstones. Multiple solid hypoechoic liver lesions worrisome for neoplasm. Enlarged right kidney. Nonvisualization of the pancreas. Liver Biopsy Ultrasound 04/20/21 13:30 IMPRESSION: Ultrasound-guided liver biopsy. Pending studies at discharge: Pending at discharge 04/17/21 12:57 Cytology [PTH] Routine 04/20/21 13:32 Surgical [PTH] Routine Discharge Plan Discharge Patient Disposition: Home, Self-Care Discharge Diagnosis: suspicious pancreatic neoplasm with likely metastases + ascites, portal venous thrombosis, hyponatremia Referrals: Cj Blackburn FNP-BC [Primary Care Provider] - 04/28/21 4:00 pm (You have a primary care follow up appointment scheduled on April 28 at 4:00 pm. Please call your doctor's office if you need to reschedule. ) Alejandra Fuentes MD [Physician] - 1 Week Golden Lopez MD [Physician] - 1 Week Discharge Medications: New enoxaparin 100 mg/mL Syringe 100 mg subcut Q12H Qty: 60 RF: 0 urea (bulk) 100 % Powder 30 g PO DAILY Qty: 900 RF: 0 Continued lisinopril 5 mg tablet 5 mg PO DAILY Qty: 100 RF: 3 atorvastatin 10 mg tablet 10 mg PO DAILY Qty: 30 RF: 3 amlodipine 5 mg tablet 5 mg PO DAILY Qty: 30 RF: 2 clonidine HCl 0.1 mg tablet 0.1 mg PO DAILY 90 Days Qty: 90 RF: 1 metformin 500 mg tablet 500 mg PO BID Qty: 60 RF: 2 multivitamin Tablet 1 tab PO DAILY RF: 0 B-complex with vitamin C Tablet 1 tab PO DAILY RF: 0 timolol maleate 0.25 % gel forming solution 1 drp QAM RF: 0 allopurinol 300 mg tablet 300 mg PO DAILY RF: 0 Discharge Orders: Discharge Order (Routine); Ordered 04/21/21 Ordered By: My Mccabe Diet: diabetic diet Activity on Discharge: As tolerated Stand Alone Forms: Patient Portal Discharge page Other Ambulatory Orders: Basic Metabolic Panel (Routine) Timeframe: 3 Days Facility: [facility] - Location: Laboratory Ordered By: My Mccabe Care Plan Goals: diagnosis and treatment of pancreatic neoplasm Health Concerns: suspicious pancreatic neoplasm with likely metastases + ascites portal venous thrombosis hyponatremia Plan of Treatment: follow up with Dr Fuentes [Oncology] in 1 week for results of ascites cytology and liver biopsy pathology: [phone] [address] take enoxaparin [Lovenox] 100 mg injected twice daily restrict fluid intake to 1500 mL/day and take urea powder 30 grams daily check basic metabolic panel in 3 days follow up with Dr Lopez [Nephrology] in 1 week for management of hyponatremia: Assessment: as above Patient Instructions: Enoxaparin (By injection)
[2021-04-21] MEDS: Enoxaparin Sodium 100 MG/ML SYRINGE SUBCUT (13:11)
[2021-04-21 18:42] LABS: Parathyroid Hormone Related Pr 11 pg/mL (14-27)
== END 2021-04-21 13:35 | disposition home or self-care (01) | DRG 281 ==
LOC: HO.ED 04-17 00:07 → HO.EDOVER 04-17 00:24 → HO.S3 04-17 00:25
PROVIDERS: Hospitalist; Internal Medicine Medical Oncology; Nurse Practitioner Family; Radiology Diagnostic Radiology; Admitting Provider Internal Medicine; Emergency Provider Student in an Organized Health Care Education/Training Program; PCP Nurse Practitioner Family; Visit Provider Family Medicine
PROC: 0W9G3ZZ Drainage of Peritoneal Cavity, Percutaneous Approach (ICD-10-PCS; principal; 2021-04-17 12:00)
PROC: 0FB23ZX Excision of Left Lobe Liver, Percutaneous Approach, Diagnostic (ICD-10-PCS; principal; 2021-04-20 12:00)
DX: C25.9 Malignant neoplasm of pancreas, unspecified (principal); I81 Portal vein thrombosis; R18.0 Malignant ascites; J18.9 Pneumonia, unspecified organism; C78.01 Secondary malignant neoplasm of right lung; E22.2 Syndrome of inappropriate secretion of antidiuretic hormone; K85.90 Acute pancreatitis without necrosis or infection, unspecified; C78.7 Secondary malignant neoplasm of liver and intrahepatic bile duct; C78.02 Secondary malignant neoplasm of left lung; E87.2 Acidosis; E78.5 Hyperlipidemia, unspecified; C79.72 Secondary malignant neoplasm of left adrenal gland; I10 Essential (primary) hypertension; E11.9 Type 2 diabetes mellitus without complications; Z20.822 Contact with and (suspected) exposure to COVID-19; Z87.891 Personal history of nicotine dependence; Z79.84 Long term (current) use of oral hypoglycemic drugs; Z79.899 Other long term (current) drug therapy
CPT/HCPCS: 0241U; 36415; 47000; 49083; 71250; 74177; 76705; 76942; 80048; 80051; 80053; 82105; 82378; 82945; 82947; 83519; 83605; 83615; 83690; 83880; 83930; 83935; 84145; 84155; 84157; 84300; 84540; 85025; 85027; 85610; 85730; 86301; 86304; 87040; 87071; 87073; 87116; 87205; 88112; 88305; 88307; 88341; 88342; 89051; 93975; 96365; 99152; 99285; 99291; J0456; J0696; J1650; Q9967

== ENCOUNTER 2021-04-24 09:15 | Outpatient (REF) | payer BC, SELFPAY ==
[2021-04-24 12:41] LABS: Anion Gap 14 (12-20); Blood Urea Nitrogen 30 mg/dL (9-16); Calcium 9.7 mg/dL (8.4-10.2); Carbon Dioxide 22 mmol/L (22-29); Chloride 98 mmol/L (96-108); Estimated Glomerular Filt Rate > 60; Glucose Random 130 mg/dL (60-115); Potassium 4.6 mmol/L (3.3-5.1); Sodium 129 mmol/L (135-145)
[2021-04-24 16:59] LABS: Creatinine Urine 87.05 mg/dL; Microalbum/Creatinine Ratio Ur 5.7 ug/mg cr
== END 2021-04-24 09:16 | disposition home or self-care (01) ==
LOC: HO.HMGCLDS 09:15
PROVIDERS: Family Medicine; PCP Nurse Practitioner Family; Visit Provider Nurse Practitioner Family
DX: E87.1 Hypo-osmolality and hyponatremia (principal); E11.9 Type 2 diabetes mellitus without complications
CPT/HCPCS: 36415; 80048; 82043

== ENCOUNTER 2021-05-01 13:16 | Outpatient (RCR) | payer BC, SELFPAY ==
[2021-05-01 13:52] VITALS: BP 105/63; PULSE 93; RESP 12; TEMP 36.3; O2SAT 94; BMI 30.8
--- NOTE | 2021-05-01 13:54 | P.PNHO_ITS ---
Medical Summary - Medical Summary Date of Service: 05/01/21 Chief complaint: Follow-up inpatient stay, pancreatic carcinoma with liver Mets. Medical Summary: DIAGNOSIS: PANCREATIC CARCINOMA WITH LIVER METS. Interval History Interval history: Jose De is a pleasant 61 year old gentleman, who was seen in house. He had presented to the emergency department with abnormal labs. Patient was admitted to [facility], last month. He was discharged, on 03/27 being treated for acute pancreatitis secondary to alcohol use. He had a follow-up with his PCP yesterday. His labs revealed multiple abnormalities including elevated lipase and sodium of 126, so he was sent to the hospital for further evaluation. He denies any abdominal pain at this time, no nausea, no vomiting, no diarrhea or constipation, no urinary symptoms. He denies any chest pain, but reports mild dyspnea on exertion that has been chronic. Denies any lower extremity edema and no cough or sputum production. He has no headache or change in vision. Reports that he has not drink alcohol since his admission in March. He reports that he is feeling rather well. His vitals: temp of 98.4?, heart rate of 111, blood pressure 108/72, satting 97% on room air Labs: significant for WBC of 22.1,which improved to 18.4, hemoglobin of 12.3, PT of 18.4, INR of 1.6. Sodium of 124, potassium 4.9, glucose of 136, lactic acid of 2.7 that improved after fluids to 1.8. Total bili of 3.3, AST of 71, ALT of 62, alk-phos of 531, lipase of 789, which improved to 394. COVID-[address] and chest and chest showed multiple abnormalities: including right-sided pleural effusion with bibasilar atelectasis versus infiltrate, increased when compared to previous study, bilateral pulmonary nodules measuring up to 0.8 cm concerning for metastatic disease, prominence of the pancreatic head with a lobulated cystic focus within the uncinate process and increased dilatation of the main pancreatic duct with increased adjacent inflammatory change suggesting pancreatic neoplastic lesion. Multiple hepatic parenchymal lesions concerning for metastasis. Mild to moderate abdominal ascites, prominent periportal and retroperitoneal lymph nodes concerning for metastatic disease, left adrenal nodule measuring 2.5 cm concerning for metastatic disease. ROS: He tells me his energy level is very low. He has a hard time sleeping. Since he has been home, he has not been able to walk. He can just transfer from wheelchair to bed or bathroom. Even that is difficult. He denies fever nor chills. Appetite is very poor. He has been trying to eat small meals. He has also been trying supplements. Denies headache. He does get dizzy at times. No chest pain or trouble breathing. He denies abdominal pain however his abdomen is very full and distended. Denies nausea or vomiting. No diarrhea. No gross blood in the stools. Stool color is brown. No dysuria or hematuria. Urine color is yellow. He denies any joint pains. He feels weak all over. He does appear rather depressed. No skin rashes nor pruritus. PAST MEDICAL HISTORY: Hypertension, Hyperlipidemia, Diabetes, Alcohol use disorder. FAMILY HISTORY: Dad had lung cancer. No history of pancreatic malignancy in the family. 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 He is . Has 5 children. He smoked for 20 years. He drinks heavily. He has not had a drink since his last visit to the hospital back in March. Review of Systems - Constitutional Reports no additional constitutional complaints, Reports fatigue, Denies fever(s), Denies headache(s), Reports lack of energy, Reports malaise, Reports poor appetite, Reports weight gain - Eyes Reports no additional eye complaints Comments: Sclera are icteric. - ENT Reports no additional ear, nose, mouth, and throat complaints - Cardiovascular Reports no additional cardiovascular complaints - Respiratory Reports no additional respiratory complaints - Gastrointestinal Reports no additional gastrointestinal complaints - Genitourinary Genitourinary: Reports no additional male genitourinary complaints - Musculoskeletal Reports no additional musculoskeletal complaints - Integumentary/Breasts Skin/Breast: Reports no additional skin complaints - Neurologic Reports no additional neurologic complaints - Psychiatric Reports no additional psychiatric complaints - Endocrine Reports no additional endocrine complaints - Hematologic/Lymphatic Reports no additional hematologic/lymphatic complaints - Allergic/Immunologic Reports no additional allergic/immunologic complaints [facility] Medical History: Medical History (Last Reviewed 05/01/21 @ 13:54 by So Pineda) Adrenal mass Diabetes ETOH abuse HTN (hypertension) Hx of gout Hyperlipidemia Hyponatremia Lactic acidosis Metastatic disease Pancreatic cancer Pancreatitis Pneumonia Pulmonary nodules Tobacco use Functional capacity: wheelchair bound Patient : No Family History: Family History (Last Reviewed 05/01/21 @ 13:54 by So Pineda) Father Lung cancer Mother Diabetes Surgical History: Surgical History (Last Reviewed 05/01/21 @ 13:54 by So Pineda) H/O left knee surgery Social History: Social History (Last Reviewed 05/01/21 @ 13:54 by So Pineda) Living Situation History: Household Members: Spouse Housing: House Do you presently have visiting nurse or other home services: No Alcohol History: Alcohol intake: current Alcohol History Details: Alcohol intake frequency: a few times a week Tobacco History: Patient Tobacco Use Status: Former Tobacco user Years Smoked: 2.5 years ago e-Cigarette/Vaping Use: Never Used Second Hand Smoke Exposure: No Occupation Assessmet: service: No Current occupational status: employed Current occupational status: retired Oncology Screenings - ECOG Performance Status ECOG Performance Status: 2 Home Medications and Allergies Home Medications Medication Instructions Recorded Confirmed Type allopurinol 300 mg tablet 300 mg PO DAILY 12/02/20 05/01/21 History B-complex with vitamin C 1 tab PO DAILY 03/27/21 05/01/21 History multivitamin 1 tab PO DAILY 03/27/21 05/01/21 History timolol maleate 0.25 % eye gel 1 drp QAM 03/27/21 05/01/21 History forming solution Allergies Allergy/AdvReac Type Severity Reaction Status Date / Time No Known Allergies Allergy Verified 04/28/21 16:29 [No Known Allergies*] Exam Vital signs: Vital Signs Temp 97.4 F 05/01/21 13:52 Pulse 93 05/01/21 13:52 Resp 12 05/01/21 13:52 BP 105/63 05/01/21 13:52 Pulse Ox 94 05/01/21 13:52 Intake & Output 04/30/21 05/01/21 05/01/21 18:59 06:59 18:59 Other: Weight 115 kg Weight in Grams [id number] Weight 115 kg Body Mass Index 30.8 - Constitutional Present: no acute distress, moderate distress - Routine HEENT Exam Head: Present: normal inspection Eye: Present: normal appearance ENT: Present: mucous membranes moist - Routine Neck Exam Present: full ROM - Routine Respiratory Exam Present: CTAB - Routine Cardiovascular Exam Cardiovascular: Present: RRR, S1, S2 - Routine Abdominal Exam Present: normal bowel sounds, soft, nontender Comments: Distended and tense ascites - Routine Extremities Exam Present: nontender - Routine Back/Spine/Pelvis Exam Back/Spine: Present: full ROM - Routine Skin Exam Present: intact - Routine Neurological Exam Present: alert, oriented X3 - Routine Psychiatric Exam Present: normal affect Assessment and Plan Patient Active problem list reviewed?: Yes (1) Pancreatic cancer metastasized to liver Status: Acute Assessment and plan: This is an unfortunate 61-year-old gentleman, who presented with abnormal labs, including leukocytosis, anemia and hyponatremia. CT scan of the abdomen revealed: 1. Small right-sided pleural effusion with bibasilar atelectasis versus infiltrates, increased when compared to the prior examination. Innumerable bilateral pulmonary nodules measuring up to 0.8 cm. Findings are concerning for metastatic disease. 2. Dilatation of the ascending thoracic aorta measuring up to 4.1 cm. Prominence of the main pulmonary arteries, which can be seen in the setting of pulmonary hypertension. 3. Prominence of the pancreatic head with a lobulated cystic focus within the uncinate process. Increasing dilatation of the main pancreatic duct with increasing adjacent inflammatory change. Findings are concerning for a pancreatic neoplastic lesion. Endoscopic ultrasound or abdominal MRI without and with contrast could help further evaluate. 4. Multiple hepatic parenchymal lesions, the largest of which is within the hepatic dome. Findings are concerning for hepatic parenchymal metastases. No intra- or extrahepatic biliary ductal dilatation. 5. Aksg-zo-venxifle abdominal ascites, new when compared to the prior examination. Stable prominent periportal and retroperitoneal lymph nodes, concerning for metastatic disease. 6. Redemonstration of a left adrenal nodule measuring up to 2.5 cm concerning for a metastatic lesion. 7. Multiple bilateral hyper and hypodense renal parenchymal lesions are unchanged. My concern was pancreatic carcinoma with Mets to lung liver and left adrenal gland. Next step was to proceed with tissue diagnosis. He had a biopsy of 1 of the liver lesions on 04/20. Pathology revealed: Adeno carcinoma, poorly differentiated, consistent with a pancreaticobiliary primary. His tumor marker, CA 19-9: 88,315. DATABASE: CBC: WBC 13.7, HGB 11.4, HCT 32.2, platelets 238. CMP: SODIUM 125, POTASSIUM 5.7, CHLORIDE 96, CO2 20. BUN 36, INDEPENDENT LIVING SPECIALIST 0.9. KALLIE 9.3. LFTS: 5.9/747/65/52. He is here for a follow-up visit. It appears that his functional status has declined. He is rather fatigued. He is not able to eat too much. He has tense ascites. I went over the course and prognosis of metastatic pancreatic carcinoma. Offered options: 1. Palliative care. 2. Palliative chemotherapy with gemcitabine Abraxane based regimen. I shared information about the chemotherapy drugs including potential side effects. He and the family are going to discuss further and come up with a decision. I had a detailed discussion with his insisted about expected life expectancy of 3-6 months, in the setting of metastatic pancreatic carcinoma. They wanted informational visit with hospice. Will arrange that. I did offer that he can try 1 cycle and see how he tolerates it, then make up his mind. PLAN: Will proceed with paracentesis for therapeutic purposes, today. He will need to go to short stay. Hopefully that will help improve his appetite. I am also concerned about his jaundice worsening. Will get ultrasound of the abdomen to look for any biliary obstruction. If it is more of obstructive nature, He may need to have a stent placed. His sodium is 125. He could not tolerate urea. Will start him on demeclocycline 150 mg b.i.d. along with the fluid restriction. He will return next week for a follow-up. Thank you, CC: Dr. Blackburn. - Time Spent With Patient Time Spent with Patient (in minutes): 40
[2021-05-01 13:59] LABS: MANUAL DIFF FLAG NO
[2021-05-01 14:14] LABS: Basophils Percent Auto 0.1 % (0-2); Eosinophils Absolute Auto 0.1 X10*3/uL (0.0-0.4); Eosinophils Percent Auto 0.7 % (0-4); Hematocrit 32.2 % (42-52); Hemoglobin 11.4 g/dl (14.0-18.0); Imm Gran Pct Auto 1.5 % (0.0-0.4); Lymphocytes Absolute Auto 0.9 X10*3/uL (1.2-4.9); Lymphocytes Percent Auto 6.8 % (20-40); Mean Corpuscular HGB Conc 35.4 g/dl (31.0-36.0); Mean Corpuscular Hemoglobin 32.8 pg (27.0-33.0); Mean Corpuscular Volume 92.5 fL (80-98); Mean Platelet Volume 10.5 fL (9.4-12.4); Monocytes Absolute Auto 1.2 X10*3/uL (0.1-1.2); Neutrophils Absolute Auto 11.2 X10*3/uL (2.0-8.3); Neutrophils Percent Auto 81.9 % (45-73); Platelet Count 238 X10*3/uL (160-400); Red Blood Count 3.48 X10*6/uL (4.60-5.80); Red Cell Distribution Width 21.2 % (11.0-16.0); White Blood Count 13.7 X10*3/uL (4.8-10.8)
[2021-05-01 14:46] LABS: Alanine Aminotransferase 52 U/L (0-40); Albumin Level 2.8 g/dL (3.5-5.0); Alkaline Phosphatase 747 U/L (39-117); Anion Gap 15 (12-20); Aspartate Amino Transferase 65 U/L (5-37); Bilirubin Total 5.9 mg/dL (0.0-1.0); Blood Urea Nitrogen 36 mg/dL (9-16); Calcium 9.3 mg/dL (8.4-10.2); Carbon Dioxide 20 mmol/L (22-29); Chloride 96 mmol/L (96-108); Estimated Glomerular Filt Rate > 60; Glucose Random 135 mg/dL (60-115); Potassium 5.7 mmol/L (3.3-5.1); Sodium 125 mmol/L (135-145); Total Protein 6.2 g/dL (6.5-8.0)
--- NOTE | 2021-05-01 16:41 | MHC.HEMONC ---
I met with new Onc pt with metastatic pancreatic cancer. He was accompanied by his and sister. He is c/o weakness and abdominal fullness. Dr Fuentes had labs done and paracentisis ordered and pt sent to [facility] for this. Dr Fuentes also mentioned hospice informational which I will coordinate on Tuesday. MOLST form completed and pt will bring in copy of his HCP next visit.
[2021-05-01] MEDS: Lidocaine HCl 1 % MPF 5 ML VIAL SUBCUT (17:48)
--- NOTE | 2021-05-04 12:53 | MHC.HEMONC ---
Faxed notes and demographics to [facility] for Informational visit at Dr Fuentes's request.
--- NOTE | 2021-05-04 14:24 | MHC.HEMONC ---
I spoke with pt as he did not answer phone. We discussed Hospice Informational that was to be scheduled. She stated that he was thinking of possibly trying the Gemzar/Abraxane that Dr Fuentes had mentioned and given information on. I did encourage her to ask him if we could discuss both options with him so that he can make an informed decision on his care. They are scheduled to copme in at 2 pm tomorrow for chemo education. They will also receive a hospice worker into their home for informational appt.
--- NOTE | 2021-05-05 10:50 | MHC.HEMONC ---
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 She stated that they would like Hospice Home Care vs any kind of treatment due to his physical status. He is having pain when he moves or turns so I asked Dr Fuentes to order something at their request. I called Hospice to make sure they call them with a Consult date. We will do a Telehealth visit early next week. Pt educated on the goals of Hospice and the support they will be able to offer her.
--- NOTE | 2021-05-05 14:42 | MHC.HEMONC ---
ELIEL submitted for Oxycodone. Informed pt pharmacy that he will need an emergency supply while awaiting Hospice visit (end of week). Pt informed and did ask if he could also have an rx for Nystatin for white patches in mouth . Dr Fuentes informed and will order. I told pt , Sofia, to call if he needs anything else while awaiting Hospice consult.
== END 2021-05-17 | disposition home or self-care (01) ==
LOC: HO.ONC 13:16
PROVIDERS: Visit Provider Internal Medicine Medical Oncology
DX: C25.9 Malignant neoplasm of pancreas, unspecified (principal); C78.7 Secondary malignant neoplasm of liver and intrahepatic bile duct; R91.8 Other nonspecific abnormal finding of lung field; E27.8 Other specified disorders of adrenal gland; R18.8 Other ascites
CPT/HCPCS: 36415; 49083; 76705; 80053; 85025

== ENCOUNTER 2021-05-01 15:00 | Day surgery (SDC) | payer BC, SELFPAY ==
--- NOTE | ~2021-05-01 | US_ITS ---
EXAMINATION: ULTRASOUND-GUIDED PARACENTESIS CLINICAL INFORMATION: Ascites COMPARISON: Previous exam 04/17/2021 TECHNIQUE: Procedure and risks and benefits including bleeding, infection and low blood pressure were discussed with the patient and informed consent was obtained. The left lower quadrant was prepped and draped in the usual sterile fashion. The skin and soft tissues were anesthetized with 1% lidocaine plain. Using ultrasound guidance and a 5 Italian rapid centesis catheter, access to the ascitic fluid was obtained. 6.3 L of clear yellow fluid was removed. No diagnostic specimen was sent. The patient received 50 g of intravenous albumin during the procedure. FINDINGS: There is a large amount of ascites. US/US paracentesis abd w/image IMPRESSION: Ultrasound-guided paracentesis.
--- NOTE | ~2021-05-01 | US_ITS ---
EXAMINATION: US ABDOMEN LIMITED CLINICAL INFORMATION: Rule out biliary obstruction. COMPARISON: Ultrasound abdomen limited dated 04/17/[address] abdomen and pelvis with contrast dated 04/16/2021. TECHNIQUE: Real-time imaging of the right upper quadrant abdominal viscera. FINDINGS: PANCREAS: Not well visualized due to bowel gas. The main pancreatic duct is dilated measuring 0.8 cm. LIVER: The liver is enlarged. There are multiple focal liver lesions suggestive of metastatic disease.. There is mild intrahepatic biliary duct dilatation. GALLBLADDER: The gallbladder is dilated measuring 11 x 5.5 x 7 cm in sagittal transverse and AP dimension. There are small gallstones in the gallbladder. Gallbladder wall is slightly thickened measuring 0.4 cm. COMMON BILE DUCT: The common bile duct is dilated measuring 1.4 cm. Measuring 1.4 cm in diameter. RIGHT KIDNEY: There are 2 cysts seen in the upper and midpole measuring 1.7 cm and 2.4 cm. No hydronephrosis or renal calculi. The kidney measures 14.8 cm in maximum dimension. FREE FLUID: There is a small amount of ascites seen posterior to the liver post paracentesis. Visualized main portal vein appears patent. US/US abdomen limited IMPRESSION: Enlarged liver with multiple focal liver lesions. New intra and extrahepatic biliary duct dilatation. Dilated gallbladder and gallstones. Dilated main pancreatic duct. Visualized main portal vein appears patent.
[2021-05-01 16:06] VITALS: BP 106/69; PULSE 93; RESP 16; TEMP 36.1; O2SAT 96; BMI 30.9
--- NOTE | 2021-05-01 17:05 | HO.RADPN ---
RADIOLOGY Narrative Narrative: LLQ paracentesis performed using 5 fr catheter. Clear yellow fluid removed. No specimen sent.
[2021-05-01 17:35] VITALS: BP 87/46; PULSE 89; RESP 17; TEMP 36.6; O2SAT 95
[2021-05-01 17:40] VITALS: BP 110/66; PULSE 88; RESP 16; O2SAT 96
[2021-05-01 18:00] VITALS: BP 105/62; PULSE 87; RESP 16; O2SAT 95
[2021-05-01 18:15] VITALS: PULSE 87; RESP 16; O2SAT 96
[2021-05-01 18:30] VITALS: BP 109/67; PULSE 86; RESP 18; O2SAT 96
== END 2021-05-01 18:42 | disposition home or self-care (01) ==
LOC: HO.SSS 18:52
PROVIDERS: Radiology Diagnostic Radiology; PCP Nurse Practitioner Family; Visit Provider Internal Medicine Medical Oncology
DX: R18.8 Other ascites (principal); C25.9 Malignant neoplasm of pancreas, unspecified; C78.7 Secondary malignant neoplasm of liver and intrahepatic bile duct; E11.9 Type 2 diabetes mellitus without complications; I10 Essential (primary) hypertension
CPT/HCPCS: 49083; 76705; P9047